=== PATIENT | female | born 1985 | race Caucasian/White ===

== ENCOUNTER → 2019-07-01 13:29 | Outpatient (BNVA) | payer MEDICAID, SELFPAY | PROVIDERS: PCP Nurse Practitioner Family; Visit Provider Nurse Practitioner | DX: J06.9 Acute upper respiratory infection, unspecified (principal); H66.92 Otitis media, unspecified, left ear | CPT/HCPCS: 87804 ==

== ENCOUNTER 2019-07-20 19:28 | Emergency (ER) | payer SELFPAY ==
[2019-07-20 19:28] VITALS: BP 143/90; PULSE 84; RESP 20; TEMP 36.7; O2SAT 98; BMI 34.4
--- NOTE | 2019-07-20 19:41 | ED_ITS ---
HPI - Fall General: Chief Complaint: Fall Stated Complaint: FALL Time Seen by Provider: 07/20/19 19:41 Source: patient Mode of arrival: EMS History of Present Illness: HPI Narrative: tripped going down a flight of stairs and landed onto R side; complains of R hip and back pain; denies striking her head, LOC, neck/back pain MD complaint: fall Onset (ago): hour(s) Fall from: standing Fall witnessed: yes, by family Place fall occurred: home Loss of consciousness: None Prolonged down time: no Symptoms prior to fall: none Context: tripped/slipped Location of injury: back and other (R hip) Associated symptoms-after fall: Denies abdominal pain, chest pain, headache(s), lightheadedness or neck pain Review of Systems Const: Denies: fever or chills Eyes: Denies: change in vision or blurry vision Card: Denies: chest pain, palpitations, irregular heart rhythm, edema, swelling of feet/ankles, lightheadedness, syncope or pre-syncope Resp: Denies: shortness of breath, productive cough or chest congestion GI: Denies: abdominal pain, nausea or vomiting : Denies: flank pain, difficulty urinating, painful urination, urinary frequency or urinary urgency Musc: Reports: back pain, joint pain and limited range of motion; Denies: neck pain, extremity pain, extremity swelling, joint swelling, redness or joint warmth Neuro: Denies: headache, numbness in extremities, weakness in extremities or changes in sensation PFS ED PFSH: Social History Smoking and tobacco status: current every day smoker Physical Exam Const: COMMON NORMALS: oriented x3, no limitations, alert and well nourished GENERAL APPEARANCE: in distress (in pain) NUTRITIONAL APPEARANCE: obese Eye: COMMON NORMALS: PERRL and EOMs intact bilaterally PUPIL: Yes PERRL Neck/C-Spine: COMMON NORMALS: full ROM and no lymphadenopathy CERVICAL SPINE: Yes cervical ROM normal, No pain with cervical ROM, No cervical spine tenderness and No paracervical muscle tenderness Chest: COMMONS NORMALS: inspection of chest normal and palpation of chest normal Resp: COMMON NORMALS: normal respiratory effort and clear to auscultation bilaterally AUSCULTATION: clear to auscultation bilaterally Cardio: COMMON NORMALS: regular rate and regular rhythm RATE: regular rate RHYTHM: regular rhythm GI: COMMON NORMALS: normal to inspection, nondistended, normoactive bowel sounds, soft to palpation and non-tender PALPATION: Yes soft : COMMON NORMALS: Yes no CVA tenderness BLADDER/KIDNEY EXAM: Yes no CVA tenderness Back/Pelvis: COMMON NORMALS: no CVA tenderness OTHER: TTP lower lumbar spine; no step offs Extremity: RIGHT LOWER EXTREMITY: Yes hip joint Right hip: Yes palpation and Yes ROM (decreased secondary to pain) Neuro: COMMON NORMALS: oriented x3 SENSORIUM/ORIENTATION: Yes alert Skin: COMMON NORMALS: no rashes or lesions noted GENERAL SKIN EXAM: no rashes or lesions noted Course Vital Signs: Vital signs: Vital Signs Temperature 98.1 F 07/20/19 19:28 Pulse Rate 84 07/20/19 19:28 Respiratory Rate 21 H 07/20/19 20:43 Blood Pressure 143/90 07/20/19 19:28 Pulse Oximetry 98 07/20/19 20:43 MDM - Fall Imaging Data^: CT lumbar: Radiologist's impression: [place] [address] CT Scan Report Signed Patient: Nicolasa Conklin Unit #: [id number] : 1985 Acct#:O [id number] Age/Sex: 34 / F ADM Date: 07/20/19 Loc: ER Room/Bed: Attending Dr: Ordering Provider/Ordering MD: Aiyana Garcia Date of Service: 07/20/19 Procedure(s): CT lumbar spine wo con* [id number] Accession Number(s): [id number] Report Number: [id number] PROCEDURE INFORMATION: Exam: CT Lumbar Spine Without Contrast Exam date and time: 07/20/2019 7:50 PM Age: 34 years old Clinical indication: Injury or trauma; Fall; Initial encounter; Blunt trauma (contusions or hematomas); Additional info: Fall; Pain TECHNIQUE: Imaging protocol: Computed tomography images of the lumbar spine without contrast. Total DLP: 2559.67 mGy-cm Radiation optimization: All CT scans at this facility use at least one of these dose optimization techniques: automated exposure control; mA and/or kV adjustment per patient size (includes targeted exams where dose is matched to clinical indication); or iterative reconstruction. COMPARISON: CR Lumbar Spine Flex/Extens [id number] 08/18/2015 9:47 AM FINDINGS: Vertebrae: No acute fracture. Normal alignment. Yzuu-lt-gvfvdtda facet degenerative changes are noted in the lower lumbar spine. Discs/Spinal canal/Neural foramina: No disc herniations. No spinal canal stenosis. No neural foraminal narrowing. There is a tiny disc bulge at L4-L5 without stenosis or significant foraminal narrowing. No additional disc bulge or protrusion. Soft tissues: Unremarkable. CT/CT lumbar spine wo con* [id number] IMPRESSION: No acute findings. Radiation Dose CTDIVOL = (mGy): DLP = 2559.67 (mGy-cm) Dictated By: Nicky Burger Signed By: Nicky Burger Signed Date/Time: 07/20/192044 DD/ 43 XR sacrum/coccyx: My impression: NAD XR R hip/pelvis: Radiologist's impression: NAD Discharge Plan Discharge Patient Disposition: Home, Self-Care Clinical Impression: Fall down stairs Qualifiers: Encounter type: initial encounter Qualified Code(s): W10.8XXA - Fall (on) (from) other stairs and steps, initial encounter Contusion of hip, right Qualifiers: Encounter type: initial encounter Qualified Code(s): S70.01XA - Contusion of right hip, initial encounter Back contusion Qualifiers: Encounter type: initial encounter Laterality: unspecified laterality Qualified Code(s): S20.229A - Contusion of unspecified back wall of thorax, initial encounter Condition: Stable Prescriptions: New hydrocodone-acetaminophen 5-325 mg tablet 1 tab PO Q6H PRN (Reason: pain) Qty: 14 RF: 0 No Action metformin 500 mg tablet 500 mg PO BID 30 Days Qty: 60 RF: 2 promethazine 6.25 mg/5 mL syrup 12.5 mg PO BID PRN (Reason: allergy symptoms) Qty: 200 RF: 0 Discharge Orders: Discharge Order (Routine); Ordered 07/20/19 Ordered By: Aiyana Garcia Referrals: Mika Smith, ELECTROCARDIOGRAPH REPAIRER [Primary Care Provider] - Discharge Activity: Increase activity as tolerated Activity Restrictions/Additional Instructions: Follow up with primary care in 3-5 days if pain does not seem to be improving. Coding Level of Care Code ED [place] Supervisor for Danae Bowling
--- NOTE | 2019-07-20 19:49 | CTR_ITS ---
PROCEDURE INFORMATION: Exam: CT Lumbar Spine Without Contrast Exam date and time: 07/20/2019 7:50 PM Age: 34 years old Clinical indication: Injury or trauma; Fall; Initial encounter; Blunt trauma (contusions or hematomas); Additional info: Fall; Pain TECHNIQUE: Imaging protocol: Computed tomography images of the lumbar spine without contrast. Total DLP: 2559.67 mGy-cm Radiation optimization: All CT scans at this facility use at least one of these dose optimization techniques: automated exposure control; mA and/or kV adjustment per patient size (includes targeted exams where dose is matched to clinical indication); or iterative reconstruction. COMPARISON: Lumbar Spine Flex/Extens [id number] 08/18/2015 9:47 AM FINDINGS: Vertebrae: No acute fracture. Normal alignment. Qjof-th-ltuwhsla facet degenerative changes are noted in the lower lumbar spine. Discs/Spinal canal/Neural foramina: No disc herniations. No spinal canal stenosis. No neural foraminal narrowing. There is a tiny disc bulge at L4-L5 without stenosis or significant foraminal narrowing. No additional disc bulge or protrusion. Soft tissues: Unremarkable. CT/CT lumbar spine wo con* [id number] IMPRESSION: No acute findings. Radiation Dose CTDIVOL = (mGy): DLP = 2559.67 (mGy-cm)
--- NOTE | 2019-07-20 19:49 | XR_ITS ---
WS: [id number] Sacrum and coccyx, 3 views, 07/20/2019 Clinical Data: fall; pain Comparison: None. Findings: No fractures or dislocations are seen. The SI joints and pubic symphysis are unremarkable. No bone de struction or erosion is seen. XR/XR sacrum coccyx min 2V [id number] Impression: Negative sacrum and coccyx.
--- NOTE | 2019-07-20 19:49 | XR_ITS ---
WS: [id number] Right hip, AP and frog leg, AP pelvis, 07/20/2019 Clinical Data: fall/pain Comparison: None. Findings: No fractures or dislocations are seen. The hip joints are intact. The soft tissues are not remarkable . The adjacent pelvis is normal. Right hip is unremarkable. The SI joints and pubic symphysis are normal. The bladder is partly full. XR/XR hip RT 2-3V wo/w pel* [id number] Impression: Negative AP pelvis and right hip.
[2019-07-20 20:43] VITALS: RESP 21; O2SAT 98
[2019-07-20] MEDS: morphine 4 mg/mL SDV 1 mL IM (20:43)
[2019-07-20 21:28] VITALS: BP 122/84; PULSE 75; RESP 16; TEMP 36.5; O2SAT 97
== END 2019-07-20 21:29 | disposition home or self-care (01) ==
LOC: ER 21:12
PROVIDERS: Emergency Provider Physician Assistant; PCP Nurse Practitioner Family
DX: S70.01XA Contusion of right hip, initial encounter (principal); S20.229A Contusion of unspecified back wall of thorax, initial encounter; F17.200 Nicotine dependence, unspecified, uncomplicated; E66.9 Obesity, unspecified; Z68.34 Body mass index [BMI] 34.0-34.9, adult; W10.9XXA Fall (on) (from) unspecified stairs and steps, initial encounter; Y92.009 Unspecified place in unspecified non-institutional (private) residence as the place of occurrence of the external cause
CPT/HCPCS: 72131; 72220; 73502; 96372; 99281; 99283; J2270

== ENCOUNTER → 2019-08-12 08:37 | Outpatient (BNVA) | payer SELFPAY | PROVIDERS: PCP Nurse Practitioner Family; Visit Provider Nurse Practitioner | DX: S49.91XA Unspecified injury of right shoulder and upper arm, initial encounter (principal); M25.511 Pain in right shoulder; M25.521 Pain in right elbow; J30.9 Allergic rhinitis, unspecified; X58.XXXA Exposure to other specified factors, initial encounter | CPT/HCPCS: 73030; 73070 ==

== ENCOUNTER 2019-08-31 10:30 | Outpatient (CLI) | payer SELFPAY ==
--- NOTE | 2019-08-31 11:00 | MR_ITS ---
WS: [id number] MRI RIGHT SHOULDER NONCONTRAST TECHNIQUE: Sagittal T2, coronal T1, T2 and proton density imaging. Axial gradient PDE imaging. CLINICAL INFORMATION: Injury COMPARISON: None. FINDINGS: Mild degenerative arthritis at the AC joint. Slight undersurface acromial spurring. Normal subacromia l space. Small amount of tendinopathy in the distal supraspinatus at the insertion. Small amount of f luid along the bursal surface distal supraspinatus tendon. Tiny intrasubstance tear in the distal thi rd supraspinatus tendon along the bursal surface. Trace subacromial/subdeltoid fluid. Normal infraspi natus. Subscapularis is normal. Normal biceps tendon in the bicipital groove. Normal glenoid labrum. Normal biceps labral anchor. Phy siologic fluid along the biceps tendon sheath. MR/MR shoulder RT wo con* [id number] IMPRESSION: 1. Mild degenerative arthritis AC joint with a small amount of edema. Slight u ndersurface spurring. 2. Tendinopathy involving the distal supraspinatus with a small intrasubstance tear. Small amount of edema along the distal supraspinatus tendon. 3. Rotator cuff is otherwise normal in appearance. 4. Biceps tendon is normal in appearance. Normal biceps labral anchor. 5. Glenoid labrum appears grossly normal.
== END 2019-08-31 10:31 | disposition home or self-care (01) ==
LOC: RADSHAW 10:30
PROVIDERS: PCP Nurse Practitioner Family; Visit Provider Nurse Practitioner
DX: S46.911A Strain of unspecified muscle, fascia and tendon at shoulder and upper arm level, right arm, initial encounter (principal); M19.011 Primary osteoarthritis, right shoulder; X58.XXXA Exposure to other specified factors, initial encounter
CPT/HCPCS: 73221

== ENCOUNTER 2019-10-14 12:56 | Outpatient (CLI) | payer MEDICAID, SELFPAY ==
--- NOTE | 2019-10-14 13:18 | MR_ITS ---
WS: [id number] MRI RIGHT SHOULDER ARTHROGRAM HISTORY: PAIN COMPARISON: 08/31/2019 TECHNIQUE: Pre and postcontrast imaging. Gadolinium mixture was injected under fluoroscopy. Coronal T 1 fat sat, sagittal T2 fat sat, coronal T2 fat sat, axial proton density, axial T1 nonfat saturation and ABER sagittal T1 fat sat views are submitted. Precontrast imaging demonstrates mild narrowing of the coracohumeral articulation to 5.6 mm. Biceps t endon is in good position. No marrow signal abnormality. Small osteophytes from the AC joint encroach upon the supraspinatus tendon there is mild thickening of the distal supraspinatus tendon. Postcontrast imaging: There is a small amount of increased signal with thickening of the distal supra spinatus tendon. No definite full-thickness tears are identified. There is no contrast extending into the subacromial or subdeltoid bursa. No muscle atrophy or edema. No labral abnormality or tear. Liu ps tendon in normal position. MR/MR shoulder RT wo/w con [id number] IMPRESSION: 1. No labral tears. 2. Mild distal supraspinatus tendinopathy with fraying along the articular hal face. No full-thickness tear. 3. No joint effusion. 4. Mild AC joint arthropathy and mild narrowing of the coracohumeral interval.
--- NOTE | 2019-10-14 13:25 | IR_ITS ---
WS: [id number] RIGHT SHOULDER ARTHROGRAM UNDER FLUOROSCOPY. PRIOR TO MRI EVALUATION. HISTORY: PAIN COMPARISON: None available. FLUOROSCOPY TIME: 1.2 minutes. Procedure, risks and complications were explained to the patient. Consent has been obtained. Under fluoroscopic guidance the skin is marked over the medial superior third of the humeral head, cl eansed with ChloraPrep and anesthetized with lidocaine. 22-gauge spinal needle is inserted to the cor bismark of the humeral head. Test injection with Omnipaque reveals the needle is appropriately positioned in the joint. A mixture of 10 cc sterile saline, 5 cc Omnipaque and 0.1 mmol gadolinium are injected under fluoroscopic guidance. Patient tolerated the joint distention well. No complications. Uncomplicated injection of contrast into the joint space. No extravasation from the joint space by fl uoroscopy. IR/IR arthrogram shoulderRT [id number] IMPRESSION: Uncomplicated RIGHT shoulder joint injection prior to MRI.
[2019-10-14] MEDS: iohexol 240 mg/mL 50 mL Btl INTRA-ARTI (14:16)
== END 2019-10-14 12:57 | disposition home or self-care (01) ==
PROVIDERS: PCP Nurse Practitioner Family; Visit Provider Orthopaedic Surgery
DX: M25.511 Pain in right shoulder (principal); M12.811 Other specific arthropathies, not elsewhere classified, right shoulder
CPT/HCPCS: 23350; 73223; 77002; A9579; Q9966

== ENCOUNTER → 2019-11-04 17:11 | Outpatient (BNVA) | payer MEDICAID, SELFPAY | PROVIDERS: PCP Nurse Practitioner Family; Visit Provider Nurse Practitioner Family | DX: N63.11 Unspecified lump in the right breast, upper outer quadrant (principal); N64.4 Mastodynia | CPT/HCPCS: 36415; 80053; 85025 ==

== ENCOUNTER 2019-11-26 08:18 | Outpatient (CLI) | payer MEDICAID, SELFPAY ==
--- NOTE | 2019-11-26 08:30 | MM_ITS ---
WS: [id number] DIAGNOSTIC BILATERAL DIGITAL MAMMOGRAM WITH CAD RIGHT breast ultrasound, limited HISTORY: breast lump COMPARISON: None available. TECHNIQUE: Bilateral craniocaudad, mediolateral oblique, and mediolateral views are submitted. Spot c ompression RIGHT CC Computer aided detection utilized. Breast composition: There are scattered areas of fibroglandular density. Normal fibroglandular parenc hyma. No suspicious masses or calcifications. Palpable marker is placed at 12:00. No underlying nodul e. RIGHT breast ultrasound: At 12:00 in the area of the palpable abnormality is a nearly isoechoic nodule measuring 1.1 x 0.7 x 0 .8 cm. No significant increased vascularity. This could be a single lobule of normal breast tissue or fibroadenoma. Ultrasound-guided biopsy recommended of the RIGHT breast mass at 12:00, 3 cm from the nipple. This co rresponds to the palpable abnormality may be benign fibroadenoma or lobulated normal breast tissue. F avor benign etiology due to imaging characteristics. MM/[place] [id number] IMPRESSION: BI-RADS: 4A-Suspicious: Low FOLLOW UP: Biopsy Recommended
--- NOTE | 2019-11-26 09:30 | US_ITS ---
WS: [id number] DIAGNOSTIC BILATERAL DIGITAL MAMMOGRAM WITH CAD RIGHT breast ultrasound, limited HISTORY: breast lump COMPARISON: None available. TECHNIQUE: Bilateral craniocaudad, mediolateral oblique, and mediolateral views are submitted. Spot c ompression RIGHT CC Computer aided detection utilized. Breast composition: There are scattered areas of fibroglandular density. Normal fibroglandular parenc hyma. No suspicious masses or calcifications. Palpable marker is placed at 12:00. No underlying nodul e. RIGHT breast ultrasound: At 12:00 in the area of the palpable abnormality is a nearly isoechoic nodule measuring 1.1 x 0.7 x 0 .8 cm. No significant increased vascularity. This could be a single lobule of normal breast tissue or fibroadenoma. Ultrasound-guided biopsy recommended of the RIGHT breast mass at 12:00, 3 cm from the nipple. This co rresponds to the palpable abnormality may be benign fibroadenoma or lobulated normal breast tissue. F avor benign etiology due to imaging characteristics. US/US breast RT complete [id number] IMPRESSION: BI-RADS: 4A-Suspicious: Low FOLLOW UP: Biopsy Recommended
== END 2019-11-26 08:19 | disposition home or self-care (01) ==
LOC: RADSHAW 08:18
PROVIDERS: PCP Nurse Practitioner Family; Visit Provider Nurse Practitioner Family
DX: N63.11 Unspecified lump in the right breast, upper outer quadrant (principal); N64.4 Mastodynia
CPT/HCPCS: 76641; 77066

== ENCOUNTER 2019-12-04 12:05 | Outpatient (CLI) | payer MEDICAID, SELFPAY ==
--- NOTE | 2019-12-04 13:00 | US_ITS ---
WS: [id number] ULTRASOUND-GUIDED RIGHT BREAST BIOPSY HISTORY: Abnormal mammo COMPARISON: None. Procedure, risks and complications are explained to the patient. Medications are reviewed. Consent is obtained. The mass in the RIGHT breast is localized with ultrasound. Mass at 12:00. Skin is cleansed with Chlor aPrep and anesthetized with 1% buffered lidocaine. Small dermatome is made. Under sterile conditions mass is biopsied with a 14-gauge Achieve needle. Multiple core biopsies are performed. Material place d in formalin and sent to pathology for review. No complications encountered. Breast tissue marker (Bard ultrasound enhanced ribbon): Single. Patient left the radiology suite with no complications. [place] is instructed [place] [facility]. 1. Uncomplicated core needle biopsy RIGHT breast mass at 12:00, 3 cm from the nipple. 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 No malignancy . RECOMMENDATION: 6 month follow-up RIGHT mammogram. Mammographic and ultrasound and pathologic findings are concordant.
== END 2019-12-04 12:06 | disposition home or self-care (01) ==
LOC: RAD 12:07
PROVIDERS: PCP Nurse Practitioner Family; Visit Provider Nurse Practitioner Family
DX: R92.8 Other abnormal and inconclusive findings on diagnostic imaging of breast (principal); N60.31 Fibrosclerosis of right breast; N60.41 Mammary duct ectasia of right breast
CPT/HCPCS: 19083; 88305

== ENCOUNTER 2019-12-14 06:40 | Day surgery (SDC) | payer MEDICAID, SELFPAY ==
[2019-12-11 13:49] VITALS: BMI 33.0
--- NOTE | 2019-12-14 | US_ITS ---
WS: [id number] ULTRASOUND-GUIDED RIGHT BREAST NEEDLE LOCALIZATION HISTORY: wire localization lumpectomy, right breast Procedure, risks and complications were explained to the patient. Consent is obtained. Skin is cleansed with ChloraPrep and anesthetized with 1% buffered lidocaine. Needle and guidewire pl aced to the area of concern with no complications. Ultrasound guidance performed during the needle lo calization. Guidewire is left within the lesion at 12:00. Guidewire secured and no complications enco untered. Patient is being transported to the OR suite. Specimen radiograph is also reviewed. Lesion is contained within the specimen along with the guidewir e. 1. Uncomplicated wire localization RIGHT breast mass at 12:00. PATHOLOGY RESULTS: Benign breast tissue with stromal fibrosis. Pseudoangiomatous stromal hyperplasia. No malignancy. RECOMMENDATIONS: Diagnostic RIGHT mammogram in 6 months. US/US breast surgical specimen IMPRESSION:
--- NOTE | 2019-12-14 07:10 | W.PM.OPSUD ---
Surgery/Procedure H&P Update DATE OF PROCEDURE: December 14, 2019 DATE H&P PERFORMED: 12/08/19 H&P UPDATE INFORMATION: I have reviewed H&P completed within last 30 days, I have examined patient prior to procedure and No changes to prior documentation PREOP DIAGNOSIS: Right breast mass PLANNED PROCEDURE: Operation Date: 12/14/19 09:35 Proposed Procedures p Breast Biopsy Needle Localization [id number] N63.10(Right) - Aroldo Egan MD s Lumpectomy(Right) - Aroldo Egan MD
[2019-12-14] MEDS: sodium chloride 0.9% 1,000 ML 30 ML IV (07:20)
[2019-12-14 07:21] LABS: Glucose Point of Care 107 mg/dL (70-110)
--- NOTE | 2019-12-14 07:35 | ANES.PREANE2 ---
Pre-Anesthetic Assessment Pre-Anesthetic Assessment: Height/Weight: Height 1.78 m Weight 104.326 kg Preop Diagnosis: Right breast mass Proposed Procedure: Operation Date: 12/14/19 09:35 Proposed Procedures p Breast Biopsy Needle Localization [id number] N63.10(Right) - Aroldo Egan MD s Lumpectomy(Right) - Aroldo Egan MD Familial anesthetic complications: NOne Was Beta Obinna taken within 24 hours: N/A Last intake: Intake Last Liquid Date 12/14/19 Last Liquid Time 05:00 Last Solid Date 12/13/19 Last Solid Time 21:00 Social: Social History: Tobacco and No alcohol Exam: Pre-Anes Outpt Exam: alert, oriented x 3, clear to auscultation bilaterally and regular rate & rhythm Airway: Cervical ROM: WNL MP: 3 Dentition: False Pulmonary: Pulmonary: Asthma Metabolic: Metabolic: Morbid obesity Musc/skel: Musc/skel: OA/DJD Neuropsych: Neuropsych: None reported Anesthetic Plan: ASA status: 2 Anesthesia: General Risk of > 500 ml blood loss (7ml/kg in children): No Meds/Allergies Current Medications: Current Medications Generic Name Dose Route Start Last Admin Trade Name Freq PRN Reason Stop Dose Admin Sodium Chloride 1,000 mls @ 30 ml s/hr 12/14/19 07:00 12/14/19 07:20 Sodium Chloride 0.9% IV 12/15/19 06:59 30 mls/hr .Q24H CHAZ Administration PFSH Anesthesia PFSH: Medical History (Updated 12/08/19 @ 15:54 by Aroldo Egan MD) Breast mass, right Depression [employer] has history of depression and was seen in April 2019 and started on Lexapro 10mg. Surgical History History of appendectomy History of carpal tunnel release History of cholecystectomy History of hysterectomy Family History Denies family history of Anesthesia complication Bleeding disorder Social History Smoking and tobacco status: current every day smoker Data Anesthesia Other Labs: Laboratory Results - last 48 hr 12/14/19 07:14 POC Glucose 107 Cardiac Studies: No Data to Display
--- NOTE | 2019-12-14 07:56 | US_ITS ---
WS: [id number] ULTRASOUND-GUIDED RIGHT BREAST NEEDLE LOCALIZATION HISTORY: wire localization lumpectomy, right breast Procedure, risks and complications were explained to the patient. Consent is obtained. Skin is cleansed with ChloraPrep and anesthetized with 1% buffered lidocaine. Needle and guidewire pl aced to the area of concern with no complications. Ultrasound guidance performed during the needle lo calization. Guidewire is left within the lesion at 12:00. Guidewire secured and no complications enco untered. Patient is being transported to the OR suite. Specimen radiograph is also reviewed. Lesion is contained within the specimen along with the guidewir e. 1. Uncomplicated wire localization RIGHT breast mass at 12:00. PATHOLOGY RESULTS: Benign breast tissue with stromal fibrosis. Pseudoangiomatous stromal hyperplasia. No malignancy. RECOMMENDATIONS: Diagnostic RIGHT mammogram in 6 months. US/[place] [id number] IMPRESSION:
[2019-12-14] MEDS: midazolam 1 mg/mL INJ 2 mL 2 MG IVP (08:01)
[2019-12-14] MEDS: vancomycin 1,000 MG in sodium chloride 0.9% 250 ML 250 MG IV (09:37)
[2019-12-14] MEDS: lidocaine 1% INJ 20 mL SUBCUT (10:32)
[2019-12-14 10:55] VITALS: BP 135/81; PULSE 90; RESP 18; TEMP 36.8; O2SAT 99
[2019-12-14 11:11] VITALS: BP 108/77; PULSE 85; RESP 18; O2SAT 99
[2019-12-14] MEDS: HYDROcodone-acetaminophen 5-325 mg Tablet 1 TAB PO (11:15)
--- NOTE | 2019-12-14 11:58 | P.OP_ITS ---
Operative Report Date of procedure: December 14, 2019 Pre-op Diagnosis: Right breast mass Post-op diagnosis: same Procedure Done: Wire localization lumpectomy right breast Specimens removed/disposition: Right breast mass 2 o'clock position, short stitch superior, long stitch lateral Surgeon: Aroldo Egan Anesthesia: MAC Estimated blood loss (mL): 10 Condition: stable Disposition: same day Procedure: The wire localization of the mammographic abnormality was performed by the radiologist under ultrasound guidance and the patient was transferred to operating room and placed under MAC after IV antibiotic had been administered. The right breast was prepped and draped in a manner . A curvilinear incision was made over the areolar margin at 12'o clock inferior to the marking over the mammographic abnormality, subcutaneous tissue was divided and skin flaps were raised superiorly and inferiorly. The localization wire was grasped through the incision and using electrocautery the wire along with the breast tissue containi ng mammographic abnormality was dissected free from the surrounding tissue. Using 2-0 silk suture, short stitch was placed superiorly and a long stitch was placed laterally.The wound was irrigated with saline, hemostasis ensured with electrocautery and subcutaneous tissues approximated using 3-0 running Vicryl suture and skin was closed using running subcuticular 4-0 Monocryl sutures and Dermabond. 1% lidocaine with 0.5% Marcaine was infiltrated into the lumpectomy site. Fluffs were used for pressure dressing. Patient was transferred to recovery room and stable condition The lumpectomy specimens were sent to mammography to obtain radiological confirmation of complete excision of the mammographic abnormality.
== END 2019-12-14 11:22 | disposition home or self-care (01) ==
PROVIDERS: PCP Nurse Practitioner Family; Visit Provider Surgery
PROC: (CPT 19301; principal; 2019-12-14 09:30)
DX: N63.10 Unspecified lump in the right breast, unspecified quadrant (principal); J45.909 Unspecified asthma, uncomplicated; E66.01 Morbid (severe) obesity due to excess calories; Z68.33 Body mass index [BMI] 33.0-33.9, adult; M19.90 Unspecified osteoarthritis, unspecified site; F17.210 Nicotine dependence, cigarettes, uncomplicated; Z79.891 Long term (current) use of opiate analgesic; F32.9 Major depressive disorder, single episode, unspecified
CPT/HCPCS: 19301; 12345; 19285; 36416; 82962; 88305; J2250; J2704; J3010; J3370; J3490; J7030; J7050

== ENCOUNTER 2020-01-01 14:49 | Emergency (ER) | payer MEDICAID, SELFPAY ==
[2020-01-01 14:53] VITALS: BP 143/102; PULSE 102; RESP 16; TEMP 36.6; O2SAT 97; BMI 33.0
--- NOTE | 2020-01-01 15:02 | US_ITS ---
WS: [id number] ULTRASOUND RIGHT BREAST HISTORY: pain following lumpectomy surgery COMPARISON: 12/14/2019 TECHNIQUE: 2-D and Doppler. Infiltrating edema and fluid in the soft tissues of the RIGHT breast at 12:00 near the surgical site. No increased vascularity. No well formed collection or abscess. Fluid is minimally complex. Collecti on measures 4.9 x 1.5 cm. US/US breast RT limited* [id number] IMPRESSION: BI-RADS: 3-Probably Benign FOLLOW-UP: See Report Small amount of complex fluid at the surgical site of the RIGHT breast. No absc ess. Probably normal postoperative seroma. Follow-up with surgeon.
--- NOTE | 2020-01-01 15:02 | W.ED.SKABFB ---
HPI - Skin/Abscess/Foreign Bdy General: Chief complaint: Chest Pain Stated complaint: cp post surgery Time Seen by Provider: 01/01/20 14:54 Source: patient Mode of arrival: ambulatory Limitations: no limitations History of Present Illness: HPI narrative: Patient is a 34-year-old female who presents to ED today with complaints of pain in her right breast. Patient tells me approximately 2 weeks ago she had a lumpectomy performed by Dr. Egan. Patient tells me yesterday evening she began developing pain in the breast. According to previous documentation she has been seen by PCP previously for pain in her breast following the surgery. She has not noticed any redness or swelling. She has not noticed any nipple discharge. MD complaint: other (right breast pain following surgery) Review of Systems Skin/Breast: Reports: breast tenderness and breast pain; Denies: sores, new lesions, changes in skin color, breast swelling, nipple discharge or breast skin changes PFSH ED PFSH: Medical History (Updated 01/01/20 @ 16:25 by LEOLA Tenorio) Breast mass, right Depression Yung has history of depression and was seen in April 2019 and started on Lexapro 10mg. Surgical History History of appendectomy History of carpal tunnel release History of cholecystectomy History of hysterectomy Family History Denies family history of Anesthesia complication Bleeding disorder Social History Smoking and tobacco status: current every day smoker Physical Exam Const: COMMON NORMALS: no acute distress, patient oriented x3, no limitations and alert Chest: OTHER: pt has an incision to 12 o'clock on her areole at that looks healed and infection free; she is having tenderness just superior medial to incision; small area of induration present but no fluctuance, redness, warmth present Neuro: COMMON NORMALS: patient oriented x3 SENSORIUM/ORIENTATION: Yes alert Skin: OTHER: see chest assessment Course Vital Signs: Vital signs: Vital Signs Temperature 97.8 F 01/01/20 14:53 Pulse Rate 102 H 01/01/20 14:53 Respiratory Rate 16 01/01/20 14:53 Blood Pressure 143/102 01/01/20 14:53 Pulse Oximetry 97 01/01/20 14:53 MDM - Skin/Abscess/Foreign Bdy Imaging Data^: US R breast: Radiologist's impression: [address] [address] Ultrasound Report Signed Patient: Nicolasa Conklni Unit #: [id number] : 1985 Age/Sex: 34 / F ADM Date: 01/01/20 Loc: ER Room/Bed: Attending Dr: Ordering Provider/Ordering MD: Aiyana Garcia Date of Service: 01/01/20 Procedure(s): US breast RT limited* [id number] Accession Number(s): [id number] Report Number: [id number] WS: [id number] ULTRASOUND RIGHT BREAST HISTORY: pain following lumpectomy surgery COMPARISON: 12/14/2019 TECHNIQUE: 2-D and Doppler. Infiltrating edema and fluid in the soft tissues of the RIGHT breast at 12:00 near the surgical site. No increased vascularity. No well formed collection or abscess. Fluid is minimally complex. Collection measures 4.9 x 1.5 cm. US/US breast RT limited* [id number] IMPRESSION: BI-RADS: 3-Probably Benign FOLLOW-UP: See Report Small amount of complex fluid at the surgical site of the RIGHT breast. No abscess. Probably normal postoperative seroma. Follow-up with surgeon. Dictated By: Sinai Ragsdale DO Signed By: Sinai Ragsdale DO Signed Date/Time: 01/01/20 1611 DD/ 1608 Discharge Plan Discharge Patient Disposition: Home Clinical Impression: Postoperative seroma Qualifiers: Surgical complication system/body Area: subcutaneous tissue Procedure type: non-dermatologic Qualified Code(s): L76.34 - Postprocedural seroma of skin and subcutaneous tissue following other procedure Condition: Stable Prescriptions: No Action No Known Home Medications RF: 0 Discharge Orders: Discharge Order (Routine); Ordered 01/01/20 Ordered By: Aiyana Garcia Referrals: EMMA Smith, [facility] INS[facility]ATOR [Primary Care Provider] - Activity Restrictions/Additional Instructions: As discussed please followup with Dr. Egan at your scheduled appointment next week. Coding Level of Care Code ED Volunteer Services Specialist for Chg Fwd Exam Problem Focused
[2020-01-01 16:44] VITALS: BP 157/68; PULSE 74; RESP 17; O2SAT 98
--- NOTE | 2020-01-04 09:44 | DCPLANNER ---
communication manager had message to schedule a follow up appointment for patient with general surgery. communication manager called [facility], spoke with Hipolito, gave clinic patients information. communication manager was told that patients information would be printed and reviewed. Clinic will call patient with appointment information.
--- NOTE | 2020-01-06 11:37 | DCPLANNER ---
Patient has a follow up appointment scheduled for , January 07, 2020 at 12:[address] Egan. Clinic will call patient with appointment information.
--- NOTE | 2020-01-14 13:24 | DCPLANNER ---
Patient did not attend appointment scheduled for 01.07.20 with [facility].
== END 2020-01-01 16:50 | disposition home or self-care (01) ==
PROVIDERS: Emergency Provider Physician Assistant; PCP Nurse Practitioner Family
DX: L76.34 Postprocedural seroma of skin and subcutaneous tissue following other procedure (principal); F17.210 Nicotine dependence, cigarettes, uncomplicated
CPT/HCPCS: 12345; 76642; 99281; 99282

== ENCOUNTER → 2020-02-05 12:38 | Outpatient (BNVA) | payer MEDICAID, SELFPAY | PROVIDERS: PCP Nurse Practitioner Family; Visit Provider Psychiatry & Neurology Psychiatry | DX: F33.1 Major depressive disorder, recurrent, moderate (principal); F43.10 Post-traumatic stress disorder, unspecified | CPT/HCPCS: 90792 ==

== ENCOUNTER 2020-02-22 09:28 | Emergency (ER) | payer MEDICAID, SELFPAY ==
[2020-02-22 09:33] VITALS: BP 144/111; PULSE 93; RESP 18; TEMP 37.1; O2SAT 95; BMI 29.5
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
[2020-02-22 11:29] VITALS: BP 134/99; PULSE 89; RESP 18; O2SAT 99
== END 2020-02-22 11:30 | disposition home or self-care (01) ==
PROVIDERS: Emergency Provider Nurse Practitioner Family; PCP Nurse Practitioner Family
DX: S20.212A Contusion of left front wall of thorax, initial encounter (principal); S16.1XXA Strain of muscle, fascia and tendon at neck level, initial encounter; S39.012A Strain of muscle, fascia and tendon of lower back, initial encounter; F17.210 Nicotine dependence, cigarettes, uncomplicated; Y04.2XXA Assault by strike against or bumped into by another person, initial encounter
CPT/HCPCS: 12345; 71101; 72040; 72100; 73030; 99281; 99283

== ENCOUNTER 2020-03-10 04:12 | Emergency (ER) | payer MEDICAID, SELFPAY ==
[2020-03-10 04:13] VITALS: BP 125/99; PULSE 128; RESP 20; TEMP 37.9; O2SAT 96; BMI 34.7
--- NOTE | 2020-03-10 04:23 | XR_ITS ---
WS: [id number] Portable AP upright chest, 03/10/2020 Clinical Data: fever Comparison: PA chest, 02/22/2020. Findings: No nodules, masses or effusions are seen. The heart is normal. The pulmonary vascularity is not increased. No pneumonia or pneumothorax is seen. XR/XR chest 1V portable [id number] Impression: Negative chest.
--- NOTE | 2020-03-10 04:24 | ECG_ITS ---
[facility] Test Date: 2020-03-10 Pat Name: Nicolasa Conklin Department: Room: Gender: Female Armature Winder: : 1985 Requested By: Shahrzad Boyle Order Number: [id number] Niesha MD: Giancarlo Betancourt M.D. Measurements Intervals Moon Rate: 101 P: 76 CT: 138 QRS: 79 QRSD: 82 T: 58 QT: 325 QTc: 423 Interpretive Statements SINUS TACHYCARDIA ABNORMAL RHYTHM ECG No previous ECG available for comparison Electronically Signed On 03-10-2020 9:32:36 CDT by Giancarlo Betancourt M.D. [id number]
--- NOTE | 2020-03-10 04:27 | W.ED.SOB ---
HPI - SOB/Dyspnea General: Chief Complaint: Shortness of Breath/Dyspnea Stated Complaint: body aches, temp Time Seen by Provider: 03/10/20 04:16 Source: patient and EMS Mode of arrival: EMS Limitations: no limitations History of Present Illness: HPI Narrative: 35-year-old female who states of last 2 to 3 days she has been having generalized body aches along with low-grade fevers and a cough. She denies any worsening or improving factors. Patient's temperature here is 100.3. She states she did take Tylenol roughly 2 to 3 hours ago. She states she also had a fall 2 days ago has had left hip pain since then. Denies any worsening improving factors. She has had no known sick contacts. Associated symptoms: Reports fever(s); Deny abdominal pain, chest pain, nausea or vomiting Review of Systems Const: Reports: fever(s), chills and body aches Eyes: Denies: blurry vision or eye discomfort ENMT: Denies: throat pain or dental pain Card: Denies: chest pain Resp: Reports: non-productive cough GI: Denies: abdominal pain, nausea, vomiting or diarrhea : Denies: dysuria Musc: Denies: neck pain or back pain Skin/Breast: Denies: rash Neuro: Denies: headache(s) Psych: Denies: depression Immanuel/Lymph: Denies: easy bruising All/Imm: Denies: urticaria PFSH ED PFSH: Medical History Breast mass, right Depression Paitet has history of depression and was seen in April 2019 and started on Lexapro 10mg. PTSD (post-traumatic stress disorder) Surgical History History of appendectomy History of carpal tunnel release History of cholecystectomy History of hysterectomy Family History Other CAD (coronary artery disease) Cancer Diabetes Hypertension Stroke Denies family history of Anesthesia complication Bleeding disorder Social History Smoking and tobacco status: current every day smoker cigarettes Packs smoked per day: 0.5 Years cigarettes smoked: 22 Quit status (tobacco): considering quitting Second hand smoke exposure: No Alcohol intake: former Adopted: No Caregiver/support person: No Lives independently: Yes Household members: children Housing: Manufactured/Mobile home Marital status: Single Number of children: 2 Number of grandchildren: 0 Highest education level completed: Some College, No Degree service: No Current occupational status: employed 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 Current occupational exposures/hazards: Yes (covid 19) Pets and animals: Yes Pets & animals: cat(s) and dog(s) History of recent travel: No Leisure activites: art and music Sexually active: No Current gender identity: Female Luz/Nondenominational: Uatsdin Special luz needs: No Agree to transfusion: Yes Financial difficulty paying for basics: Not Very Hard Female Reproductive History: Para: 2 Spontaneous abortions: Yes Physical Exam Const: COMMON NORMALS: no acute distress, patient oriented x3 and healthy appearing HENMT: COMMON NORMALS: normocephalic and atraumatic HEAD & SCALP: normocephalic and atraumatic Eye: COMMON NORMALS: Equal, round and reactive pupils present and EOMs intact bilaterally PUPIL: Yes Equal, round and reactive pupils present Neck/C-Spine: COMMON NORMALS: full ROM and supple Chest: COMMONS NORMALS: normal inspection of the chest and normal palpation of entire chest wall Resp: COMMON NORMALS: normal respiratory effort, No retractions, No use of accessory muscles and clear to auscultation bilaterally AUSCULTATION: clear to auscultation bilaterally Cardio: COMMON NORMALS: regular rhythm and No murmurs present (Cardio) RATE: tachycardic RHYTHM: regular rhythm GI: COMMON NORMALS: Normal to inspection, nondistended, normoactive bowel sounds present, Soft to palpation, non-tender and no masses PALPATION: Yes Soft to palpation Extremity: COMMON NORMALS: normal to inspection and full ROM Neuro: COMMON NORMALS: patient oriented x3, moves all extremities and no focal motor deficits Psych: COMMON NORMALS: mental status grossly normal, Normal thought process present and cooperative THOUGHT PROCESS: Normal thought process present Skin: COMMON NORMALS: no rashes or lesions noted and no wounds GENERAL SKIN EXAM: no rashes or lesions noted Course Vital Signs: Vital signs: Vital Signs Temperature 98.5 F 03/10/20 06:05 Pulse Rate 95 03/10/20 06:05 Respiratory Rate 20 H 03/10/20 04:13 Blood Pressure 129/87 03/10/20 06:05 Pulse Oximetry 94 03/10/20 06:05 MDM - SOB/Dyspnea MDM Narrative: Medical decision making narrative: Patient presents here with cough fever and body aches with likely viral syndrome. We will test her for Covid. Patient has no signs of major infection and is stable for discharge and has no respiratory distress. Lab Data: Labs: Lab Results 03/10/20 03/10/20 03/10/20 Range/Units 05:00 05:00 05:09 WBC 5.8 (4.0-10.0) 10^3/ uL RBC 5.06 (4.1-5.3) 10^6/u L Hgb 13.5 (11.5-15.3) g/dL Hct 42.5 (37.0-47.0) % MCV 84.0 (81-99) fL MCH 26.7 L (28.0-34.0) pg MCHC 31.8 (30.0-36.0) g/dL RDW 13.4 (12.1-15.1) % Plt Count 220 (130-400) 10^3/c mm MPV 9.3 (7.4-10.4) fL Neut % (Auto) 70.2 % Lymph % (Auto) 23.1 % Pennington % (Auto) 5.8 % Eos % (Auto) 0.3 % Baso % (Auto) 0.3 % Neut # (Auto) 4.09 (1.8-7.7) 10^3/u L Lymph # (Auto) 1.4 (0.8-4.8) 10^3/u L Pennington # (Auto) 0.3 (0.2-0.9) 10^3/u L Eos # (Auto) 0.0 (0.0-0.8) 10^3/u L Baso # (Auto) 0.0 (0.0-0.1) 10^3/u L Nucleated RBC % (a uto) 0 % Nucleated RBCs # 0.0 /100WBC Sodium 136 (136-145) mmol/L Potassium 3.6 (3.5-5.1) mmol/L Chloride 102 (98-107) mmol/L Carbon Dioxide 21 L (22-29) mmol/L Anion Gap 16.6 (5-19) BUN 10 (6-20) mg/dL Creatinine 0.7 (0.5-0.9) mg/dL GFR Calculation 96.4 (90-130) mL/min Glucose 96 (65-115) mg/dL Calculated Osmolal ity 281 L (285-295) mOsm/k g Calcium 9.5 (8.5-10.5) mg/dL Total Bilirubin 0.2 (0.15-1.2) mg/dL AST 27 (0-32) U/L ALT 31 (0-33) U/L Alkaline Phosphata se 70 (35-105) IU/L Total Protein 7.4 (6.6-8.7) g/dL Albumin 4.2 (3.5-5.2) g/dL Globulin 3.2 (1.3-4.6) g/dL HCG, Qual Negative (Negative) Urine Color (Yellow) Urine Appearance (CLEAR) Urine pH (5-7) Ur Specific Gravit y (1.005-1.030) Urine Protein (Negative) Urine Glucose (UA) (Normal) Urine Ketones (Negative) Urine Blood (Negative) Urine Nitrate (Negative) Urine Bilirubin (Negative) Urine Urobilinogen (Negative) mg/dL Ur Leukocyte Carlene ase (Negative) Urine RBC (0-2) /hpf Urine WBC (0-5) /hpf Ur Squamous Epith Cells (0-5) /hpf Amorphous Sediment Urine Bacteria (NONE) /hpf Urine Mucus /hpf 10/15/20 Range/Units 05:09 WBC (4.0-10.0) 10^3/ uL RBC (4.1-5.3) 10^6/u L Hgb (11.5-15.3) g/dL Hct (37.0-47.0) % MCV (81-99) fL MCH (28.0-34.0) pg MCHC (30.0-36.0) g/dL RDW (12.1-15.1) % Plt Count (130-400) 10^3/c mm MPV (7.4-10.4) fL Neut % (Auto) % Lymph % (Auto) % Pennington % (Auto) % Eos % (Auto) % Baso % (Auto) % Neut # (Auto) (1.8-7.7) 10^3/u L Lymph # (Auto) (0.8-4.8) 10^3/u L Pennington # (Auto) (0.2-0.9) 10^3/u L Eos # (Auto) (0.0-0.8) 10^3/u L Baso # (Auto) (0.0-0.1) 10^3/u L Nucleated RBC % (a uto) % Nucleated RBCs # /100WBC Sodium (136-145) mmol/L Potassium (3.5-5.1) mmol/L Chloride (98-107) mmol/L Carbon Dioxide (22-29) mmol/L Anion Gap (5-19) BUN (6-20) mg/dL Creatinine (0.5-0.9) mg/dL GFR Calculation (90-130) mL/min Glucose (65-115) mg/dL Calculated Osmolal ity (285-295) mOsm/k g Calcium (8.5-10.5) mg/dL Total Bilirubin (0.15-1.2) mg/dL AST (0-32) U/L ALT (0-33) U/L Alkaline Phosphata se (35-105) IU/L Total Protein (6.6-8.7) g/dL Albumin (3.5-5.2) g/dL Globulin (1.3-4.6) g/dL HCG, Qual (Negative) Urine Color Yellow (Yellow) Urine Appearance Clear (CLEAR) Urine pH 5 (5-7) Ur Specific Gravit y 1.010 (1.005-1.030) Urine Protein Neg (Negative) Urine Glucose (UA) Norm (Normal) Urine Ketones Negative (Negative) Urine Blood 3+ H (Negative) Urine Nitrate Negative (Negative) Urine Bilirubin Neg (Negative) Urine Urobilinogen Norm (Negative) mg/dL Ur Leukocyte Carlene ase Negative (Negative) Urine RBC 25-40 H (0-2) /hpf Urine WBC 0-4 H (0-5) /hpf Ur Squamous Epith Cells 5-10 H (0-5) /hpf Amorphous Sediment Not Reportable Urine Bacteria Trace (NONE) /hpf Urine Mucus Trace /hpf Imaging Data^: CXR: Attestation: I personally reviewed and interpreted this imaging study as follows: My impression: no acute abnormality xr l hip: Attestation: I personally reviewed and interpreted this imaging study as follows: My impression: no acute abnormality Discharge Plan Discharge Patient Disposition: Home Clinical Impression: Viral syndrome, Suspected 2019-nCoV infection Condition: Stable Prescriptions: New Naprosyn 500 mg tablet 500 mg PO BID PRN (Reason: pain) Qty: 20 RF: 0 No Action albuterol sulfate 90 mcg/actuation HFA aerosol inhaler 2 puff INHALATION Q6H PRNRF: 0 buspirone 10 mg tablet 20 mg PO BID PRN (Reason: anxiety) 30 Days Qty: 120 RF: 1 fluoxetine 40 mg capsule 40 mg PO DAILY 30 Days Qty: 30 RF: 3 zolpidem 5 mg tablet 5 mg PO .hs PRN (Reason: sleep) 30 Days Qty: 30 RF: 3 IBU 800 mg tablet 800 mg PO TID PRN (Reason: pain) Qty: 30 RF: 0 Discharge Orders: Discharge Order (Routine); Ordered 03/10/20 Ordered By: Shahrzad Boyle Referrals: EMMA Smith, OFFAL SEPARATOR [Primary Care Provider] - 1-3 days Discharge Diet: Advance as tolerated Discharge Activity: Resume usual activity Patient Instructions: Viral Syndrome (ED) Discharge Date/Time: 03/10/20 06:11 Coding Level of Care Code ED Application Designer for Danae Bowling Exam Comprehensive
--- NOTE | 2020-03-10 04:44 | XR_ITS ---
WS: [id number] Left hip, AP and frog leg views, 03/10/2020 Clinical Data: injury Comparison: Pelvis and right hip, 07/20/2019 Findings: No fractures or dislocations are seen. The hip joint is intact. The soft tissues are not remarkable. The adjacent pelvis is normal. XR/XR hip LT 2-3V wo/w pel* [id number] Impression: Negative left hip.
[2020-03-10 05:07] LABS: Basophils % 0.3 %; Eosinophils % 0.3 %; Hematocrit 42.5 % (37.0-47.0); Hemoglobin 13.5 g/dL (11.5-15.3); Lymphocytes # 1.4 10^3/uL (0.8-4.8); Lymphocytes % 23.1 %; Mean Corpuscular HGB Conc 31.8 g/dL (30.0-36.0); Mean Corpuscular Hemoglobin 26.7 pg (28.0-34.0); Mean Platelet Volume 9.3 fL (7.4-10.4); Monocytes # 0.3 10^3/uL (0.2-0.9); Monocytes % 5.8 %; Neutrophils # 4.09 10^3/uL (1.8-7.7); Neutrophils % 70.2 %; Nucleated Red Blood Cells % 0 %; Platelet Count 220 10^3/cmm (130-400); Red Blood Count 5.06 10^6/uL (4.1-5.3); Red Cell Distribution Width 13.4 % (12.1-15.1); White Blood Count 5.8 10^3/uL (4.0-10.0)
[2020-03-10 05:26] LABS: Alanine Aminotransferase 31 U/L (0-33); Albumin Level 4.2 g/dL (3.5-5.2); Alkaline Phosphatase 70 IU/L (35-105); Anion Gap 16.6 (5-19); Aspartate Amino Transferase 27 U/L (0-32); Blood Urea Nitrogen 10 mg/dL (6-20); Calcium 9.5 mg/dL (8.5-10.5); Carbon Dioxide 21 mmol/L (22-29); Chloride 102 mmol/L (98-107); Creatinine Clr Calc Pharmacy 148.6195; Globulin 3.2 g/dL (1.3-4.6); Glomerular Filtration Rate 96.4 mL/min (90-130); Glucose 96 mg/dL (65-115); Osmolality Calculated 281 mOsm/kg (285-295); Potassium 3.6 mmol/L (3.5-5.1); Sodium 136 mmol/L (136-145); Total Bilirubin 0.2 mg/dL (0.15-1.2); Total Protein 7.4 g/dL (6.6-8.7)
[2020-03-10] MEDS: acetaminophen 500 mg Tablet 1000 MG PO (05:30)
[2020-03-10] MEDS: ketorolac 30 mg/mL INJ 15 MG IVP (05:30)
[2020-03-10] MEDS: sodium chloride 0.9% 1,000 ML 999 ML IV (05:30)
[2020-03-10 05:46] LABS: HCG Qualitative Urine. Negative (Negative)
[2020-03-10] MEDS: HYDROcodone-acetaminophen 7.5-325 mg Tablet 1 TAB PO (05:54)
[2020-03-10 05:57] LABS: Urine Appearance Clear (CLEAR); Urine Color Yellow (Yellow); pH Urine 5 (5-7)
[2020-03-10 05:58] LABS: Add Urine Microscopic? YES; Bilirubin Urine Neg (Negative); Blood Urine 3+ (Negative); Glucose Urine UA Norm (Normal); Ketones Urine Negative (Negative); Leukocyte Esterase Urine Negative (Negative); Nitrate Urine Negative (Negative); Protein Urine Neg (Negative); Urobilinogen Urine Norm (Negative)
[2020-03-10 05:59] LABS: Bacteria Urine TRACE /hpf; RBC Urine 25-40 /hpf (0-2); WBC Urine 0-4 /hpf (0-5)
[2020-03-10 06:00] LABS: Add Urine Culture? Yes; Mucus Urine TRACE /hpf
[2020-03-10 06:05] VITALS: BP 129/87; PULSE 95; TEMP 36.9; O2SAT 94
[2020-03-11 19:17] LABS: Quest SARS-CoV-2 RNA NOT DETECTED (NOT DETECTED)
--- NOTE | 2020-03-12 08:20 | PC.NURSE ---
Patient notified of COVID results at this time.
== END 2020-03-10 06:11 | disposition home or self-care (01) ==
PROVIDERS: Emergency Provider Emergency Medicine; PCP Nurse Practitioner Family
DX: B34.9 Viral infection, unspecified (principal); F17.210 Nicotine dependence, cigarettes, uncomplicated
CPT/HCPCS: 12345; 71045; 73502; 80053; 81001; 81025; 85025; 87086; 87635; 93005; 96361; 96374; 99283; 99284; J1885; J7030

== ENCOUNTER → 2020-03-18 10:44 | Outpatient (BNVA) | payer MEDICAID, SELFPAY | PROVIDERS: PCP Nurse Practitioner Family; Visit Provider Psychiatry & Neurology Psychiatry | DX: F43.10 Post-traumatic stress disorder, unspecified (principal); F33.1 Major depressive disorder, recurrent, moderate | CPT/HCPCS: 99214 ==

== ENCOUNTER 2020-03-20 00:10 | Emergency (ER) | payer MEDICAID, SELFPAY ==
[2020-03-20 00:29] VITALS: BP 124/82; PULSE 114; RESP 18; TEMP 36.7; O2SAT 98; BMI 36.1
[2020-03-20 00:52] VITALS: BP 135/74; PULSE 104; RESP 18; O2SAT 96
--- NOTE | 2020-03-20 01:04 | CTR_ITS ---
PROCEDURE INFORMATION: Exam: CT Lumbar Spine Without Contrast Exam date and time: 03/20/2020 1:07 AM Age: 35 years old Clinical indication: Pain and injury or trauma; Fall; Blunt trauma (contusions or hematomas); Low back pain; Additional info: Lbp with radiculopathy TECHNIQUE: Imaging protocol: Computed tomography images of the lumbar spine without contrast. Radiation optimization: All CT scans at this facility use at least one of these dose optimization techniques: automated exposure control; mA and/or kV adjustment per patient size (includes targeted exams where dose is matched to clinical indication); or iterative reconstruction. COMPARISON: CT lumbar spine wo con* [id number] 2019-07-20 20:16 RADIATION DOSE METRICS: Total DLP (mGy-cm): 2716.15 FINDINGS: Vertebrae: Normal spinal curvature, vertebral body heights, and alignment. No spinal fracture or acute subluxation. Discs/Spinal canal/Neural foramina: Mild diffuse degenerative disc space loss with small disc bulge/protrusions causing up to mild foraminal and spinal stenosis greatest at L3-S1. At L4-L5 there is a central disc protrusion, small right subarticular disc protrusion, and diffuse disc bulging and facet arthropathy causing mild moderate spinal, moderate subarticular, and minimal foraminal stenosis. Soft tissues: Unremarkable. CT/CT lumbar spine wo con* [id number] IMPRESSION: 1. No acute vertebral fracture/subluxation. 2. Mild degenerative disc disease greatest at L4-L5. No substantial change. Radiation Dose CTDIVOL = (mGy): DLP = 2716.15 (mGy-cm)
--- NOTE | 2020-03-20 01:06 | W.ED.BACK ---
HPI - Back Pain/Injury General: Chief Complaint: Back Pain/Injury Stated Complaint: back pain Time Seen by Provider: 03/20/20 00:58 History of Present Illness: HPI Narrative: 35-year-old female patient presents to the emergency department with low back pain. She reports history of degenerative disc disease of her back, lumbar spine, reports sustained a fall approximately 1 week ago. She reports tonight, onset of low back pain with pain that radiates to the bilateral lower extremities. She reports fall sustained due to weakness in her legs. Previous x-ray lumbar spine did not reveal acute abnormalities. MD elicited complaint: back pain, back injury and fall Pertinent past history: prior back pain and recent trauma Onset (ago): day(s) (7) Timing: intermittent and progressively worsening Severity: moderate Similar Symptoms Previously: Yes Quality: sharp, dull, stabbing, aching and spasming Location: lumbar spine Radiation: left leg below the knee and right leg below the knee Exacerbating factors: movement and walking Relieving factors: immobilization and other Context: fall Associated symptoms: Reports no associated symptoms; Deny abdominal pain, chills, dysuria, fever(s), nausea or vomiting Review of Systems General: Reports: 10 or more systems reviewed and unremarkable except in HPI and below Const: Denies: fever(s), chills or diaphoresis Eyes: Denies: blurry vision or eye redness ENMT: Denies: throat pain, dental pain or disequilibrium Card: Denies: chest pain, palpitations or irregular heart rhythm Resp: Denies: dyspnea, productive cough, non-productive cough or wheezing GI: Denies: abdominal pain, nausea or vomiting : Reports: other (History of tubal ligation); Denies: difficulty voiding or dysuria Musc: Reports: back pain and extremity pain (radiculopathy BLE); Denies: neck pain Skin/Breast: Denies: rash or pruritus Neuro: Denies: headache(s), weakness in extremities or behavioral changes Immanuel/Lymph: Denies: easy bruising [facility] ED PFSH: Medical History (Updated 03/20/20 @ 01:40 by SAMSON Graf) Breast mass, right Depression Paitet has history of depression and was seen in April 2019 and started on Lexapro 10mg. PTSD (post-traumatic stress disorder) Surgical History History of appendectomy History of carpal tunnel release History of cholecystectomy History of hysterectomy Family History Other CAD (coronary artery disease) Cancer Diabetes Hypertension Stroke Denies family history of Anesthesia complication Bleeding disorder Social History Smoking and tobacco status: current every day smoker cigarettes Packs smoked per day: 0.5 Years cigarettes smoked: 22 Quit status (tobacco): considering quitting Second hand smoke exposure: No Alcohol intake: former Adopted: No Caregiver/support person: No Lives independently: Yes Household members: children Housing: Manufactured/Mobile home Marital status: Single Number of children: 2 Number of grandchildren: 0 Highest education level completed: Some College, No Degree service: No Current occupational status: employed 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 Current occupational exposures/hazards: Yes (covid 19) Pets and animals: Yes Pets & animals: cat(s) and dog(s) History of recent travel: No Leisure activites: art and music Sexually active: No Current gender identity: Female Luz/Nondenominational: Restorationism Special luz needs: No Agree to transfusion: Yes Financial difficulty paying for basics: Not Very Hard Female Reproductive History: Para: 2 Spontaneous abortions: Yes Physical Exam Const: COMMON NORMALS: no acute distress, patient oriented x3, healthy appearing and alert GENERAL APPEARANCE: cooperative, well hydrated and other (Lying prone as pain worsens when lying on her back.) HENMT: COMMON NORMALS: normocephalic, Normal external nose present and moist oral mucous membranes HEAD & SCALP: normocephalic NOSE: Normal external nose present Eye: COMMON NORMALS: Equal, round and reactive pupils present and EOMs intact bilaterally GENERAL EYE: appearance normal, both eyes and all related structures PUPIL: Yes Equal, round and reactive pupils present Neck/C-Spine: COMMON NORMALS: full ROM and no lymphadenopathy GENERAL: Yes normal visual inspection and Yes trachea midline CERVICAL SPINE: Yes cervical ROM normal, No pain with cervical ROM, No Cervical spine tenderness and No Paracervical muscle tenderness Lymph: LYMPHATIC: no lymphadenopathy noted Chest: COMMONS NORMALS: normal inspection of the chest Resp: COMMON NORMALS: normal respiratory effort and clear to auscultation bilaterally AUSCULTATION: clear to auscultation bilaterally Cardio: COMMON NORMALS: regular rhythm, S1 normal heart sound present, S2 normal heart sound present and Peripheral pulses 2+ throughout RHYTHM: regular rhythm HEART SOUNDS: S1 normal heart sound present and S2 normal heart sound present PERIPHERAL PULSES: Peripheral pulses 2+ throughout GI: COMMON NORMALS: Normal to inspection, nondistended, normoactive bowel sounds present, Soft to palpation and non-tender INSPECTION: Yes normal to inspection PALPATION: Yes Soft to palpation : COMMON NORMALS: Yes no CVA tenderness BLADDER/KIDNEY EXAM: Yes no CVA tenderness and No CVA tenderness Back/Pelvis: COMMON NORMALS: no CVA tenderness and thoracic and lumbar spine normal to inspection GENERAL BACK: No CVA tenderness THORACIC SPINE/UPPER BACK: Yes normal to inspection, No thoracic spinal tenderness and No paraspinal muscle spasm LUMBAR SPINE/LOWER BACK: Yes normal to inspection, Yes ROM limited, Yes pain with ROM, Yes lumbar spinal tenderness Lumbar spinal tenderness location: L2, L3, L4 and L5, Yes paraspinal muscle tenderness, Yes paraspinal muscle spasm, Yes straight leg raise positive right, Yes straight leg raise positive left and Yes bend over test abnormal PELVIS: Yes buttocks normal SACROILIAC JOINTS: Yes SI joints normal SACRUM: no ecchymosis COCCYX: no swelling Extremity: COMMON NORMALS: normal to inspection and capillary refill normal Neuro: COMMON NORMALS: patient oriented x3 and no focal motor deficits SENSORIUM/ORIENTATION: Yes alert MONOFILAMENT EXAM PERFORMED: Yes Monofilament Exam (small fiber function): L great toe: normal, L 3rd toe: normal, L 5th toe: normal, R great toe: normal, R 3rd toe: normal and R 5th toe: normal MOTOR EXAM: 5/5 motor strength present throughout Psych: COMMON NORMALS: mental status grossly normal, Normal thought process present and cooperative ACTIVITY/MOTOR BEHAVIOR: Yes appropriate eye contact THOUGHT PROCESS: Normal thought process present Skin: COMMON NORMALS: no rashes or lesions noted and turgor normal GENERAL SKIN EXAM: no rashes or lesions noted and turgor normal Course ED course: 35-year-old female patient presents to the emergency department with acute low back pain. She reports history of back pain, degenerative disc disease, reports recent fall secondary to bilateral lower extremity weakness. CT scan of the lumbar spine revealed no acute vertebral fracture/subluxation, mild degenerative disc disease at L4-L5. Discussed with patient results of CT scan, she request additional naproxen as this helped with pain. She was also placed on muscle relaxers and steroids. Questions were answered, she advised to return to emergency department if she developed worsening/concerning symptoms. Verbalized understanding. Toradol and Norflex did help with pain. Vital Signs: Vital signs: Vital Signs Temperature 98.1 F 03/20/20 00:29 Pulse Rate 104 H 03/20/20 00:52 Respiratory Rate 18 03/20/20 00:52 Blood Pressure 135/74 03/20/20 00:52 Pulse Oximetry 96 03/20/20 00:52 MDM - Back Pain/Injury Differential Diagnosis: Differential diagnosis back pain/injury: Likely lumbar radiculopathy, sciatica and strain of lumbar region Imaging Data^: Other CT: Radiologist's impression: [place] [address] CT Scan Report Signed Patient: Nicolasa Conklin Unit #: [id number] : 1985 Age/Sex: 35 / F ADM Date: 03/20/20 Loc: ER Room/Bed: Attending Dr: Ordering Provider/Ordering MD: Gunjan Roman Date of Service: 03/20/20 Procedure(s): CT lumbar spine wo con* [id number] Accession Number(s): [id number] Report Number: [id number] PROCEDURE INFORMATION: Exam: CT Lumbar Spine Without Contrast Exam date and time: 03/20/2020 1:07 AM Age: 35 years old Clinical indication: Pain and injury or trauma; Fall; Blunt trauma (contusions or hematomas); Low back pain; Additional info: Lbp with radiculopathy TECHNIQUE: Imaging protocol: Computed tomography images of the lumbar spine without contrast. Radiation optimization: All CT scans at this facility use at least one of these dose optimization techniques: automated exposure control; mA and/or kV adjustment per patient size (includes targeted exams where dose is matched to clinical indication); or iterative reconstruction. COMPARISON: CT lumbar spine wo con* [id number] 2019-07-20 20:16 RADIATION DOSE METRICS: Total DLP (mGy-cm): 2716.15 FINDINGS: Vertebrae: Normal spinal curvature, vertebral body heights, and alignment. No spinal fracture or acute subluxation. Discs/Spinal canal/Neural foramina: Mild diffuse degenerative disc space loss with small disc bulge/protrusions causing up to mild foraminal and spinal stenosis greatest at L3-S1. At L4-L5 there is a central disc protrusion, small right subarticular disc protrusion, and diffuse disc bulging and facet arthropathy causing mild moderate spinal, moderate subarticular, and minimal foraminal stenosis. Soft tissues: Unremarkable. CT/CT lumbar spine wo con* [id number] IMPRESSION: 1. No acute vertebral fracture/subluxation. 2. Mild degenerative disc disease greatest at L4-L5. No substantial change. Radiation Dose CTDIVOL = (mGy): DLP = 2716.15 (mGy-cm) Dictated By: Alfonso Medrano MD Signed By: Alfonso Medrano MD Signed Date/Time: 03/20/20133 DD/ 2 Discharge Plan Discharge Patient Disposition: Home Clinical Impression: Lumbar back pain, Lumbar radiculopathy Condition: Stable Prescriptions: New naproxen 500 mg tablet 500 mg PO BID PRN (Reason: pain) Qty: 30 RF: 0 methylprednisolone 4 mg tablets,dose pack See Rx Instructions .ROUTE .COMPLEX Qty: 21 RF: 0 cyclobenzaprine 10 mg tablet 10 mg PO TID PRN (Reason: muscle spasm) Qty: 20 RF: 0 No Action albuterol sulfate 90 mcg/actuation HFA aerosol inhaler 2 puff INHALATION Q6H PRNRF: 0 fluoxetine 40 mg capsule 40 mg PO DAILY 30 Days Qty: 30 RF: 3 zolpidem 5 mg tablet 5 mg PO .hs PRN (Reason: sleep) 30 Days Qty: 30 RF: 3 IBU 800 mg tablet 800 mg PO TID PRN (Reason: pain) Qty: 30 RF: 0 Discharge Orders: Discharge Order (Routine); Ordered 03/20/20 Ordered By: Gunjan Roman Referrals: EMMA Smith, COLLEGE INSTRUCTOR [Primary Care Provider] - Discharge Diet: Usual diet Discharge Activity: Limit activity as instructed Patient Instructions: Acute Low Back Pain (ED), Lumbar Radiculopathy (ED) Activity Restrictions/Additional Instructions: Follow-up with your primary care physician next week for pain evaluation Return to the emergency department if you develop bowel or bladder incontinence, weakness in the legs, inability to feel your legs No lifting greater than 10 pounds, no bending or stooping or twisting at the waist until cleared by your primary care provider. Take naproxen with food Take steroids with food No driving or operating heavy machinery while taking cyclobenzaprine Stand Alone Forms: Work/School Release Coding Level of Care Code ED Veterinary Pharmacologist for Danae Fwd Exam Comprehensive
[2020-03-20] MEDS: orphenadrine 30 mg/mL Inj 2 mL 60 MG IM (01:38)
[2020-03-20] MEDS: ketorolac 60 mg/2 mL INJ IM (01:39)
[2020-03-20 01:57] VITALS: BP 125/73; PULSE 87; RESP 16; O2SAT 96
== END 2020-03-20 01:58 | disposition home or self-care (01) ==
PROVIDERS: Emergency Provider Nurse Practitioner Family; PCP Nurse Practitioner Family
DX: M54.16 Radiculopathy, lumbar region (principal); F17.210 Nicotine dependence, cigarettes, uncomplicated
CPT/HCPCS: 12345; 72131; 96372; 99281; 99283; J1885; J2360

== ENCOUNTER → 2020-04-17 11:56 | Outpatient (BNVA) | payer MEDICAID, SELFPAY | PROVIDERS: PCP Nurse Practitioner Family; Visit Provider Nurse Practitioner | DX: M25.571 Pain in right ankle and joints of right foot (principal); W19.XXXA Unspecified fall, initial encounter; M25.471 Effusion, right ankle | CPT/HCPCS: 73610 ==

== ENCOUNTER → 2020-05-03 08:15 | Outpatient (BNVA) | payer MEDICAID, SELFPAY | PROVIDERS: PCP Nurse Practitioner Family; Visit Provider Psychiatry & Neurology Psychiatry | DX: F43.10 Post-traumatic stress disorder, unspecified (principal); F33.1 Major depressive disorder, recurrent, moderate | CPT/HCPCS: 99214 ==

== ENCOUNTER → 2020-05-29 16:58 | Outpatient (BNVA) | payer MEDICAID, SELFPAY | PROVIDERS: PCP Nurse Practitioner Family | DX: S80.11XA Contusion of right lower leg, initial encounter (principal); W19.XXXA Unspecified fall, initial encounter; Z68.34 Body mass index [BMI] 34.0-34.9, adult; F17.210 Nicotine dependence, cigarettes, uncomplicated | CPT/HCPCS: 73562 ==

== ENCOUNTER → 2020-09-27 15:19 | Outpatient (BNVA) | payer MEDICAID, SELFPAY | PROVIDERS: PCP Nurse Practitioner Family; Visit Provider Psychiatry & Neurology Psychiatry | DX: F33.1 Major depressive disorder, recurrent, moderate (principal); F43.10 Post-traumatic stress disorder, unspecified | CPT/HCPCS: 99214 ==

== ENCOUNTER → 2020-10-11 08:57 | Outpatient (BNVA) | payer MEDICAID, SELFPAY | PROVIDERS: PCP Nurse Practitioner Family; Referring Provider Dermatology; Visit Provider Orthopaedic Surgery | DX: M54.9 Dorsalgia, unspecified (principal) | CPT/HCPCS: 72110 ==

== ENCOUNTER 2020-10-11 22:54 | Emergency (ER) | payer MEDICAID, SELFPAY ==
[2020-10-11 22:56] VITALS: BP 163/106; PULSE 112; RESP 20; TEMP 36.6; O2SAT 99; BMI 34.0
--- NOTE | 2020-10-11 23:16 | W.ED.BACK ---
HPI - Back Pain/Injury General: Chief Complaint: Back Pain/Injury Stated Complaint: lower back pain Time Seen by Provider: 10/11/20 22:55 History of Present Illness: HPI Narrative: Patient is a 35-year-old female comes to the ED with chronic lower back pain. Patient says she saw Dr. Cunningham the orthospine doctor today and he put her on a prescription of prednisone. She is set up to get an MRI of her spine in about a week. Patient denies any acute injury or trauma to cause back pain. 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 Pain rated 10 out of 10 in the lower back and she says it radiates down both right and left lower extremities. Denies any cauda equina symptoms. Patient also has a history of anxiety and is currently feeling anxious due to her back pain. Associated symptoms: Deny abdominal pain, chills, dysuria, fatigue, fever(s), hematuria, nausea or vomiting Review of Systems Const: Denies: fever(s), chills or fatigue Eyes: Denies: change in vision or eye discomfort ENMT: Denies: throat pain, odynophagia, nasal discharge or nasal congestion Card: Denies: chest pain, palpitations, edema, swelling of feet/ankles, dyspnea on exertion or orthopnea Resp: Denies: dyspnea, productive cough or non-productive cough GI: Denies: abdominal pain, nausea, vomiting, diarrhea, constipation or hematochezia : Denies: flank pain, dysuria or hematuria Musc: Reports: back pain; Denies: neck pain or extremity swelling Skin/Breast: Denies: rash or new lesions Neuro: Denies: headache(s), numbness in extremities or weakness in extremities Psych: Reports: anxiety PFSH ED PFSH: Medical History Breast mass, right Depression Yung has history of depression and was seen in April 2019 and started on Lexapro 10mg. DANIEL (generalized anxiety disorder) PTSD (post-traumatic stress disorder) Surgical History History of appendectomy History of carpal tunnel release History of cholecystectomy History of hysterectomy Family History Other CAD (coronary artery disease) Cancer Diabetes Hypertension Stroke Denies family history of Anesthesia complication Bleeding disorder Social History Smoking and tobacco status: current every day smoker cigarettes Packs smoked per day: 0.5 Years cigarettes smoked: 22 Quit status (tobacco): considering quitting Second hand smoke exposure: No Alcohol intake: former Adopted: No Caregiver/support person: No Lives independently: Yes Household members: children Housing: Manufactured/Mobile home Marital status: Single Number of children: 2 Number of grandchildren: 0 Highest education level completed: Some College, No Degree service: No Current occupational status: employed 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 [employer] Current occupational exposures/hazards: Yes (covid 19) Pets and animals: Yes Pets & animals: cat(s) and dog(s) History of recent travel: No Leisure activites: art and music Sexually active: No Current gender identity: Female Luz/Anabaptist: Christianity Special luz needs: No Agree to transfusion: Yes Financial difficulty paying for basics: Not Very Hard Female Reproductive History: Para: 2 Spontaneous abortions: Yes Physical Exam Const: COMMON NORMALS: no acute distress, patient oriented x3 and alert GENERAL APPEARANCE: cooperative and comfortable HENMT: COMMON NORMALS: normocephalic HEAD & SCALP: normocephalic MOUTH: Normal oral and palatal mucosa present THROAT: posterior oropharynx normal and uvula midline Neck/C-Spine: COMMON NORMALS: supple GENERAL: Yes normal visual inspection Resp: COMMON NORMALS: normal respiratory effort, No retractions, No use of accessory muscles and clear to auscultation bilaterally AUSCULTATION: clear to auscultation bilaterally Cardio: COMMON NORMALS: regular rate, regular rhythm, S1 normal heart sound present, S2 normal heart sound present, No gallops present (Cardio), No clicks present (Cardio), No murmurs present (Cardio) and Peripheral pulses 2+ throughout RATE: regular rate RHYTHM: regular rhythm HEART SOUNDS: S1 normal heart sound present and S2 normal heart sound present PERIPHERAL PULSES: Peripheral pulses 2+ throughout GI: COMMON NORMALS: Normal to inspection, nondistended, normoactive bowel sounds present, Soft to palpation, non-tender and no masses PALPATION: Yes Soft to palpation : COMMON NORMALS: Yes no CVA tenderness BLADDER/KIDNEY EXAM: Yes no CVA tenderness Back/Pelvis: COMMON NORMALS: no CVA tenderness LUMBAR SPINE/LOWER BACK: Yes lumbar spinal tenderness, Yes paraspinal muscle tenderness Lumbar paraspinal muscle tenderness: bilateral Bilateral lumbar paraspinal muscle tenderness: L3, L4 and L5, Yes straight leg raise positive right and Yes straight leg raise positive left Extremity: COMMON NORMALS: normal to inspection and no pedal edema Neuro: COMMON NORMALS: patient oriented x3 and moves all extremities SENSORIUM/ORIENTATION: Yes alert Psych: MOOD & AFFECT: Yes anxious Skin: GENERAL SKIN EXAM: dry skin Course Vital Signs: Vital signs: Vital Signs Temperature 97.9 F 10/11/20 22:56 Pulse Rate 90 10/11/20 23:46 Respiratory Rate 16 10/11/20 23:46 Blood Pressure 154/92 10/11/20 23:46 Pulse Oximetry 96 10/11/20 23:46 MDM - Back Pain/Injury MDM Narrative: Medical decision making narrative: Patient is a 35-year-old female comes to the ED with chronic back pain. Patient saw Dr. Cunningham the orthospine doctor today and he put her on a prescription of prednisone. She has a MRI of her spine set up for next week. Patient comes here to the ED for back pain that radiates down into both right and left lower extremities and she denies any acute injury or trauma to cause pain. Patient also describes feeling a little anxious especially due to her increased pain. Exam was remarkable for lumbar paraspinal muscle tenderness bilaterally along with positive straight leg test on both right and left legs. She denies any cauda equina symptoms. Patient was given morphine and Ativan while here in the ED. She was discharged home with a prescription for methocarbamol. Patient diagnosed with lumbar radiculopathy and anxiety and she was told to follow-up with Dr. Cunningham at her next appointment. Return to ED precautions given. Patient understood and agreed with plan. Discharge Plan Discharge Patient Disposition: Home Clinical Impression: Lumbar radiculopathy, Anxiety Condition: Stable Prescriptions: New methocarbamol 750 mg tablet 750 mg PO Q8H Qty: 20 RF: 0 No Action fluoxetine 40 mg capsule 80 mg PO DAILY 30 Days Qty: 60 RF: 3 prednisone 20 mg tablet 20 mg PO DAILY Qty: 15 RF: 0 albuterol sulfate 90 mcg/actuation HFA aerosol inhaler 2 puff INHALATION Q6H PRN (Reason: shortness of breath or wheezing) Qty: 6.7 RF: 1 levocetirizine [Xyzal] 5 mg tablet 5 mg PO DAILY Qty: 30 RF: 2 Discharge Orders: Discharge ED (Routine); Ordered 10/11/20 Ordered By: Marv Abbott Referrals: EMMA Smith, ENGINEERING CONSULTANT [Primary Care Provider] - Discharge Diet: Regular Discharge Activity: Increase activity as tolerated Patient Instructions: Lumbar Radiculopathy (ED), Anxiety (ED) Activity Restrictions/Additional Instructions: Follow-up with Dr. Cunningham at your next appointment. Continue taking all previously prescribed take medications. Methocarbamol is a muscle relaxer and can cause some drowsiness so take before going to bed. Apply cold pack or heat on lower back and stretch lower back daily. Return to the ER or your medical provider if condition worsens. Please read and understand discharge instructions. Thank you for choosing [facility] for your healthcare needs today. Please realize this is an emergency room and that we are providing you with a medical screening exam and this may not be complete and all inclusive of all the testing and or work up that you may need to determine your ailment or severity of your illness. It is very important that you follow up as instructed or that you return to the Emergency Department should you have concerns or if your condition changes or worsens in any way. Stand Alone Forms: Work/School Release Coding Level of Care Code ED Lithographic Camera Operator for Danae Bowling
[2020-10-11] MEDS: LORazepam 1 mg Tablet PO (23:28)
[2020-10-11 23:29] VITALS: RESP 18; O2SAT 99
[2020-10-11] MEDS: morphine 4 mg/mL SDV 1 mL IM (23:29)
[2020-10-11 23:39] VITALS: BP 163/103; PULSE 88; RESP 16; O2SAT 97
[2020-10-11 23:46] VITALS: BP 154/92; PULSE 90; RESP 16; O2SAT 96
== END 2020-10-12 | disposition home or self-care (01) ==
PROVIDERS: Emergency Provider Physician Assistant; PCP Nurse Practitioner Family
DX: F41.9 Anxiety disorder, unspecified (principal); M54.16 Radiculopathy, lumbar region; F17.210 Nicotine dependence, cigarettes, uncomplicated
CPT/HCPCS: 96372; 99283; J2270

== ENCOUNTER 2020-10-24 21:37 | Emergency (ER) | payer MEDICAID, SELFPAY ==
[2020-10-24 22:01] VITALS: BP 149/89; PULSE 105; RESP 20; TEMP 36.8; O2SAT 99; BMI 36.1
[2020-10-24] MEDS: LORazepam 2 mg/mL INJ 1 mL IM (23:02)
[2020-10-24 23:09] VITALS: RESP 16
[2020-10-24] MEDS: morphine 4 mg/mL SDV 1 mL IM (23:09)
--- NOTE | 2020-10-24 23:16 | ED_ITS ---
HPI - Back Pain/Injury General: Chief Complaint: Back Pain/Injury Stated Complaint: back pain Time Seen by Provider: 10/24/20 22:34 Source: patient Mode of arrival: ambulatory Limitations: no limitations History of Present Illness: HPI Narrative: 35 yo female patient presents with back pain and sciatia. Pt states she has surgery scheduled for next week but needs something to help her with pain so she can sleep. Pt states this pain is ongoing is why she is having surgery. No new symptoms. Pt dnies fever, loss of bowel or bladder, numbness or tingling iv drug abuse hx of cancer or HTN. Pt states she also needs a work note to put her off work until saturday Associated symptoms: Deny abdominal pain, chills, change in bowel habits, difficulty walking, dysuria, fatigue, fever(s), hematuria, nausea, syncope, urinary urgency or vomiting Review of Systems Const: Denies: fever(s), chills, body aches, change in appetite, change in weight, fatigue, malaise or diaphoresis Eyes: Denies: change in vision, blurry vision, blind spots, photophobia, eye discomfort, eye discharge, eye redness, floaters or seeing flashes ENMT: Denies: throat pain, uvular edema, enlarged tonsils, odynophagia, hoarseness, mouth pain, swelling of lips/tongue, oral sores, bleeding gums, dental pain, dry mouth, ear or mastoid pain, ear discharge, change in hearing, tinnitus, disequilibrium, nasal discharge, nasal congestion, post nasal drip or sinus pain Card: Denies: chest pain, palpitations, irregular heart rhythm, edema, swelling of feet/ankles, lightheadedness, syncope, pre-syncope, dyspnea on exertion, orthopnea, leg pain with exertion or acrocyanosis Resp: Denies: dyspnea, productive cough, non-productive cough, wheezing, stridor, pain on inspiration, change in phlegm color, hemoptysis or chest congestion GI: Denies: abdominal pain, nausea, vomiting, hematemesis, dysphagia, diarrhea, constipation, GI cramping, change in bowel habits or rectal pain : Denies: flank pain, difficulty voiding, dysuria, urinary frequency, urinary urgency, urinary hesitancy or hematuria Musc: Denies: neck pain, extremity pain, extremity swelling, joint pain, joint swelling, joint redness, joint warmth or deformity Skin/Breast: Denies: rash, pruritus, erythema, sores, new lesions, changes in skin color or dry skin Neuro: Denies: headache(s), numbness in extremities, weakness in extremities, sensory changes, lack of coordination, difficulty walking, frequent falls, dizziness, vertigo, confusion, behavioral changes, Slurred speech present, difficulty communicating thoughts or seizure-like activity Psych: Denies: anxiety, depression, suicidal ideation or homicidal ideation Endo: Denies: polyuria, polydipsia, tired all the time, cold intolerance, excessive sweating, flushing, hot flashes or heat intolerance Immanuel/Lymph: Denies: easy bruising, easy bleeding, petechiae, purpura, enlarged lymph nodes or tender lymph nodes All/Imm: Denies: urticaria, throat swelling, tongue swelling, facial swelling, acute wheezing or itchy eyes PFSH ED PFSH: Medical History Breast mass, right Depression Paitet has history of depression and was seen in April 2019 and started on Lexapro 10mg. DANIEL (generalized anxiety disorder) PTSD (post-traumatic stress disorder) Surgical History History of appendectomy History of carpal tunnel release History of cholecystectomy History of hysterectomy Family History Other CAD (coronary artery disease) Cancer Diabetes Hypertension Stroke Denies family history of Anesthesia complication Bleeding disorder Social History Smoking and tobacco status: current every day smoker cigarettes Packs smoked per day: 0.5 Years cigarettes smoked: 22 Quit status (tobacco): considering quitting Second hand smoke exposure: No Alcohol intake: former Adopted: No Caregiver/support person: No Lives independently: Yes Household members: children Housing: Manufactured/Mobile home Marital status: Single Number of children: 2 Number of grandchildren: 0 Highest education level completed: Some College, No Degree service: No Current occupational status: employed 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 Current occupational exposures/hazards: Yes (covid 19) Pets and animals: Yes Pets & animals: cat(s) and dog(s) History of recent travel: No Leisure activites: art and music Sexually active: No Current gender identity: Female Luz/Confucianism: Voodoo Special luz needs: No Agree to transfusion: Yes Financial difficulty paying for basics: Not Very Hard Female Reproductive History: Para: 2 Spontaneous abortions: Yes Physical Exam Const: COMMON NORMALS: no acute distress, average body habitus, patient oriented x3, no limitations, healthy appearing, alert and well nourished HENMT: COMMON NORMALS: normocephalic and atraumatic HEAD & SCALP: normocephalic and atraumatic THROAT: no uvular edema Eye: COMMON NORMALS: Equal, round and reactive pupils present, EOMs intact bilaterally and conjunctivae normal CONJUNCTIVA: Yes conjunctivae normal PUPIL: Yes Equal, round and reactive pupils present Neck/C-Spine: COMMON NORMALS: full ROM, no lymphadenopathy and no meningeal signs GENERAL: Yes normal visual inspection, Yes trachea midline and No tender : COMMON NORMALS: Yes no CVA tenderness BLADDER/KIDNEY EXAM: Yes no CVA tenderness Back/Pelvis: COMMON NORMALS: no CVA tenderness, thoracic and lumbar spine normal to inspection, thoraco-lumbar ROM normal and straight leg raise negative bilaterally; negative for no thoracic nor lumbar tenderness THORACIC SPINE/UPPER BACK: Yes normal to inspection and Yes thoracic ROM normal LUMBAR SPINE/LOWER BACK: Yes normal to inspection, Yes ROM limited, Yes lumbar spinal tenderness and Yes paraspinal muscle tenderness Extremity: COMMON NORMALS: normal to inspection, full ROM, capillary refill normal, no joint enlargement, no clubbing, cyanosis or edema, no calf tenderness and no pedal edema Neuro: COMMON NORMALS: patient oriented x3 SENSORIUM/ORIENTATION: Yes alert MENINGEAL SIGNS: Yes no meningeal signs Psych: COMMON NORMALS: mental status grossly normal, Normal thought process present, cooperative, normal affect, speech normal, activity/motor behavior normal, denies hallucinations, denies homicidal ideation and denies suicidal ideation SPEECH: Yes normal speech THOUGHT PROCESS: Normal thought process present Skin: COMMON NORMALS: no rashes or lesions noted, no wounds, turgor normal, no jaundice, no petechiae and no mottling GENERAL SKIN EXAM: no rashes or lesions noted and turgor normal Course Vital Signs: Vital signs: Vital Signs Temperature 98.2 F 10/24/20 22:01 Pulse Rate 120 H 10/24/20 23:36 Respiratory Rate 18 10/24/20 23:36 Blood Pressure 138/83 10/24/20 23:36 Pulse Oximetry 96 10/24/20 23:36 MDM - Back Pain/Injury MDM Narrative: Medical decision making narrative: Pt is well appearing non toxic and in no acute distress.35 yo female patient presents with back pain and sciatic. Pt states she has surgery scheduled for next week but needs something to help her with pain so she can sleep. Pt states this pain is ongoing is why she is having surgery. No new symptoms. Pt denies fever, loss of bowel or bladder, numbness or tingling iv drug abuse hx of cancer or HTN. Pt states she also needs a work note to put her off work until saturday. Pt states she normally gets Morhone and Ativan to knock out pain. Pt was given morphine and ativan and had clinical improvement of pain. Pt is requesting to go home at this time. Discharge Plan Discharge Patient Disposition: Home Clinical Impression: Lumbar radiculopathy Condition: Stable Prescriptions: No Action fluoxetine 40 mg capsule 80 mg PO DAILY 30 Days Qty: 60 RF: 3 prednisone 20 mg tablet 20 mg PO DAILY Qty: 15 RF: 0 albuterol sulfate 90 mcg/actuation HFA aerosol inhaler 2 puff INHALATION Q6H PRN (Reason: shortness of breath or wheezing) Qty: 6.7 RF: 1 levocetirizine [Xyzal] 5 mg tablet 5 mg PO DAILY Qty: 30 RF: 2 methocarbamol 750 mg tablet 750 mg PO Q8H Qty: 20 RF: 0 Discharge Orders: Discharge ED (Routine); Ordered 10/24/20 Ordered By: Sienna Mari Referrals: EMMA Smith, SALES PROPERTY MANAGER [Primary Care Provider] - Discharge Diet: Advance as tolerated Discharge Activity: Increase activity as tolerated Patient Instructions: Back Pain (ED), Opioid Safety Activity Restrictions/Additional Instructions: Return to the Er if Return to the emergency department if: You have pain, numbness, or weakness in one or both legs. Your pain becomes so severe that you cannot walk. You cannot control your urine or bowel movements. You have severe back pain with chest pain. You have severe back pain, nausea, and vomiting. You have severe back pain that spreads to your side or genital area. Stand Alone Forms: Work/School Release Coding Level of Care Code ED Education Instructor for Danae Bowling
[2020-10-24 23:36] VITALS: BP 138/83; PULSE 120; RESP 18; O2SAT 96
== END 2020-10-24 23:37 | disposition home or self-care (01) ==
PROVIDERS: Emergency Provider Registered Nurse; PCP Nurse Practitioner Family
DX: M54.16 Radiculopathy, lumbar region (principal); F17.210 Nicotine dependence, cigarettes, uncomplicated; F32.9 Major depressive disorder, single episode, unspecified
CPT/HCPCS: 96372; 99283; J2060; J2270

== ENCOUNTER 2020-10-28 10:01 | Outpatient (CLI) | payer MEDICAID, SELFPAY ==
--- NOTE | 2020-10-28 10:09 | MR_ITS ---
WS: [id number] MRI LUMBAR SPINE NONCONTRAST HISTORY: SPINAL STENOSIS, LUMBAR REGION COMPARISON: 05/05/2012. TECHNIQUE: Sagittal and axial multisequence imaging is submitted. Normal lumbar alignment with no compression fractures or marrow edema. Disc spaces and vertebral body heights are well-preserved. Conus terminates normally at T12. L1-L2: Normal. L2-L3: Normal. L3-L4: Mild ligamentum flavum hypertrophy. No stenosis. L4-L5: Very tiny central disc protrusion and facet arthritis. Mild narrowing of the LEFT subarticular recess. L5-S1: Normal. Paravertebral soft tissues are normal. MR/MR lumbar spine wo con* [id number] IMPRESSION: 1. No significant central or foraminal stenosis. 2. No fracture. 3. Central disc protrusion at L4-5 and facet arthritis causing mild narrowing of the LEFT subarticular recess.
== END 2020-10-28 10:02 | disposition home or self-care (01) ==
LOC: RADWPI 10:04
PROVIDERS: PCP Nurse Practitioner Family; Visit Provider Orthopaedic Surgery
DX: M48.061 Spinal stenosis, lumbar region without neurogenic claudication (principal); M51.26 Other intervertebral disc displacement, lumbar region; M47.816 Spondylosis without myelopathy or radiculopathy, lumbar region
CPT/HCPCS: 72148

== ENCOUNTER → 2020-11-07 15:45 | Outpatient (BNVA) | payer MEDICAID, SELFPAY | PROVIDERS: PCP Nurse Practitioner Family; Visit Provider Orthopaedic Surgery | DX: Z01.812 Encounter for preprocedural laboratory examination (principal); Z20.822 Contact with and (suspected) exposure to COVID-19 | CPT/HCPCS: 87635 ==

== ENCOUNTER 2020-11-08 15:23 | Emergency (ER) | payer MEDICAID, SELFPAY ==
[2020-11-08 16:28] VITALS: BP 135/89; PULSE 104; RESP 18; TEMP 36.8; O2SAT 96; BMI 34.7
--- NOTE | 2020-11-08 16:38 | ED_ITS ---
HPI - Back Pain/Injury General: Chief Complaint: Back Pain/Injury Stated Complaint: LOWER BACK PAIN Time Seen by Provider: 11/08/20 16:28 History of Present Illness: HPI Narrative: Patient is a 35-year-old female comes to the ED with lower back pain. Patient has been dealing with this back pain for over a month now and has a scheduled appointment with Dr. Cunningham on Saturday to have a procedure done on his lumbar spine. She rates her current low back pain an 8 out of 10. She says the pain radiates down to the right leg. She also had presurgical screening Covid test done and it came back positive. Patient says she is asymptomatic and has no Covid-like symptoms. Denies any trouble breathing, cough or fever. Denies any bladder or bowel incontinence, pelvic anesthesia or weakness to lower extremities Associated symptoms: Deny abdominal pain, chills, dysuria, fatigue, fever(s), hematuria, nausea or vomiting Review of Systems Const: Denies: fever(s), chills or fatigue Eyes: Denies: change in vision or eye discomfort ENMT: Denies: throat pain, odynophagia, nasal discharge or nasal congestion Card: Denies: chest pain, palpitations, edema, swelling of feet/ankles, dyspnea on exertion or orthopnea Resp: Denies: dyspnea, productive cough or non-productive cough GI: Denies: abdominal pain, nausea, vomiting, diarrhea, constipation or hematochezia : Denies: flank pain, dysuria or hematuria Musc: Reports: back pain; Denies: neck pain or extremity swelling Skin/Breast: Denies: rash or new lesions Neuro: Denies: headache(s), numbness in extremities or weakness in extremities PFSH ED PFSH: Medical History Breast mass, right Depression Yung has history of depression and was seen in April 2019 and started on Lexapro 10mg. DANIEL (generalized anxiety disorder) PTSD (post-traumatic stress disorder) Surgical History History of appendectomy History of carpal tunnel release History of cholecystectomy History of hysterectomy Family History Other CAD (coronary artery disease) Cancer Diabetes Hypertension Stroke Denies family history of Anesthesia complication Bleeding disorder Social History Smoking and tobacco status: current every day smoker cigarettes Packs smoked per day: 0.5 Years cigarettes smoked: 22 Quit status (tobacco): considering quitting Second hand smoke exposure: No Alcohol intake: former Adopted: No Caregiver/support person: No Lives independently: Yes Household members: children Housing: Manufactured/Mobile home Marital status: Single Number of children: 2 Number of grandchildren: 0 Highest education level completed: Some College, No Degree service: No Current occupational status: employed 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 [employer] Current occupational exposures/hazards: Yes (covid 19) Pets and animals: Yes Pets & animals: cat(s) and dog(s) History of recent travel: No Leisure activites: art and music Sexually active: No Current gender identity: Female Luz/Faith: Temple Special luz needs: No Agree to transfusion: Yes Financial difficulty paying for basics: Not Very Hard Female Reproductive History: Para: 2 Spontaneous abortions: Yes Physical Exam Const: COMMON NORMALS: no acute distress, patient oriented x3 and alert GENERAL APPEARANCE: cooperative and comfortable HENMT: COMMON NORMALS: normocephalic HEAD & SCALP: normocephalic MOUTH: Normal oral and palatal mucosa present THROAT: posterior oropharynx normal and uvula midline Neck/C-Spine: COMMON NORMALS: supple GENERAL: Yes normal visual inspection Resp: COMMON NORMALS: normal respiratory effort, No retractions, No use of accessory muscles and clear to auscultation bilaterally AUSCULTATION: clear to auscultation bilaterally Cardio: COMMON NORMALS: regular rate, regular rhythm, S1 normal heart sound present, S2 normal heart sound present, No gallops present (Cardio), No clicks present (Cardio), No murmurs present (Cardio) and Peripheral pulses 2+ throughout RATE: regular rate RHYTHM: regular rhythm HEART SOUNDS: S1 normal heart sound present and S2 normal heart sound present PERIPHERAL PULSES: Peripheral pulses 2+ throughout GI: COMMON NORMALS: Normal to inspection, nondistended, normoactive bowel sounds present, Soft to palpation, non-tender and no masses PALPATION: Yes Soft to palpation : COMMON NORMALS: Yes no CVA tenderness BLADDER/KIDNEY EXAM: Yes no CVA tenderness Back/Pelvis: COMMON NORMALS: no CVA tenderness LUMBAR SPINE/LOWER BACK: Yes pain with ROM and Yes paraspinal muscle tenderness Lumbar paraspinal muscle tenderness: bilateral Bilateral lumbar paraspinal muscle tenderness: L4 and L5 Extremity: COMMON NORMALS: normal to inspection Neuro: COMMON NORMALS: patient oriented x3 and moves all extremities SENSORIUM/ORIENTATION: Yes alert Skin: GENERAL SKIN EXAM: dry skin Course Vital Signs: Vital signs: Vital Signs Temperature 98.2 F 11/08/20 17:04 Pulse Rate 104 H 11/08/20 17:04 Respiratory Rate 16 11/08/20 17:04 Blood Pressure 135/89 11/08/20 17:04 Pulse Oximetry 96 11/08/20 17:04 MDM - Back Pain/Injury MDM Narrative: Medical decision making narrative: Patient is a 35-year-old female comes to the ED with lower back pain that radiates down into right leg. Patient has an appointment set up with Dr. Cunningham the orthospine surgeon this Saturday for a lumbar spine procedure. Today she is having worsening lower back pain that is radiating down into her right leg. Denies any cauda equina symptoms. Patient did test positive for COVID-19 during her surgical prescreening test that was done yesterday. Patient has no COVID-19 symptoms currently. Patient's vitals are stable. Patient appears nontoxic and in no acute distress. Lungs are clear to auscultation bilaterally and she has some lumbar paraspinal muscle tenderness bilaterally. Patient was given a dose of hydrocodone while here in the ED and discharged home with a prescription for prednisone to help with lumbar radiculopathy. She has muscle relaxers at home and I told her to take [id number] Tylenol or ibuprofen for pain. Return to ED with cautions given. Follow-up with Dr. Cunningham at your appointment this Saturday. Patient understood agree with plan. Discharge Plan Discharge Patient Disposition: Home Clinical Impression: Lumbar radiculopathy Condition: Stable Prescriptions: New prednisone 20 mg tablet 20 mg PO TID 5 Days Qty: 15 RF: 0 No Action fluoxetine 40 mg capsule 80 mg PO DAILY 30 Days Qty: 60 RF: 3 prednisone 20 mg tablet 20 mg PO DAILY Qty: 15 RF: 0 albuterol sulfate 90 mcg/actuation HFA aerosol inhaler 2 puff INHALATION Q6H PRN (Reason: shortness of breath or wheezing) Qty: 6.7 RF: 1 levocetirizine [Xyzal] 5 mg tablet 5 mg PO DAILY Qty: 30 RF: 2 methocarbamol 750 mg tablet 750 mg PO Q8H Qty: 20 RF: 0 Discharge Orders: Discharge ED (Routine); Ordered 11/08/20 Ordered By: Marv Abbott Referrals: EMMA Smith, [employer] COORDINATOR [Primary Care Provider] - Discharge Diet: Regular Discharge Activity: Increase activity as tolerated Patient Instructions: Lumbar Radiculopathy (ED) Activity Restrictions/Additional Instructions: Follow-up with medical provider as directed. Take medications as prescribed. Return to the ER or your medical provider if condition worsens. Please read and understand discharge instructions. Thank you for choosing [facility] for your healthcare needs today. Please realize this is an emergency room and that we are providing you with a medical screening exam and this may not be complete and all inclusive of all the testing and or work up that you may need to determine your ailment or severity of your illness. It is very important that you follow up as instructed or that you return to the Emergency Department should you have concerns or if your condition changes or worsens in any way. Coding Level of Care Code ED Outside Sales Representative Insurance for Danae Fwd Exam Comprehensive
[2020-11-08 17:04] VITALS: BP 135/89; PULSE 104; RESP 16; TEMP 36.8; O2SAT 96
[2020-11-08] MEDS: HYDROcodone-acetaminophen 7.5-325 mg Tablet 1 TAB PO (17:04)
== END 2020-11-08 17:06 | disposition home or self-care (01) ==
PROVIDERS: Emergency Provider Physician Assistant; PCP Nurse Practitioner Family
DX: M54.16 Radiculopathy, lumbar region (principal); F17.210 Nicotine dependence, cigarettes, uncomplicated
CPT/HCPCS: 99282

== ENCOUNTER 2020-12-02 06:02 | Day surgery (SDC) | payer MEDICAID, SELFPAY ==
[2020-12-01 12:50] VITALS: BMI 36.9
[2020-12-02] VITALS (9 sets, daily range): BP systolic 101–134; BP diastolic 57–91; PULSE 99–115; RESP 16–24; TEMP 36.2–36.8; O2SAT 94–100
--- NOTE | 2020-12-02 | SCC_ITS ---
Procedure Done: bilateral L4/5 laminectomy with partial facetectomy 7.7 seconds of fluoroscopic guidance, for a cumulative dose of 3.58 mGy, was provided to Dr. Cunningham by the radiology department. C-arm images of the lumbar spine were saved for the patient's permanent record. [facility]
--- NOTE | 2020-12-02 | XR_ITS ---
WS: [id number] Lumbar spine, C-arm fluoroscopy views, 12/02/2020 Clinical Data: decompression Comparison: Lumbar spine, 10/11/2020. Findings: Dr. Cunningham performed a lumbar decompression at L4-L5. XR/XR lumbar spine 1V [id number] Impression: L4-L5 lumbar decompression.
[2020-12-02] MEDS: sodium chloride 0.9% 1,000 ML 30 ML IV (06:22)
--- NOTE | 2020-12-02 06:27 | ANES.PREANE2 ---
Pre-Anesthetic Assessment Pre-Anesthetic Assessment: Height/Weight: Height 1.75 m Weight 113.398 kg Preop Diagnosis: lumbar stenosis Proposed Procedure: Operation Date: 12/02/20 07:00 Proposed Procedures p Lumbar Spine Decompression L4/5 29906 M48.062(Not Applicable) - Elvis Cunningham DO Familial anesthetic complications: None Was Beta Obinna taken within 24 hours: N/A Was Clonidine taken within 24 hours: N/A Last intake: Intake Last Liquid Date 12/01/20 Last Liquid Time 22:30 Last Solid Date 12/01/20 Last Solid Time 22:30 Social: Social History: Tobacco and No alcohol Exam: Pre-Anes Outpt Exam: alert, oriented x 3 and regular rate & rhythm Additional Exam Findings (including area of procedure): Coarse breath sounds R > L Airway: Cervical ROM: WNL MP: 1 Dentition: False Pulmonary: Pulmonary: Asthma (prn inhaler 1 - 2x weekly) Metabolic: Metabolic: Morbid obesity Anesthetic Plan: ASA status: 2 Anesthesia: General Risk of > 500 ml blood loss (7ml/kg in children): No PFSH Anesthesia PFSH: Medical History Breast mass, right Depression [place]ark has history of depression and was seen in April 2019 and started on Lexapro 10mg. DANIEL (generalized anxiety disorder) PTSD (post-traumatic stress disorder) Surgical History History of appendectomy History of carpal tunnel release History of cholecystectomy History of hysterectomy Family History Other CAD (coronary artery disease) Cancer Diabetes Hypertension Stroke Denies family history of Anesthesia complication Bleeding disorder Social History Smoking and tobacco status: current every day smoker cigarettes Packs smoked per day: 0.5 Years cigarettes smoked: 22 Quit status (tobacco): considering quitting Second hand smoke exposure: No Alcohol intake: former Adopted: No Caregiver/support person: No Lives independently: Yes Household members: children Housing: Manufactured/Mobile home Marital status: Single Number of children: 2 Number of grandchildren: 0 Highest education level completed: Some College, No Degree service: No Current occupational status: employed 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
--- NOTE | 2020-12-02 06:48 | W.PM.OPSUD ---
Surgery/Procedure H&P Update DATE OF PROCEDURE: December 02, 2020 DATE H&P PERFORMED: 11/01/20 H&P UPDATE INFORMATION: I have reviewed H&P completed within last 30 days, I have examined patient prior to procedure and No changes to prior documentation PREOP DIAGNOSIS: lumbar stenosis PLANNED PROCEDURE: Operation Date: 12/02/20 07:00 Proposed Procedures p Lumbar Spine Decompression L4/5 74337 M48.062(Not Applicable) - Elvis Cunningham DO
[2020-12-02] MEDS: clindamycin 900 MG/50 ML PREMIX 100 MG IV (07:17)
--- NOTE | 2020-12-02 08:44 | SUR.PHASEI ---
0840 PATIENT TO PACU FROM OR AT THIS TIME. RR EVEN AND UNLABORED. SPO2 100% ON MASK AT 10L.
--- NOTE | 2020-12-02 09:01 | P.OP_ITS ---
Operative Report Date of procedure: December 02, 2020 Pre-op Diagnosis: lumbar stenosis Post-op diagnosis: same Procedure Done: bilateral L4/5 laminectomy with partial facetectomy Surgeon: Elvis Cunningham Anesthesia: General Estimated blood loss (mL): 5 Condition: stable Disposition: PACU Procedure: bilateral L4/5 laminectomy with partial facetectomy Patient is brought to the operative suite. After undergoing anesthesia they are placed in the supine position. All areas of impingement are well padded. Patient is then prepped and draped in the normal sterile fashion. A skin incision is made over the L4/5 level. This is confirmed under c-arm guidance. A series of dilators are passed and the tubular retractor is docked on the L4 lamina. A bovie is used to clear the soft tissue off the lamina and the L 4/5 facet joint. A high speed alexandr is then used to perform the l aminectomy and take down the medial aspect of the L 4/5 facet joint. A kerrison rongeure was then used to take down the remaining lamina and smooth the edged of the laminectomy up to the point where the ligamentum flavum attaches. Attention was then brought to the medial aspect of the facet joint. The remaining medial aspect of the superior and inferior aspect of the facet joint were taken down with the kerrison from the pedicle of L4 to L 5. The facet joint had significant hypertrophy. Attention was then brought to the Ligamentum Flavum. The ligament was taken down from the lamina of L4 to L5 and out medially to the remaining facet joint. The ligament was thick. The dura was then exposed. The dura was in good repair. The L4 nerve was then traced with a curette out the L4/5 foramen and found to be adequately decompressed. The L5 nerve was traced with a curette around the L5 pedicle. The lateral recess was opened with a kerrison helping to further decompress the L5 nerve. The tubular retractor was then tilted to the contralateral side. The bovie was used to take down the soft tissue on the spinous process. The high speed alexandr was used to take down the spinous process and then the contralateral lamina of L4. The kerrison rongeur was used to take down the remaining lamina to the point where the ligamentum flavum attached and the ligamentum flavum was taken down from L4 to L5. The kerrison rongeur was then used to reach across and take down the medial aspect of the contralateral L4/5 facet joint.The currete was used to trace the contralateral L4 nerve out the L4/5 foramen to make sure it was decompressed adequatesly and the L5 was traced around the L5 pedicle. The lateral recess was opened further with the kerrison to ensure the L5 is adequately decompressed. Wound is then irrigated copiously with saline and surgiflo is used to stop any bleeding. The tubular retractor is removed and the wound is closed with vicryl and monocryl suture. Glue is then used to protect the wound. A sterile dressing is then placed. Patient was then placed in the supine position and transferred to the PACU in stable condition.
--- NOTE | 2020-12-02 09:07 | SUR.PHASEI ---
0905 PATIENT TO OPS AT THIS TIME. RR EVEN AND UNLABORED.
[2020-12-02] MEDS: HYDROcodone-acetaminophen 5-325 mg Tablet 1 TAB PO (09:38)
--- NOTE | 2020-12-02 15:19 | ANE.PACU2 ---
Inpatient post-anesthesia follow up: Airway intact: Yes Vital signs: Temperature 97.2 F Pulse Rate 101 Respiratory Rate 18 Blood Pressure 132/91 Pulse Oximetry 95 Oxygen Delivery Me thod Room Air Oxygen Flow Rate 10 Fraction of Inspir ed Oxygen Hydration adequate: Yes Nausea and vomiting: No Pain level: 2 Mental status: Baseline
--- NOTE | 2020-12-06 07:21 | P.HP_ITS ---
Providers/Chief Complaint Primary Care Provider: SABRA Mack Chief Complaint: Lumbar Spine Decompression History of Present Illness Nicolasa Conklin is a 35 year old female This is an established 35 year old female here for evaluation of low back pain and to discuss her MRI results. Chief Complaint: low back pain Onset: 9 years Duration: years progressively worsening Characteristics: burning, sharp throbbing, Severity: / Location: low back Radiating symptoms: lateral and anterior bilateral thigh Aggravating factors: sitting or standing for long periods laying flat on back or trying to, stretching Alleviating factors: heat, Tylenol and ibuprofen with minimal relief Neuro deficits: denies numbness, tingling, weakness, incontinence of bowel/bladder, saddle anesthesia. Prior tx: physical therapy with increase pain, message, chiropractor will not treat patient. Review of Systems Narrative: Const: Denies: fever(s) or chills Card: Denies: chest pain or dyspnea on exertion Resp: Denies: dyspnea, productive cough or wheezing GI: Denies: abdominal pain, nausea or vomiting : Denies: difficulty voiding Musc: Reports: joint pain, joint swelling and limited range of motion Skin/Breast: Denies: changes in skin color or dry skin Neuro: Denies: numbness in extremities or weakness in extremities Psych: Denies: anxiety Immanuel/Lymph: Denies: easy bruising or easy bleeding Medications/Allergies Home Medications Medication Instructions Recorded Confirmed Last Taken Type albuterol sulfate 90 mcg/actuation 2 puff INHALATION Q6H PRN #6.7 g 08/22/20 12/01/20 Unknown Rx aerosol inhaler levocetirizine 5 mg tablet 5 mg PO DAILY #30 tab 08/22/20 12/02/20 12/01/20 Rx fluoxetine 40 mg capsule 80 mg PO DAILY 30 Days #60 cap 09/27/20 12/02/20 12/01/20 Rx lorazepam 1 mg tablet 1 mg PO DAILY PRN 30 Days #30 tab 11/16/20 12/02/20 0 12/01/20 Rx hydrocodone-acetaminophen 1 - 2 tab PO .Q4-6H #40 tab 12/02/20 Unknown Rx Allergies Allergy/AdvReac Type Severity Reaction Status Date / Time Penicillins Allergy Severe breathing Verified 11/08/20 15:48 problems azithromycin [From Zithromax] Allergy Mild diarrhea Verified 11/08/20 15:48 codeine Allergy ADR-Anxiety Verified 11/08/20 15:48 latex Allergy ALGY-Anaphy Verified 11/08/20 15:48 laxis ondansetron [From Zofran] Allergy ADR-Anxiety Verified 11/08/20 15:48 promethazine [From Phenergan] Allergy ADR-Anxiety Verified 11/08/20 15:48 tramadol Allergy ADR-Anxiety Verified 11/08/20 15:48 hydroxyzine AdvReac throwing up Verified 11/08/20 15:48 PFSH Acute PFSH: Medical History Breast mass, right Depression Yung has history of depression and was seen in April 2019 and started on Lexapro 10mg. DANIEL (generalized anxiety disorder) PTSD (post-traumatic stress disorder) Surgical History History of appendectomy History of carpal tunnel release History of cholecystectomy History of hysterectomy Family History Other CAD (coronary artery disease) Cancer Diabetes Hypertension Stroke Denies family history of Anesthesia complication Bleeding disorder Social History Smoking and tobacco status: current every day smoker cigarettes Packs smoked per day: 0.5 Years cigarettes smoked: 22 Quit status (tobacco): considering quitting Second hand smoke exposure: No Alcohol intake: former Adopted: No Caregiver/support person: No Lives independently: Yes Household members: children Housing: Manufactured/Mobile home Marital status: Single Number of children: 2 Number of grandchildren: 0 Highest education level completed: Some College, No Degree service: No Current occupational status: employed 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 Current occupational exposures/hazards: Yes (covid 19) Pets and animals: Yes Pets & animals: cat(s) and dog(s) History of recent travel: No Leisure activites: art and music Sexually active: No Current gender identity: Female Luz/Yarsanism: Confucianism Special luz needs: No Agree to transfusion: Yes Financial difficulty paying for basics: Not Very Hard Female Reproductive History: Para: 2 Spontaneous abortions: Yes Vitals/I&O/Wt Last Vital Signs Temp 97.2 F L 12/02/20 09:06 Pulse 101 H 12/02/20 09:19 Resp 18 12/02/20 09:19 BP 132/91 12/02/20 09:19 Pulse Ox 95 12/02/20 09:19 Physical Exam Narrative: EXAM NARRATIVE: EXAM NARRATIVE: CONSTITUTIONAL: The patient is normal appearing, well groomed, cooperative and in no apparent distress. GENERAL: Patient in no acute distress. Well nourished. CARDIAC: Regular rate and rhythm. CHEST: Normal inspirator effort, normal respiratory rate. ABDOMEN: Soft and non-tender. SKIN: Clear, warm and intact. NEURO?PSYCH: The patient is alert and oriented to person, place and time. NEUROVASCULAR: Upper Extremity Sensory - SILT. Motor Strength: Shoulder abduction C5: 5/5; Wrist extension C6: 5/5; Elbow extension C7: 5/5; Hand Naval Architect C8: 5/5; Finger abduction T1: 5/5. Radial/ Ulnar/ Median in intact Lower Extremity Sensory - SILT. Motor Strength: Hip flexion L2/3; Ant/inner thigh: 5/5; Hip adduction L2/3: 5/5; Knee extension L4 Lat thigh: 5/5; Toe dorsiflexion L5: 5/5; Ankle dorsiflexion L5/ S1: 5/5; Plantar flexion S1: 5/5. DTR: Triceps 2+; Brachioradialis 2+; Patellar 2+; Achilles 2+. MUSCULOSKELETAL: UPPER EXTREMITIES: The patient had full active ROM in fingers, wrist, elbow, and shoulder. The patient demonstrated ability to fully flex/extend/abduct/adduct fingers, make ok sign, cross 2nd/3rd digits, extend 1st digit fully.. Radial pulse 2+, CR<2 seconds. LOWER EXTREMITIES: Pt has full, active ROM of toes, ankle, knee, and hip. Dorsalis pedis & posterior tibialis pulses 2+, CR<2 seconds. SPINE: Skin warm, dry, intact. A&P Assessment and plan (1) Lumbar stenosis with neurogenic claudication: MIS decompresion Status: Acute Attestations Medical Necessity Statement*: failed conservative treatment Coding Level of Care Code Acute [facility] Diagnoses Lumbar stenosis with neurogenic claudication M48.062
== END 2020-12-02 09:55 | disposition home or self-care (01) ==
PROVIDERS: PCP Nurse Practitioner Family; Visit Provider Orthopaedic Surgery
PROC: (CPT 63005; principal; 2020-12-02 07:00)
DX: M48.062 Spinal stenosis, lumbar region with neurogenic claudication (principal); J45.909 Unspecified asthma, uncomplicated; E66.01 Morbid (severe) obesity due to excess calories; Z68.36 Body mass index [BMI] 36.0-36.9, adult; F17.210 Nicotine dependence, cigarettes, uncomplicated
CPT/HCPCS: 63047; 72020; 76000; J2250; J2405; J2704; J2710; J3010; J3490; J3535; J7030

== ENCOUNTER → 2020-12-15 15:50 | Outpatient (BNVA) | payer MEDICAID, SELFPAY | PROVIDERS: PCP Nurse Practitioner Family; Visit Provider Psychiatry & Neurology Psychiatry | DX: F43.10 Post-traumatic stress disorder, unspecified (principal); F33.1 Major depressive disorder, recurrent, moderate | CPT/HCPCS: 99214 ==

== ENCOUNTER 2020-12-26 18:12 | Emergency (ER) | payer MEDICAID, SELFPAY ==
--- NOTE | 2020-12-26 18:45 | XRR_ITS ---
PROCEDURE INFORMATION: Exam: XR Lumbosacral Spine Exam date and time: 12/26/2020 6:45 PM Age: 35 years old Clinical indication: Low back pain; Prior surgery; Surgery date: <1 month; Surgery type: Lumbar; Additional info: Fall TECHNIQUE: Imaging protocol: XR of the lumbosacral spine. Views: 2 or 3 views. COMPARISON: CT lumbar spine wo con* [id number] 03/20/2020 1:16 AM FINDINGS: Bones/joints: Normal. No acute fracture. Normal alignment. Soft tissues: Unremarkable. Intraperitoneal space: Cholecystectomy clips noted. XR/XR lumbar spine 2-3V* [id number] IMPRESSION: No acute findings.
[2020-12-26 20:10] VITALS: BP 132/85; PULSE 119; RESP 19; TEMP 36.9; O2SAT 94; BMI 34.8
--- NOTE | 2020-12-26 21:39 | ED_ITS ---
HPI - Back Pain/Injury General: Chief Complaint: Back Pain/Injury Stated Complaint: 3 wks post op/fall Time Seen by Provider: 12/26/20 21:31 History of Present Illness: HPI Narrative: 35-year-old female comes in today with complaints of low back pain. Patient recently had a laminectomy done about 3 weeks ago. Patient reports she was walking backwards and stepped on a fan causing her to strike the wall with her back. Patient denies falling. Patient reports that she has had increased back pain though since the incident. Incident occurred this afternoon. Review of Systems General: Reports: 10 or more systems reviewed and unremarkable except in HPI and below Musc: Reports: back pain PFSH ED PFSH: Medical History Breast mass, right Depression Yung has history of depression and was seen in April 2019 and started on Lexapro 10mg. DANIEL (generalized anxiety disorder) PTSD (post-traumatic stress disorder) Surgical History History of appendectomy History of carpal tunnel release History of cholecystectomy History of hysterectomy Family History Other CAD (coronary artery disease) Cancer Diabetes Hypertension Stroke Denies family history of Anesthesia complication Bleeding disorder Social History Smoking and tobacco status: current every day smoker cigarettes Packs smoked per day: 0.5 Years cigarettes smoked: 22 Quit status (tobacco): considering quitting Second hand smoke exposure: No Alcohol intake: former Adopted: No Caregiver/support person: No Lives independently: Yes Household members: children Housing: Manufactured/Mobile home Marital status: Single Number of children: 2 Number of grandchildren: 0 Highest education level completed: Some College, No Degree service: No Current occupational status: employed 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 Current occupational exposures/hazards: Yes (covid 19) Pets and animals: Yes Pets & animals: cat(s) and dog(s) History of recent travel: No Leisure activites: art and music Sexually active: No Current gender identity: Female Luz/Anabaptist: Christianity Special luz needs: No Agree to transfusion: Yes Financial difficulty paying for basics: Not Very Hard Female Reproductive History: Para: 2 Spontaneous abortions: Yes Physical Exam Const: COMMON NORMALS: no acute distress and patient oriented x3 GENERAL APPEARANCE: cooperative HENMT: COMMON NORMALS: normocephalic and Normal external nose present HEAD & SCALP: normal to inspection and normocephalic NOSE: Normal external nose present MOUTH: Normal oral and palatal mucosa present Eye: GENERAL EYE: appearance normal, both eyes and all related structures Neck/C-Spine: COMMON NORMALS: full ROM Chest: COMMONS NORMALS: normal inspection of the chest Resp: COMMON NORMALS: normal respiratory effort EFFORT & INSPECTION: Yes able to speak in complete sentences Cardio: COMMON NORMALS: regular rate and regular rhythm RATE: regular rate RHYTHM: regular rhythm GI: COMMON NORMALS: non-tender Back/Pelvis: OTHER: Soft tissue tenderness is noted in the right flank, well approximated wound site without any signs of redness. Extremity: COMMON NORMALS: normal to inspection Neuro: COMMON NORMALS: patient oriented x3 and moves all extremities Psych: COMMON NORMALS: mental status grossly normal and cooperative Skin: COMMON NORMALS: no rashes or lesions noted GENERAL SKIN EXAM: no rashes or lesions noted Course Vital Signs: Vital signs: Vital Signs Temperature 98.5 F 12/26/20 20:10 Pulse Rate 111 H 12/26/20 21:51 Respiratory Rate 16 12/26/20 21:51 Blood Pressure 104/68 12/26/20 21:51 Pulse Oximetry 98 12/26/20 21:51 MDM - Back Pain/Injury MDM Narrative: Medical decision making narrative: Patient comes in today for complaints of low back pain after tripping over a fan at home. Patient denies falling or landing on her buttocks or other significant injury. Patient had recently had a laminectomy done about 3 weeks ago. Patient reports increased back pain since the incident this afternoon. On exam patient has some muscle tenderness on palpation to the right flank area. No signs of significant injury or bruising is noted. Differential diagnosis includes but not limited to muscle strain, cervical wound adhesions, intervertebral disc disease, facet arthropathy. X-ray of the spine noted no significant abnormality or changes. Suspect patient probably has some muscle strain due to the incident causing her to twist abnormally. Recommended patient treat for pain and follow-up with primary care or her neurosurgeon for further evaluation and treatment as needed. Patient reported understanding. Discharge Plan Discharge Patient Disposition: Home Clinical Impression: Low back pain Qualifiers: Chronicity: acute Back pain laterality: unspecified Sciatica presence: without sciatica Qualified Code(s): M54.5 - Low back pain Condition: Stable Prescriptions: New hydrocodone-acetaminophen 5-325 mg tablet 1 tab PO Q8H PRN (Reason: pain) Qty: 7 RF: 0 No Action fluoxetine 40 mg capsule 80 mg PO DAILY 30 Days Qty: 60 RF: 3 lorazepam 0.5 mg tablet 0.5 mg PO DAILY PRN (Reason: anxiety) 30 Days Qty: 30 RF: 0 albuterol sulfate 90 mcg/actuation HFA aerosol inhaler 2 puff INHALATION Q6H PRN (Reason: shortness of breath or wheezing) Qty: 6.7 RF: 1 levocetirizine [Xyzal] 5 mg tablet 5 mg PO DAILY Qty: 30 RF: 2 prednisone 20 mg tablet 20 mg PO DAILY Qty: 15 RF: 0 hydrocodone-acetaminophen 5-325 mg tablet 1 - 2 tab PO .Q4-6H PRN (Reason: pain) 7 Days Qty: 40 RF: 0 Discharge Orders: Discharge ED (Routine); Ordered 12/26/20 Ordered By: Leonel Fabian Referrals: EMMA Smith, PHARMACIST IN CHARGE [Primary Care Provider] - Discharge Diet: Usual diet Discharge Activity: Increase activity as tolerated Patient Instructions: Back Pain (ED), Opioid Safety Activity Restrictions/Additional Instructions: Activity as tolerated. Use acetaminophen or ibuprofen to help with pain, unless otherwise instructed. Use hydrocodone for severe pain. Use ice in the area for further comfort. Follow-up with primary care for further instructions. Follow- up with Dr. Cunningham for other concerns. Return to the ER for new concerns. Coding Level of Care Code ED Skid [employer] Man for Danae Bowling
[2020-12-26] MEDS: HYDROcodone-acetaminophen 7.5-325 mg Tablet 1 TAB PO (21:44)
[2020-12-26 21:51] VITALS: BP 104/68; PULSE 111; RESP 16; O2SAT 98
== END 2020-12-26 21:52 | disposition home or self-care (01) ==
PROVIDERS: Emergency Provider Nurse Practitioner Family; PCP Nurse Practitioner Family
DX: M54.5 Low back pain (principal); F17.210 Nicotine dependence, cigarettes, uncomplicated
CPT/HCPCS: 72100; 99283

== ENCOUNTER 2021-01-27 12:53 | Emergency (ER) | payer MEDICAID, SELFPAY ==
[2021-01-27 13:00] VITALS: PULSE 94; TEMP 37.1; O2SAT 96; BMI 36.9
--- NOTE | 2021-01-27 13:09 | ED_ITS ---
HPI - Allergic Reaction General: Chief complaint: Animal Bite Stated complaint: ALLERGIC RXN Time Seen by Provider: 01/27/21 13:02 Source: patient Mode of arrival: EMS Limitations: no limitations History of Present Illness: HPI narrative: Patient is a nice 35-year-old female who presents to ED today following an insect sting to her right hand and subsequent EpiPen injection. Patient states she was stung to her right hand and states she has a previous reaction of anaphylaxis requiring intubation so she immediately ran to the closest gas station. She states the attendant at the gas station administered her EpiPen to her right thigh and called an ambulance. Patient upon arrival feels fine . She states she is only here because they made me go . complaint: allergic reaction Exposure: insect bite Associated symptoms: Reports no associated symptoms; Deny dizziness, nausea or vomiting Severity: mild Treatment prior to arrival: epinephrine Previous Allergic Reaction History: anaphylaxis and intubation Review of Systems Eyes: Denies: change in vision or blurry vision ENMT: Denies: throat pain, uvular edema, enlarged tonsils, odynophagia or swelling of lips/tongue Card: Denies: chest pain, palpitations, irregular heart rhythm or lightheadedness Resp: Denies: dyspnea GI: Denies: nausea or vomiting Skin/Breast: Reports: other (small sting to R lateral hand); Denies: rash Neuro: Denies: numbness in extremities, sensory changes or dizziness [facility] ED PFSH: Medical History Breast mass, right Depression Yung has history of depression and was seen in April 2019 and started on Lexapro 10mg. DANIEL (generalized anxiety disorder) PTSD (post-traumatic stress disorder) Surgical History History of appendectomy History of carpal tunnel release History of cholecystectomy History of hysterectomy Family History Other CAD (coronary artery disease) Cancer Diabetes Hypertension Stroke Denies family history of Anesthesia complication Bleeding disorder Social History Smoking and tobacco status: current every day smoker cigarettes Packs smoked per day: 0.5 Years cigarettes smoked: 22 Quit status (tobacco): considering quitting Second hand smoke exposure: No Alcohol intake: former Adopted: No Caregiver/support person: No Lives independently: Yes Household members: children Housing: Manufactured/Mobile home Marital status: Single Number of children: 2 Number of grandchildren: 0 Highest education level completed: Some College, No Degree service: No Current occupational status: employed 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 Current occupational exposures/hazards: Yes (covid 19) Pets and animals: Yes Pets & animals: cat(s) and dog(s) History of recent travel: No Leisure activites: art and music Sexually active: No Current gender identity: Female Luz/Christian: [employer] Special luz needs: No Agree to transfusion: Yes Financial difficulty paying for basics: Not Very Hard Female Reproductive History: Para: 2 Spontaneous abortions: Yes Physical Exam Const: COMMON NORMALS: no acute distress, patient oriented x3, no limitations and alert GENERAL APPEARANCE: cooperative ORIENTATION/CONSCIOUSNESS: Yes a wake, Yes oriented to person, Yes oriented to place and Yes oriented to time HENMT: COMMON NORMALS: normocephalic and atraumatic HEAD & SCALP: normal to inspection, normocephalic and atraumatic FACE & SINUS: normal facial exam; no edema MOUTH: Normal oral and palatal mucosa present, lip normal, tongue normal and other (no angioedema) THROAT: posterior oropharynx normal, tonsils normal and uvula midline; no uvular edema Neck/C-Spine: GENERAL: No anterior neck swelling and No submandibular swelling Resp: COMMON NORMALS: normal respiratory effort and clear to auscultation bilaterally AUSCULTATION: clear to auscultation bilaterally Cardio: COMMON NORMALS: regular rate and regular rhythm RATE: regular rate RHYTHM: regular rhythm Extremity: NARRATIVE EXTREMITY EXAM: small sting to R lateral hand with mild localized swelling Neuro: COMMON NORMALS: patient oriented x3 SENSORIUM/ORIENTATION: Yes alert, Yes oriented to person, Yes oriented to place and Yes oriented to time Course Vital Signs: Vital signs: Vital Signs Temperature 98.7 F 01/27/21 13:00 Pulse Rate 94 01/27/21 13:00 Pulse Oximetry 96 01/27/21 13:00 MDM - Allergic Reaction MDM Narrative: Medical decision making narrative: Recommended patient received Solu-Medrol, Pepcid, Benadryl but she refuses. Recommend observation in the ED following epinephrine injection again patient refuses. She states she feels fine and would like to go home. 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 Strict return to ED precautions given. Patient will sign AMA form. Discharge Plan Discharge Patient Disposition: Left Against Medical Advice Clinical Impression: Accidental insect sting Condition: Stable Prescriptions: No Action fluoxetine 40 mg capsule 80 mg PO DAILY 30 Days Qty: 60 RF: 3 albuterol sulfate 90 mcg/actuation HFA aerosol inhaler 2 puff INHALATION Q6H PRN (Reason: shortness of breath or wheezing) Qty: 6.7 RF: 1 levocetirizine [Xyzal] 5 mg tablet 5 mg PO DAILY Qty: 30 RF: 2 prednisone 20 mg tablet 20 mg PO DAILY Qty: 15 RF: 0 hydrocodone-acetaminophen 5-325 mg tablet 1 - 2 tab PO .Q4-6H PRN (Reason: pain) 7 Days Qty: 40 RF: 0 lorazepam 0.5 mg tablet 0.5 mg PO DAILY PRN (Reason: anxiety) 30 Days Qty: 30 RF: 0 hydrocodone-acetaminophen 5-325 mg tablet 1 tab PO Q8H PRN (Reason: pain) Qty: 7 RF: 0 Discharge Orders: Discharge ED (Routine); Ordered 01/27/21 Ordered By: Aiyana Garcia Referrals: EMMA Smith, SABRA [Primary Care Provider] - Patient Instructions: Epinephrine (Injection), Insect Bite or Sting (ED), An aphylaxis (ED) Activity Restrictions/Additional Instructions: As we discussed I recommended observation in the ED after epinephrine injection however you would like to go home at this time. As we discussed you need to return to the ED immediately for any shortness of breath or difficulty breathing, tongue or facial swelling, severe hives, nausea, palpitations, chest pain, dizziness, or any other concerns you may have. Coding Level of Care Code ED Marine Structural Designer for Danae Bowling
== END 2021-01-27 13:15 | disposition left against medical advice (07) ==
PROVIDERS: Emergency Provider Physician Assistant; PCP Nurse Practitioner Family
DX: T63.481A Toxic effect of venom of other arthropod, accidental (unintentional), initial encounter (principal); F17.210 Nicotine dependence, cigarettes, uncomplicated
CPT/HCPCS: 99281

== ENCOUNTER → 2021-02-23 15:14 | Outpatient (BNVA) | payer OTHER, MEDICAID, SELFPAY | PROVIDERS: PCP Nurse Practitioner Family; Visit Provider Psychiatry & Neurology Psychiatry | DX: F33.1 Major depressive disorder, recurrent, moderate (principal); F43.10 Post-traumatic stress disorder, unspecified | CPT/HCPCS: 99214 ==

== ENCOUNTER → 2021-04-04 13:41 | Outpatient (BNVA) | payer OTHER, MEDICAID, SELFPAY | PROVIDERS: PCP Nurse Practitioner Family; Visit Provider Orthopaedic Surgery | DX: M48.062 Spinal stenosis, lumbar region with neurogenic claudication (principal) | CPT/HCPCS: 72100 ==

== ENCOUNTER → 2021-04-25 14:51 | Outpatient (BNVA) | payer OTHER, SELFPAY | PROVIDERS: PCP Nurse Practitioner Family; Visit Provider Psychiatry & Neurology Psychiatry | DX: F33.1 Major depressive disorder, recurrent, moderate (principal); F43.12 Post-traumatic stress disorder, chronic | CPT/HCPCS: 99214 ==

== ENCOUNTER 2021-04-28 11:34 | Outpatient (CLI) | payer MEDICAID, SELFPAY ==
--- NOTE | 2021-04-28 11:45 | MR_ITS ---
WS: [id number] MRI LUMBAR SPINE NONCONTRAST TECHNIQUE: Sagittal T1, T2 and STIR imaging. Axial T1 and T2 imaging. CLINICAL INFORMATION: M48.062 - Spinal stenosis, lumbar region with neurogenic ... COMPARISON: MRI October 28, 2020 FINDINGS: Mild lumbar curve. No acute compression. No high-grade central canal stenosis. L1-L2: Normal. L2-L3: Normal. L3-L4: No significant disc bulging. Mild facet arthropathy. Spinal canal and foramen are patent. L4-L5: Postoperative changes laminectomy defects new compared to previous. No significant spinal kalli l or foraminal narrowing. Mild facet arthropathy. L5-S1: Susceptibility artifact within the right subarticular recess and epidural space with impingeme nt on the right L5 and right S1 nerve roots with indentation on the thecal sac. This is nonspecific b ut may represent a small amount of chronic blood products or calcified disc material. Spinal canal an d foramen are patent. Mild facet arthropathy. Visualized pelvic bony structures: Normal. Paravertebral soft tissues: Normal. MR/MR lumbar spine wo con* [id number] IMPRESSION: 1. Mild lumbar curve. No acute compression. No high-grade central canal stenos is. 2. Prior postoperative changes L4 laminectomy defects. Moderate facet arthropa thy. Spinal canal and foramen are patent. 3. Susceptibility artifact in the right subarticular recess and epidural space L5-S1 nonspecific but may represent chronic blood products or calcified disc m aterial. This impinges the traversing right L5 and S1 nerve roots. Correlation for right L5-S1 nerve root symptoms.
== END 2021-04-28 11:35 | disposition home or self-care (01) ==
LOC: RADSHAW 11:37
PROVIDERS: PCP Nurse Practitioner Family; Visit Provider Orthopaedic Surgery
DX: M48.062 Spinal stenosis, lumbar region with neurogenic claudication (principal)
CPT/HCPCS: 72148

== ENCOUNTER 2021-05-25 20:38 | Emergency (ER) | payer MEDICAID, SELFPAY ==
[2021-05-25 20:43] VITALS: BP 132/94; PULSE 90; RESP 15; TEMP 35.8; O2SAT 100; BMI 36.5
[2021-05-25 21:37] LABS: Add Urine Culture? Yes; Add Urine Microscopic? YES; Bacteria Urine 1+ /hpf; Bilirubin Urine Neg (Negative); Blood Urine 3+ (Negative); Glucose Urine UA Norm (Normal); Ketones Urine Negative (Negative); Leukocyte Esterase Urine Negative (Negative); Nitrate Urine Negative (Negative); Protein Urine Trace (Negative); RBC Urine 25-40 /hpf (0-2); Squamous Epithelial Cell Urine 0-4 /hpf (0-5); Urine Appearance Clear (CLEAR); Urine Color Yellow (Yellow); Urobilinogen Urine Norm (Negative); WBC Urine 55-80 /hpf (0-5); pH Urine 5 (5-7)
--- NOTE | 2021-05-25 22:20 | CTR_ITS ---
PROCEDURE INFORMATION: Exam: CT Abdomen And Pelvis Without Contrast Exam date and time: 05/25/2021 10:20 PM Age: 36 years old Clinical indication: Nausea and vomiting; Abdominal pain; Flank; Right; Prior surgery; Surgery type: Gb, hyst, appy; Additional info: Pain, hematuria TECHNIQUE: Imaging protocol: Computed tomography of the abdomen and pelvis without contrast. Radiation optimization: All CT scans at this facility use at least one of these dose optimization techniques: automated exposure control; mA and/or kV adjustment per patient size (includes targeted exams where dose is matched to clinical indication); or iterative reconstruction. COMPARISON: CT abdomen pelvis w con* [id number] 08/29/2018 11:36 PM RADIATION DOSE METRICS: Total DLP (mGy-cm): 1813.31 FINDINGS: Lungs: Lung bases are clear. Liver: The liver is normal. Gallbladder and bile ducts: The gallbladder is absent. There is no intrahepatic or extrahepatic bile duct dilation. Pancreas: The pancreas is unremarkable. Spleen: The spleen is unremarkable. Adrenal glands: The adrenal glands are unremarkable. Kidneys and ureters: The kidneys are unremarkable. No hydronephrosis or stones. No ureteral dilation. Stomach and bowel: The stomach is decompressed, preventing meaningful evaluation of wall thickness. The small bowel is nondilated. The colon is unremarkable. Appendix: The appendix is absent. Intraperitoneal space: There is no free air or significant intraperitoneal free fluid. Vasculature: The aorta is unremarkable. There is no aneurysm. Lymph nodes: There is no lymphadenopathy in the retroperitoneum, mesentery, pelvis or inguinal regions. Urinary bladder: The bladder is incompletely distended. The wall is mildly diffusely thickened and there is serosal surface edema. Reproductive: The uterus is absent. There is no adnexal mass or large cyst. Bones/joints: Bones are unremarkable. Soft tissues: The abdominal wall is intact. CT/CT kidney stone [id number] IMPRESSION: 1. No obstructive uropathy. No stones. 2. Suggestive findings of cystitis. Correlate with urinalysis.
--- NOTE | 2021-05-25 22:21 | ED_ITS ---
HPI - Female Genitourinary General: Chief complaint: Urogenital-Female Stated complaint: Possible Passing Kidney Stone Time Seen by Provider: 05/25/21 22:56 History of Present Illness: HPI Narrative: Patient is history of kidney stones. Patient states that she sure she has 1 now. Patient said fever she has had pain for the last 3 days she has passed some blood. Said pain radiates from right kidney to the down and her bladder area MD elicited complaint: other (Kidney stone) Pertinent past history: other (Kidney stone) Onset (ago): day(s) Severity: moderate Female Urogenital Radiation: R Flank Severity scale (1-10): 6 Quality of pain: cramping, dull and aching Consistency: constant and progressively worsening Vaginal discharge: none Vaginal bleeding: none Urinary symptoms: Flank Pain and Hematuria Associated symptoms: Reports fevers/chills; Deny abdominal pain, headache(s) or nausea Review of Systems Const: Reports: fever(s); Denies: chills or body aches Eyes: Denies: change in vision or blurry vision ENMT: Denies: throat pain or nasal congestion Card: Denies: chest pain or dyspnea on exertion Resp: Denies: dyspnea, productive cough or non-productive cough GI: Denies: abdominal pain, nausea or vomiting : Reports: flank pain and other (Hematuria) Musc: Denies: extremity pain Skin/Breast: Denies: rash Neuro: Denies: headache(s) Psych: Denies: anxiety or depression Immanuel/Lymph: Denies: easy bruising PFSH ED PFSH: Medical History Breast mass, right Depression Paitet has history of depression and was seen in April 2019 and started on Lexapro 10mg. DANIEL (generalized anxiety disorder) Psychiatric care PTSD (post-traumatic stress disorder) Surgical History History of appendectomy History of carpal tunnel release History of cholecystectomy History of hysterectomy Family History Other CAD (coronary artery disease) Cancer Diabetes Hypertension Stroke Denies family history of Anesthesia complication Bleeding disorder Social History Quit status (tobacco): considering quitting Second hand smoke exposure: No Alcohol intake: former Adopted: No Caregiver/support person: No Lives independently: Yes Household members: children Housing: Manufactured/Mobile home Marital status: Single Number of children: 2 Number of grandchildren: 0 Highest education level completed: Some College, No Degree service: No Current occupational status: employed 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 Current occupational exposures/hazards: Yes (covid 19) Pets and animals: Yes Pets & animals: cat(s) and dog(s) History of recent travel: No Leisure activites: art and music Sexually active: No Current gender identity: Female Luz/Religious: Voodoo Special luz needs: No Agree to transfusion: Yes Financial difficulty paying for basics: Not Very Hard Female Reproductive History: Para: 2 Spontaneous abortions: Yes Physical Exam Const: COMMON NORMALS: no acute distress, average body habitus and patient oriented x3 HENMT: COMMON NORMALS: normocephalic HEAD & SCALP: normal to inspection and normocephalic FACE & SINUS: normal facial exam Eye: COMMON NORMALS: conjunctivae normal GENERAL EYE: appearance normal, both eyes and all related structures CONJUNCTIVA: Yes conjunctivae normal Neck/C-Spine: COMMON NORMALS: no JVD Chest: COMMONS NORMALS: normal inspection of the chest Resp: COMMON NORMALS: normal respiratory effort and clear to auscultation bilaterally AUSCULTATION: clear to auscultation bilaterally Cardio: COMMON NORMALS: no JVD, regular rate and regular rhythm RATE: regular rate RHYTHM: regular rhythm GI: COMMON NORMALS: Normal to inspection, nondistended, normoactive bowel sounds present PALPATION: Yes Tenderness to palpation present (GI) Details: RLQ : BLADDER/KIDNEY EXAM: Yes CVA tenderness Back/Pelvis: GENERAL BACK: Yes CVA tenderness Extremity: COMMON NORMALS: normal to inspection and full ROM Neuro: COMMON NORMALS: patient oriented x3 Course Vital Signs: Vital signs: Vital Signs Temperature 96.5 F L 05/25/21 20:43 Pulse Rate 90 05/25/21 20:43 Respiratory Rate 15 05/25/21 20:43 Blood Pressure 126/78 05/25/21 23:02 Pulse Oximetry 100 05/25/21 20:43 MDM - Female MDM Narrative: Medical decision making narrative: Patient presents with UTI symptoms and says that she has a kidney stone. She has had this before and she is sure it is 1. CT was done did not show any stone. Did show cystitis. UA was consistent with infection. Patient's had no nausea or vomiting or fever. Patient was given antibiotics and pain medication instructed follow-up primary care provider recheck here in 7 to 10 days. Lab Data: Labs: Lab Results 05/25/21 05/25/21 21:23 21:23 HCG, Qual Negative (Negative) Urine Color Yellow (Yellow) Urine Appearance Clear (CLEAR) Urine pH 5 (5-7) Ur Specific Gravit y 1.020 (1.005-1.030) Urine Protein Trace (Negative) Urine Glucose (UA) Norm (Normal) Urine Ketones Negative (Negative) Urine Blood 3+ H (Negative) Urine Nitrate Negative (Negative) Urine Bilirubin Neg (Negative) Urine Urobilinogen Norm mg/dL mg/dL (Negative) Ur Leukocyte Carlene ase Negative (Negative) Urine RBC 25-40 /hpf H /hpf (0-2) Urine WBC 55-80 /hpf H /hpf (0-5) Ur Squamous Epith Cells 0-4 /hpf H /hpf (0-5) Amorphous Sediment Not Reportable Urine Bacteria 1+ /hpf H /hpf (NONE) Discharge Plan Discharge Patient Disposition: Home Clinical Impression: Cystitis Condition: Stable Prescriptions: New cephalexin 500 mg capsule 500 mg PO Q8H 7 Days Qty: 21 RF: 0 Celebrex 100 mg capsule 100 mg PO BID Qty: 20 RF: 0 No Action fluoxetine 40 mg capsule 80 mg PO DAILY 30 Days Qty: 60 RF: 3 lorazepam 0.5 mg tablet 0.5 mg PO DAILY PRN (Reason: anxiety) 30 Days Qty: 20 RF: 2 albuterol sulfate 90 mcg/actuation HFA aerosol inhaler 2 puff INHALATION Q6H PRN (Reason: shortness of breath or wheezing) Qty: 6.7 RF: 1 levocetirizine [Xyzal] 5 mg tablet 5 mg PO DAILY Qty: 30 RF: 2 Discharge Orders: Discharge ED (Routine); Ordered 05/25/21 Ordered By: Carlin Metzger Referrals: EMMA Smith, HAND HOSE CUTTER [Primary Care Provider] - Discharge Diet: Usual diet Discharge Activity: Increase activity as tolerated Patient Instructions: Urinary Tract Infection in Women (DC) Activity Restrictions/Additional Instructions: Follow-up with medical provider as directed. Take medications as prescribed. Return to the ER or your medical provider if condition worsens. Please read and understand discharge instructions. If any questions ask please. Stand Alone Forms: Work/School Release Coding Level of Care Code ED Window Unit Air Conditioning Mechanic for Danae Fwd Exam Comprehensive
[2021-05-25 22:28] LABS: HCG Qualitative Urine. Negative (Negative)
[2021-05-25 23:02] VITALS: BP 126/78
[2021-05-25] MEDS: CELEcoxib 200 mg Capsule 400 MG PO (23:19)
[2021-05-25] MEDS: cephALEXin 500 mg Capsule PO (23:19)
== END 2021-05-25 23:20 | disposition home or self-care (01) ==
PROVIDERS: Emergency Provider Nurse Practitioner Family; PCP Nurse Practitioner Family
DX: N30.90 Cystitis, unspecified without hematuria (principal)
CPT/HCPCS: 74176; 81001; 81025; 87077; 87086; 87186; 99283

== ENCOUNTER 2021-05-29 10:00 | Emergency (ER) | payer MEDICAID, SELFPAY ==
[2021-05-29 10:39] VITALS: BP 140/89; PULSE 103; RESP 16; TEMP 36.7; O2SAT 99; BMI 36.1
--- NOTE | 2021-05-29 11:29 | ED_ITS ---
HPI - Female Genitourinary General: Chief complaint: Urogenital-Female Stated complaint: KIDNEY STONE RELATED PAIN Time Seen by Provider: 05/29/21 10:53 History of Present Illness: HPI Narrative: Patient complains of having blood in the urine and hurting worse than when she was seen here the other day and diagnosed UTI. CT did not show any evidence of stones other day. MD elicited complaint: dysuria and UTI Onset (ago): day(s) Quality of pain: aching Vaginal bleeding: none Associated symptoms: Deny abdominal pain, headache(s) or nausea Review of Systems Const: Denies: fever(s), chills or body aches Eyes: Denies: change in vision or blurry vision ENMT: Denies: throat pain or nasal congestion Card: Denies: chest pain or dyspnea on exertion Resp: Denies: dyspnea, productive cough or non-productive cough GI: Denies: abdominal pain, nausea or vomiting : Reports: dysuria, urinary urgency and hematuria Musc: Denies: extremity pain Skin/Breast: Denies: rash Neuro: Denies: headache(s) Psych: Denies: anxiety or depression Immanuel/Lymph: Denies: easy bruising PFSH ED PFSH: Medical History Breast mass, right Depression Yung has history of depression and was seen in April 2019 and started on Lexapro 10mg. DANIEL (generalized anxiety disorder) Psychiatric care PTSD (post-traumatic stress disorder) Surgical History History of appendectomy History of carpal tunnel release History of cholecystectomy History of hysterectomy Family History Other CAD (coronary artery disease) Cancer Diabetes Hypertension Stroke Denies family history of Anesthesia complication Bleeding disorder Social History Quit status (tobacco): considering quitting Second hand smoke exposure: No Alcohol intake: former Adopted: No Caregiver/support person: No Lives independently: Yes Household members: children Housing: Manufactured/Mobile home Marital status: Single Number of children: 2 Number of grandchildren: 0 Highest education level completed: Some College, No Degree service: No Current occupational status: employed 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 Current occupational exposures/hazards: Yes (covid 19) Pets and animals: Yes Pets & animals: cat(s) and dog(s) History of recent travel: No Leisure activites: art and music Sexually active: No Current gender identity: Female Luz/Adventism: Zoroastrian Special luz needs: No Agree to transfusion: Yes Financial difficulty paying for basics: Not Very Hard Female Reproductive History: Para: 2 Spontaneous abortions: Yes Physical Exam Const: COMMON NORMALS: no acute distress, average body habitus and patient oriented x3 HENMT: COMMON NORMALS: normocephalic HEAD & SCALP: normal to inspection and normocephalic FACE & SINUS: normal facial exam Eye: COMMON NORMALS: conjunctivae normal GENERAL EYE: appearance normal, both eyes and all related structures CONJUNCTIVA: Yes conjunctivae normal Neck/C-Spine: COMMON NORMALS: no JVD Chest: COMMONS NORMALS: normal inspection of the chest Resp: COMMON NORMALS: normal respiratory effort Cardio: COMMON NORMALS: no JVD and regular rate RATE: regular rate GI: INSPECTION: Yes normal to inspection Extremity: COMMON NORMALS: normal to inspection and full ROM Neuro: COMMON NORMALS: patient oriented x3 Course Vital Signs: Vital signs: Vital Signs Temperature 98.3 F 05/29/21 12:23 Pulse Rate 89 05/29/21 12:23 Respiratory Rate 16 05/29/21 12:23 Blood Pressure 126/79 05/29/21 12:23 Pulse Oximetry 99 05/29/21 12:23 MDM - Female MDM Narrative: Medical decision making narrative: Patient presents with ongoing hematuria. I saw her couple days ago CT of the abdomen was negative did show cystitis. UA supported that. UA appears to have an ongoing infection has not responded to Keflex. Patient's antibiotic changed to Bactrim was put on Pyridium encouraged follow-up with her primary care provider return here. Patient has been afebrile during this time. Lab Data: Labs: Lab Results 05/29/21 10:10 Urine Color Dark yellow (Yellow) Urine Appearance Cloudy (CLEAR) Urine pH 6 (5-7) Ur Specific Gravit y 1.020 (1.005-1.030) Urine Protein 3+ H (Negative) Urine Glucose (UA) Norm (Normal) Urine Ketones Negative (Negative) Urine Blood 3+ H (Negative) Urine Nitrate Negative (Negative) Urine Bilirubin Neg (Negative) Urine Urobilinogen Norm mg/dL mg/dL (Negative) Ur Leukocyte Carlene ase 2+ H (Negative) Urine RBC 40-50 /hpf H /hpf (0-2) Urine WBC Too numerous to c nt /hpf H /hpf (0-5) Ur Squamous Epith Cells None /hpf /hpf (0-5) Amorphous Sediment Not Reportable Urine Bacteria 3+ /hpf H /hpf (NONE) Discharge Plan Discharge Patient Disposition: Home Clinical Impression: Cystitis Condition: Stable Prescriptions: New Bactrim DS 800-160 mg tablet 1 tab PO BID 7 Days Qty: 14 RF: 0 Pyridium 200 mg tablet 200 mg PO Q8H PRN (Reason: pain) Qty: 6 RF: 0 Discontinued cephalexin 500 mg capsule 500 mg PO Q8H 7 Days Qty: 21 RF: 0 No Action fluoxetine 40 mg capsule 80 mg PO DAILY 30 Days Qty: 60 RF: 3 lorazepam 0.5 mg tablet 0.5 mg PO DAILY PRN (Reason: anxiety) 30 Days Qty: 20 RF: 2 albuterol sulfate 90 mcg/actuation HFA aerosol inhaler 2 puff INHALATION Q6H PRN (Reason: shortness of breath or wheezing) Qty: 6.7 RF: 1 levocetirizine [Xyzal] 5 mg tablet 5 mg PO DAILY Qty: 30 RF: 2 Celebrex 100 mg capsule 100 mg PO BID Qty: 20 RF: 0 Discharge Orders: Discharge ED (Routine); Ordered 05/29/21 Ordered By: Carlin Metzger Referrals: EMMA Smith, MANAGER WIND [Primary Care Provider] - Discharge Diet: Usual diet Discharge Activity: Increase activity as tolerated Patient Instructions: Urinary Tract Infection in Women (ED) Activity Restrictions/Additional Instructions: Follow-up with medical provider as directed. Take medications as prescribed. Return to the ER or your medical provider if condition worsens. Please read and understand discharge instructions. If any questions ask please. Stand Alone Forms: Work/School Release Coding Level of Care Code ED Master Fire Control Technician for Danae Fwd Exam Comprehensive
[2021-05-29 11:40] LABS: Glucose Urine UA Norm (Normal); Protein Urine 3+ (Negative); Urine Appearance Cloudy (CLEAR); Urine Color Dark Yellow (Yellow); pH Urine 6 (5-7)
[2021-05-29 11:41] LABS: Add Urine Culture? Yes; Add Urine Microscopic? YES; Bacteria Urine 3+ /hpf; Bilirubin Urine Neg (Negative); Blood Urine 3+ (Negative); Ketones Urine Negative (Negative); Leukocyte Esterase Urine 2+ (Negative); Nitrate Urine Negative (Negative); RBC Urine 40-50 /hpf (0-2); Urobilinogen Urine Norm (Negative); WBC Urine TOO NUMEROUS TO CNT /hpf (0-5)
[2021-05-29] MEDS: HYDROcodone-acetaminophen 7.5-325 mg Tablet 1 TAB PO (12:02)
[2021-05-29] MEDS: ketorolac 60 mg/2 mL INJ IM (12:03)
[2021-05-29 12:23] VITALS: BP 126/79; PULSE 89; RESP 16; TEMP 36.8; O2SAT 99
[2021-05-29] MEDS: sulfamethoxazole-trimeth DS 160-800 mg Tablet 1 TAB PO (12:31)
== END 2021-05-29 12:40 | disposition home or self-care (01) ==
PROVIDERS: Emergency Provider Nurse Practitioner Family; PCP Nurse Practitioner Family
DX: N30.90 Cystitis, unspecified without hematuria (principal)
CPT/HCPCS: 81001; 87077; 87086; 87186; 96372; 99283; 99291; J1885

== ENCOUNTER → 2021-05-30 00:01 | Outpatient (BNVA) | payer MEDICAID, SELFPAY | PROVIDERS: PCP Nurse Practitioner Family; Visit Provider Orthopaedic Surgery | DX: M48.062 Spinal stenosis, lumbar region with neurogenic claudication (principal) | CPT/HCPCS: 87635 ==

== ENCOUNTER 2021-06-05 06:10 | Day surgery (SDC) | payer MEDICAID, SELFPAY ==
[2021-06-01 11:06] VITALS: BMI 36.1
[2021-06-05] VITALS (15 sets, daily range): BP systolic 117–148; BP diastolic 79–99; PULSE 78–102; RESP 0–20; TEMP 36.1–36.3; O2SAT 92–100
--- NOTE | 2021-06-05 | XR_ITS ---
WS: [id number] XR lumbar spine 1V [id number] REASON FOR EXAM: lumbar decompression FINDINGS: Surgical instrument initially overlying the left L4-L5 disc space with a second image demonstrating t he surgical instrument overlying the right L5-S1 disc space. XR/XR lumbar spine 1V [id number] IMPRESSION: Intraoperative lumbar spine localization as above.
--- NOTE | 2021-06-05 | SCC_ITS ---
Procedure Done: 1. RightL5/S1 laminectomy with partial facetectomy 8.9 seconds of fluoroscopic guidance, for a cumulative dose of 4.83 mGy, was provided to Dr. Cunningham by the radiology department. C-arm images of the lumbar spine were saved for the patient's permanent record. [facility]
[2021-06-05] MEDS: sodium chloride 0.9% 1,000 ML 30 ML IV (06:37)
--- NOTE | 2021-06-05 06:52 | W.PM.OPSUD ---
Surgery/Procedure H&P Update DATE OF PROCEDURE: June 05, 2021 DATE H&P PERFORMED: 05/09/21 H&P UPDATE INFORMATION: I have reviewed H&P completed within last 30 days, I have examined patient prior to procedure and No changes to prior documentation PREOP DIAGNOSIS: Lumbar stenosis with neurogenic claudication PLANNED PROCEDURE: Operation Date: 06/05/21 07:00 Proposed Procedures p Lumbar Spine Decompression L5/S1 95068 M48.062(Not Applicable) - Elvis Cunningham DO
--- NOTE | 2021-06-05 06:54 | P.ANESASSM_ITS ---
Pre-Anesthetic Assessment Pre-Anesthetic Assessment: Height/Weight: Height 1.75 m Weight 111.13 kg Temp Pulse Resp BP Pulse Ox 97.0 F L 95 18 144/79 98 06/05/21 06:43 06/05/21 06:43 06/05/21 06:43 06/05/21 06:43 06/05/21 06:43 Preop Diagnosis: Lumbar stenosis with neurogenic claudication Proposed Procedure: Operation Date: 06/05/21 07:00 Proposed Procedures p Lumbar Spine Decompression L5/S1 61708 M48.062(Not Applicable) - Elvis Cunningham DO Familial anesthetic complications: None Was Beta Obinna taken within 24 hours: N/A Was Clonidine taken within 24 hours: N/A Last intake: Intake Last Liquid Date 06/04/21 Last Liquid Time 21:45 Last Solid Date 06/04/21 Last Solid Time :45 Social: Social History: Tobacco and No alcohol Exam: Pre-Anes Outpt Exam: alert, oriented x 3, clear to auscultation bilaterally and regular rate & rhythm Airway: Cervical ROM: WNL MP: 1 Dentition: False Pulmonary: Pulmonary: Asthma Metabolic: Metabolic: Morbid obesity Neuropsych: Neuropsych: Anxiety Comments: does not wish to be strapped down before induction of anesthsia Anesthetic Plan: ASA status: 2 Anesthesia: General Risk of > 500 ml blood loss (7ml/kg in children): No Meds/Allergies Current Medications: Current Medications Generic Name Dose Route Start Last Admin Trade Name Freq PRN Reason Stop Dose Admin Sodium Chloride 1,000 mls @ 30 ml s/hr 06/05/21 06:15 06/05/21 06:37 Sodium Chloride 0.9% IV 06/06/21 06:14 30 mls/hr .Q24H CHAZ Administration PFSH Anesthesia PFSH: Medical History Breast mass, right Depression Paitet has history of depression and was seen in April 2019 and started on Lexapro 10mg. DANIEL (generalized anxiety disorder) Psychiatric care PTSD (post-traumatic stress disorder) Surgical History History of appendectomy History of carpal tunnel release History of cholecystectomy History of hysterectomy Family History Other CAD (coronary artery disease) Cancer Diabetes Hypertension Stroke Denies family history of Anesthesia complication Bleeding disorder Social History Quit status (tobacco): considering quitting Second hand smoke exposure: No Alcohol intake: former Adopted: No Caregiver/support person: No Lives independently: Yes Household members: children Housing: Manufactured/Mobile home Marital status: Single Number of children: 2 Number of grandchildren: 0 Highest education level completed: Some College, No Degree service: No Current occupational status: employed 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
[2021-06-05] MEDS: clindamycin 900 MG/50 ML PREMIX 100 MG IV (07:00)
[2021-06-05] MEDS: vancomycin 1,000 MG SDV 1000 MG XX (07:40)
--- NOTE | 2021-06-05 08:17 | PM.OP ---
Operative Report Date of procedure: June 05, 2021 Pre-op Diagnosis: Lumbar stenosis with neurogenic claudication Post-op diagnosis: same Procedure Done: 1. RightL5/S1 laminectomy with partial facetectomy Surgeon: Elvis Cunningham Printed Circuit Boards Stripper Etcher: Faraz Parsons Printed Circuit Boards Stripper Etcher: The surgical aides teacher, Faraz Parsons, OMAR was needed for his expertise under the microscope. He was important and necessary throughout the procedure to complete in a safe and timely manner. He assisted with patient positioning prepping and draping tissue retraction suctioning of the operative field protection of the dural sac and tissue closure Anesthesia: General Estimated blood loss (mL): 5 Condition: stable Disposition: PACU Procedure: 1. RightL5/S1 laminectomy with partial facetectomy Patient is brought to the operative suite. After undergoing anesthesia they are placed in the prone position. All areas of impingement are well padded. Patient is then prepped and draped in the normal sterile fashion. A skin incision is made over the L5/S1 level. This is confirmed under c-arm guidance. A series of dilators are passed and the tubular retractor is docked on the L5 lamina. A bovie is used to clear the soft tissue off the lamina and the L 5/S1 facet joint. A high speed alexandr is then used to perform the laminectomy and take down the medial aspect of the L 5/S1 facet joint. A kerrison rongeure was then used to take down the remaining lamina and smooth the edge of the laminectomy up to the point where the ligamentum flavum attaches. Attention was then brought to the medial aspect of the facet joint. The remaining medial aspect of the superior and inferior aspect of the facet joint were taken down with the kerrison from the pedicle of L5 to S1. The facet joint had significant hypertrophy. Attention was then brought to the Ligamentum Flavum. The ligament was taken down from the lamina of L5 to S1 and out medially to the remaining facet joint. The ligament was thick. The dura was then exposed. The dura was in good repair. The L5 nerve was then traced with a curette out the L5/S1 foramen and found to be adequately decompressed. The S1 nerve was traced with a curette around the S1 pedicle. The lateral recess was opened with a kerrison helping to further decompress the S1 nerve. Wound is then irrigated copiously with saline and surgiflo is used to stop any bleeding. The tubular retractor is removed and the wound is closed with vicryl and monocryl suture. Glue is then used to protect the wound. A sterile dressing is then placed. Patient was then placed in the supine position and transferred to the PACU in stable condition.
[2021-06-05] MEDS: fentaNYL 50 mcg/mL INJ 2mL IVP (08:40)
[2021-06-05] MEDS: HYDROcodone-acetaminophen 5-325 mg Tablet 2 TAB PO (09:30)
--- NOTE | 2021-06-05 10:39 | ANE.PACU2 ---
Inpatient post-anesthesia follow up: Airway intact: Yes Vital signs: Temperature 97.0 F Pulse Rate 78 Respiratory Rate 18 Blood Pressure 125/99 Pulse Oximetry 99 Oxygen Delivery Me thod Room Air Oxygen Flow Rate 6 Fraction of Inspir ed Oxygen Hydration adequate: Yes Nausea and vomiting: No Pain level: 3 Mental status: Baseline
--- NOTE | 2021-06-06 12:06 | PC.NURSE ---
MEDICATION WASTE This nurse witnessed the waste of Fentnyl 50mcg by Tiki Aguirre RN, from 100mcg pulled for administration at 0840.
== END 2021-06-05 09:55 | disposition home or self-care (01) ==
PROVIDERS: PCP Nurse Practitioner Family; Visit Provider Orthopaedic Surgery
PROC: (CPT 63005; principal; 2021-06-05 07:00)
DX: M48.062 Spinal stenosis, lumbar region with neurogenic claudication (principal); J45.909 Unspecified asthma, uncomplicated; E66.01 Morbid (severe) obesity due to excess calories; Z68.36 Body mass index [BMI] 36.0-36.9, adult; F41.9 Anxiety disorder, unspecified
CPT/HCPCS: 63047; 72020; 76000; J0330; J1100; J2001; J2250; J2370; J2405; J2704; J3010; J3370; J3490; J7030

== ENCOUNTER 2021-06-15 12:34 | Outpatient (CLI) | payer MEDICAID, SELFPAY ==
--- NOTE | 2021-06-15 13:00 | MR_ITS ---
WS: [id number] MRI LUMBAR SPINE NONCONTRAST HISTORY: M48.062 - Spinal stenosis, lumbar region with neurogenic, status post L5-S1 decompression... . Recent surgery on 06/05/2021. COMPARISON: 04/28/2021 TECHNIQUE: Sagittal and axial multisequence imaging is submitted. Contrast not provided due to pain. Patient was unable to complete examination. Normal posterior lumbar alignment. There is a prior RIGHT laminectomy defect at L4. There is a new la minectomy defect on the RIGHT at the L5-S1 level. There is increased soft tissue and edema at the new surgical site. There is a small amount of marrow edema in the RIGHT L5 pedicle and intra-articular f acet. The RIGHT S1 nerve root is enlarged and edematous. There are numerous susceptibility artifacts as described on the prior study of 04/28/2021. Susceptibil ity artifacts are noted in the posterior epidural space beginning at the L3 level. There are numerous nodular areas of susceptibility artifact becoming more contiguous beginning at the mid L4 level and extending posteriorly to the mid S1 level. These were previously described and they are abutting the thecal sac and deforming the thecal sac. Several of these low signal artifacts are along the course o f the new laminectomy defect on the RIGHT at L5-S1. There is no focal fluid collection or postoperative collection. Patient was unable to continue the ex amination for IV contrast due to pain. The RIGHT S1 nerve root is edematous and enlarged. This is new since the prior study. Conus terminates normally at T12. L1-L2: Normal. L2-L3: Normal. L3-L4: Mild facet arthritis. No stenosis. L4-L5: Very slight annular disc bulging. Mild facet and ligamentum flavum arthritis. There is mild de formity upon the RIGHT lateral thecal sac beginning at the superior endplate of L5. This may be posto perative scarring. This is also the site of the susceptibility artifact. L5-S1: Mild annular disc bulging and annular fissure centrally. MR/MR lumbar spine wo con* [id number] IMPRESSION: 1. New RIGHT L5-S1 hemilaminectomy defect since 04/28/2021. 2. Again noted is a susceptibility artifact in the epidural space (L3-S1) and RIGHT subarticular recess at L5-S1. This was previously described and does appe ar to be causing compression and mass effect upon the thecal sac greatest at th e L5-S1 level. This may be chronic blood products/hemosiderin or calcification. 3. New edema and enlargement of the RIGHT S1 nerve root, consider neuritis. 4. No cord compression. 5. No focal collection identified or abscess. Patient was unable to tolerate a dditional imaging for post contrast examination which does limit evaluation for small abscesses.
== END 2021-06-15 12:35 | disposition home or self-care (01) ==
LOC: RADSHAW 12:39
PROVIDERS: PCP Nurse Practitioner Family; Visit Provider Orthopaedic Surgery
DX: M48.062 Spinal stenosis, lumbar region with neurogenic claudication (principal); M96.1 Postlaminectomy syndrome, not elsewhere classified
CPT/HCPCS: 72148

== ENCOUNTER → 2021-08-09 09:12 | Outpatient (BNVA) | payer MEDICAID, SELFPAY | PROVIDERS: PCP Nurse Practitioner Family; Visit Provider Specialist | DX: Z48.89 Encounter for other specified surgical aftercare (principal) | CPT/HCPCS: 73110 ==

== ENCOUNTER → 2021-08-31 08:51 | Outpatient (BNVA) | payer MEDICAID, SELFPAY | PROVIDERS: PCP Nurse Practitioner Family; Visit Provider Orthopaedic Surgery | DX: Z98.890 Other specified postprocedural states (principal); Z47.89 Encounter for other orthopedic aftercare | CPT/HCPCS: 99213 ==

== ENCOUNTER 2021-09-19 08:15 | Outpatient (CLI) | payer MEDICAID, SELFPAY ==
--- NOTE | 2021-09-19 08:00 | MR_ITS ---
WS: [id number] MRI OF THE LEFT WRIST WITHOUT GADOLINIUM ENHANCEMENT INDICATION: Palpable lump inside LEFT wrist along the radial artery. TECHNIQUE: Coronal T1 PD STIR and 3-D FSPGR. Sagittal T1. Axial T1 and T2 imaging. FINDINGS: Distal radius and ulna are normal in appearance. Normal TFCC. Normal DRUJ. No acute fractur es. Normal scaphoid and lunate. Normal scapholunate interval. Prior carpal tunnel release. Well-circumscribed lipoma along the dorsal forearm distally with a small amount of edema. This measures 2.3 x 1.8 x 0.7 CM. AP by transverse by superior to inferior. Palpable marker along the palmar aspect of the wrist overlying the radial styloid. Normal underlying subcutaneous fat. Small adjacent ganglion cyst measuring 9.5 x 6.0 x 3.6 mm AP by transverse by super oinferior. This is just adjacent to the radial artery and vein and just deep to the flexor carpi rad ialis tendon. Underlying abductor pollicis longus and extensor pollicis brevis tendons adjacent to the radial stylo id are normal in appearance. MR/MR wrist LT wo con* [id number] IMPRESSION: 1. In the area of palpable concern, along the palmar wrist, at the level of th e radial styloid is a small ganglion cyst measuring 9.5 x 6.0 x 3.6 mm AP by tr ansverse by superoinferior. This is just deep to the flexor carpi radialis tend on and adjacent to the radial artery and vein. 2. Underlying abductor pollicis longus and extensor pollicis brevis tendons du e to the palpable marker appear normal. 3. Dorsal lipoma overlying the distal forearm with associated subcutaneous carmen ma. This measures 2.3 x 1.8 x 0.7 cm described above. 4. No other significant findings.
== END 2021-09-19 08:16 | disposition home or self-care (01) ==
LOC: RAD 08:17
PROVIDERS: PCP Nurse Practitioner; Visit Provider Specialist
DX: M67.431 Ganglion, right wrist (principal); M25.532 Pain in left wrist; D17.21 Benign lipomatous neoplasm of skin and subcutaneous tissue of right arm
CPT/HCPCS: 73221

== ENCOUNTER → 2021-09-26 15:51 | Outpatient (BNVA) | payer MEDICAID, SELFPAY | PROVIDERS: PCP Nurse Practitioner; Visit Provider Psychiatry & Neurology Psychiatry | DX: F43.10 Post-traumatic stress disorder, unspecified (principal); F33.1 Major depressive disorder, recurrent, moderate | CPT/HCPCS: 99214 ==

== ENCOUNTER → 2021-10-16 13:10 | Outpatient (BNVA) | payer OTHER, SELFPAY | PROVIDERS: PCP Nurse Practitioner; Visit Provider Specialist | DX: M67.432 Ganglion, left wrist (principal); M79.89 Other specified soft tissue disorders | CPT/HCPCS: 99213 ==

== ENCOUNTER → 2021-11-07 14:37 | Outpatient (BNVA) | payer OTHER, SELFPAY | PROVIDERS: PCP Nurse Practitioner; Visit Provider Orthopaedic Surgery | DX: M48.062 Spinal stenosis, lumbar region with neurogenic claudication (principal) | CPT/HCPCS: 72110; 99214 ==

== ENCOUNTER 2022-06-14 23:24 | Emergency (ER) | payer MEDICAID, SELFPAY ==
[2022-06-14 23:26] VITALS: BP 157/92; PULSE 105; RESP 18; TEMP 36.6; O2SAT 100; BMI 34.0
--- NOTE | 2022-06-14 23:29 | ED_ITS ---
HPI - Extremity Injury (Upper) General: Chief Complaint: Extremity Injury, Upper Stated Complaint: LEFT ARM PAIN Time Seen by Provider: 06/14/22 23:29 History of Present Illness: 37-year-old female was moving a stove this evening when she went to lift up on the stove she felt a pull and sharp pain in her left elbow. Incident occurred about 8:00 this evening. Patient not taking any medication for pain. Patient appears nontoxic. Patient appears in no acute distress. No obvious deformity is noted. Patient at this time is in a sling from EMS. Review of Systems Musc: Reports: extremity pain (Left elbow pain) [facility] ED PFSH: Medical History Breast mass, right Depression Yung has history of depression and was seen in April 2019 and started on Lexapro 10mg. DANIEL (generalized anxiety disorder) Psychiatric care PTSD (post-traumatic stress disorder) Surgical History History of appendectomy History of carpal tunnel release History of cholecystectomy History of hysterectomy Family History Other CAD (coronary artery disease) Cancer Diabetes Hypertension Stroke Denies family history of Anesthesia complication Bleeding disorder Social History Smoking and tobacco status: current every day smoker cigarettes Packs smoked per day: 0.5 Years cigarettes smoked: 22 Quit status (tobacco): considering quitting Second hand smoke exposure: No Alcohol intake: former Adopted: No Caregiver/support person: No Lives independently: Yes Household members: children Housing: Manufactured/Mobile home Marital status: Single Number of children: 2 Number of grandchildren: 0 Highest education level completed: Some College, No Degree service: No Current occupational status: employed 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 Current occupational exposures/hazards: Yes (covid 19) Pets and animals: Yes Pets & animals: cat(s) and dog(s) History of recent travel: No Leisure activites: art and music Sexually active: No Current gender identity: Female Luz/Scientology: Baptism Special luz needs: No Agree to transfusion: Yes Financial difficulty paying for basics: Not Very Hard Female Reproductive History: Para: 2 Spontaneous abortions: Yes Physical Exam Const: COMMON NORMALS: alert HENMT: COMMON NORMALS: normocephalic HEAD & SCALP: normocephalic MOUTH: Normal oral and palatal mucosa present Neck/C-Spine: COMMON NORMALS: full ROM Resp: COMMON NORMALS: normal respiratory effort Cardio: COMMON NORMALS: regular rate and regular rhythm RATE: regular rate RHYTHM: regular rhythm Extremity: LEFT UPPER EXTREMITY: Yes upper arm (No deformity or tenderness), Yes elbow joint (Posterior tenderness) and Yes lower arm (No deformity or tenderness) Neuro: SENSORIUM/ORIENTATION: Yes alert Skin: COMMON NORMALS: turgor normal GENERAL SKIN EXAM: turgor normal Course Vital Signs: Vital signs: Vital Signs Temperature 97.8 F 06/14/22 23:26 Pulse Rate 105 H 06/14/22 23:26 Respiratory Rate 18 06/14/22 23:26 Blood Pressure 157/92 06/14/22 23:26 Pulse Oximetry 100 06/14/22 23:26 Oxygen Delivery Me thod 06/14/22 23:26 MDM - Extremity Injury (Upper) Medical Decision Making Patient comes in today for complaints of injury to the left elbow. On exam patient has decreased range of motion due to pain, and some posterior tenderness to the left elbow. No obvious deformity or dislocation is noted. Differential diagnosis includes but not limited to fracture, dislocation, sprain. X-ray of the elbow showed no dislocation or fracture. Reviewed exam with patient with recommendations for treatment and follow-up. Patient reported understanding agreed to plan. Discharge Plan Discharge Patient Disposition: Home Clinical Impression: Sprain and strain of elbow Condition: Stable Prescriptions: New ibuprofen 600 mg tablet 600 mg PO Q6H PRN (Reason: pain) Qty: 30 0RF No Action lorazepam 0.5 mg tablet 0.5 mg PO DAILY PRN (Reason: anxiety) 30 Days Qty: 20 1RF fluoxetine 40 mg capsule 80 mg PO DAILY 30 Days Qty: 60 3RF hydroxyzine HCl 50 mg tablet 50 mg PO BID PRN (Reason: anxiety or sleep) 30 Days Qty: 60 3RF albuterol sulfate 90 mcg/actuation HFA aerosol inhaler 2 puff INHALATION Q6H PRN (Reason: shortness of breath or wheezing) Qty: 6.7 1RF levocetirizine [Xyzal] 5 mg tablet 5 mg PO DAILY Qty: 30 2RF Discharge Orders: Discharge ED (Routine); Ordered 06/15/22 Ordered By: Leonel Fabian Referrals: Winter Munoz FNP [Primary Care Provider] - Discharge Diet: Usual diet Discharge Activity: Increase activity as tolerated Patient Instructions: Elbow Sprain (ED) Activity Restrictions/Additional Instructions: Activity as tolerated. Use sling for comfort only. Avoid using sling for prolonged time. I would recommend only using the sling for the next 3 days. After that increase use of the arm as much as tolerable. Use acetaminophen and ibuprofen to control pain. Use ice packs for further comfort relief. Follow-up with primary care as needed. Return to ED for new concerns. Coding Level of Care Code ED Document Manager for Danae Bowling Exam Detailed
--- NOTE | 2022-06-14 23:32 | XRR_ITS ---
PROCEDURE INFORMATION: Exam: XR Left Elbow Exam date and time: 06/14/2022 11:42 PM Age: 37 years old Clinical indication: Pain; Elbow; Left; Additional info: Injury, PT was moving a tv stand today, paper clip from home made sling TECHNIQUE: Imaging protocol: Radiologic exam of the Left elbow. Views: 3 or more views. COMPARISON: No relevant prior studies available. FINDINGS: Bones/joints: Normal. Soft tissues: Normal. XR/XR elbow LT min 3V* [id number] IMPRESSION: No acute findings.
[2022-06-14] MEDS: acetaminophen 500 mg Tablet PO (23:43)
[2022-06-14] MEDS: ibuprofen 200 mg Tablet 400 MG PO (23:43)
== END 2022-06-15 00:19 | disposition home or self-care (01) ==
PROVIDERS: Emergency Provider Nurse Practitioner Family; PCP Nurse Practitioner
DX: S53.402A Unspecified sprain of left elbow, initial encounter (principal); S46.812A Strain of other muscles, fascia and tendons at shoulder and upper arm level, left arm, initial encounter; F17.210 Nicotine dependence, cigarettes, uncomplicated; X50.0XXA Overexertion from strenuous movement or load, initial encounter
CPT/HCPCS: 73080; 99283

== ENCOUNTER 2023-09-04 18:33 | Emergency (ER) | payer MEDICAID, SELFPAY ==
--- NOTE | 2023-09-04 18:34 | XRR_ITS ---
PROCEDURE INFORMATION: Exam: XR Right Shoulder Exam date and time: 09/04/2023 7:36 PM Age: 38 years old Clinical indication: Pain; Shoulder; Right; Additional info: Pain after moving a mattress alone TECHNIQUE: Imaging protocol: Radiologic exam of the right shoulder. Views: 2 or more views. COMPARISON: MR shoulder RT wo/w con [id number] 10/14/2019 1:20 PM FINDINGS: Bones/joints: Normal. No fracture or dislocation. No acute osseous or joint abnormality. Soft tissues: Normal. XR/XR shoulder RT min 2V* [id number] IMPRESSION: No acute findings.
[2023-09-04 18:38] VITALS: BP 165/100; PULSE 93; RESP 18; TEMP 36.5; O2SAT 99; BMI 34.7
--- NOTE | 2023-09-04 18:46 | W.ED.EXTPRO ---
HPI - Extremity Problem General: Chief complaint: Extremity Injury, Upper Stated complaint: right shoulder injury Time Seen by Provider: 09/04/23 18:42 Source: patient Mode of arrival: ambulatory Limitations: no limitations History of Present Illness: 38-year-old female states she was moving a mattress 2 days ago by herself states that since then she has been having worsening right shoulder pain she states the pain worsened today. States pain sharp in nature rates it a 5 out of 10 is worse with movement denies any specific injury Associated symptoms: Deny chest pain, fever(s) or rash Review of Systems Const: Denies: fever(s), chills, body aches or change in appetite ENMT: Denies: throat pain or dental pain Card: Denies: chest pain Resp: Denies: dyspnea GI: Denies: abdominal pain, nausea, vomiting or diarrhea Musc: Denies: neck pain or back pain Skin/Breast: Denies: rash Neuro: Denies: headache(s) PFSH ED PFSH: Medical History DANIEL (generalized anxiety disorder) PTSD (post-traumatic stress disorder) Breast mass, right Depression Yung has history of depression and was seen in April 2019 and started on Lexapro 10mg. Surgical History History of carpal tunnel release History of appendectomy History of cholecystectomy History of hysterectomy Family History Other CAD (coronary artery disease) Cancer Diabetes Hypertension Stroke Denies family history of Anesthesia complication Bleeding disorder Social History Smoking and tobacco/nicotine status: current every day tobacco/nicotine user cigarettes Packs smoked per day: 0.5 Years cigarettes smoked: 22 Quit status (tobacco/nicotine): considering quitting Second hand smoke exposure: No Alcohol intake: former Substance/Drug Use: former Date of last use: clean for 13 yeras Adopted: No Caregiver/support person: No Lives independently: Yes Household members: children Housing: Manufactured/Mobile home Marital status: Single Number of children: 2 Number of grandchildren: 0 Highest education level completed: Some College, No Degree service: No Current occupational status: employed 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 Current occupational exposures/hazards: Yes (covid 19) Pets and animals: Yes Pets & animals: cat(s) and dog(s) Leisure activites: art and music Sexually active: No Do you think of yourself as: Straight/Heterosexual Current gender identity: Female Luz/Samaritan: Jew Special luz needs: No Agree to transfusion: Yes Female Reproductive History: Para: 2 Spontaneous abortions: Yes Physical Exam Const: COMMON NORMALS: no acute distress, patient oriented x3 and healthy appearing HENMT: COMMON NORMALS: normocephalic and atraumatic HEAD & SCALP: normocephalic and atraumatic Neck/C-Spine: COMMON NORMALS: full ROM and supple Chest: COMMONS NORMALS: normal inspection of the chest Resp: COMMON NORMALS: normal respiratory effort Extremity: COMMON NORMALS: full ROM NARRATIVE EXTREMITY EXAM: tenderness over right shoulder noted no obvious deformity Neuro: COMMON NORMALS: patient oriented x3, moves all extremities and no focal motor deficits Psych: COMMON NORMALS: mental status grossly normal, Normal thought process present and cooperative THOUGHT PROCESS: Normal thought process present Skin: COMMON NORMALS: no rashes or lesions noted and no wounds GENERAL SKIN EXAM: no rashes or lesions noted Course Vital Signs: Vital signs: Vital Signs Temperature 97.7 F 09/04/23 18:38 Pulse Rate 93 09/04/23 18:38 Respiratory Rate 18 09/04/23 18:38 Blood Pressure 165/100 09/04/23 18:38 Pulse Oximetry 99 09/04/23 18:38 Oxygen Delivery Me thod Room Air 09/04/23 18:38 MDM - Extremity (Nontraumatic) Medical Decision Making Patient presents with right shoulder strain she has full range of motion x-ray shows no fracture we will place her on Naprosyn Robaxin she is to ice she is follow-up with PCP and return if worsening she understands agrees to plan XR interpretation done by ED provider, pending radiology final review ED provider radiology interpretation(s): X-ray right shoulder no acute abnormality Discharge Plan Discharge Patient Disposition: Home Clinical Impression: Right shoulder strain Qualifiers: Encounter type: initial encounter Qualified Code(s): S46.911A - Strain of unspecified muscle, fascia and tendon at shoulder and upper arm level, right arm, initial encounter Prescriptions: New methocarbamol 750 mg tablet 750 mg PO Q6H PRN (Reason: spasms) Qty: 20 0RF Naprosyn 500 mg tablet 500 mg PO BID PRN (Reason: pain) Qty: 20 0RF No Action lorazepam 0.5 mg tablet 0.5 mg PO DAILY PRN (Reason: anxiety) 30 Days Qty: 20 1RF fluoxetine 40 mg capsule 80 mg PO DAILY 30 Days Qty: 60 3RF hydroxyzine HCl 50 mg tablet 50 mg PO BID PRN (Reason: anxiety or sleep) 30 Days Qty: 60 3RF albuterol sulfate 90 mcg/actuation HFA aerosol inhaler 2 puff INHALATION Q6H PRN (Reason: shortness of breath or wheezing) Qty: 6.7 1RF levocetirizine [Xyzal] 5 mg tablet 5 mg PO DAILY Qty: 30 2RF ibuprofen 600 mg tablet 600 mg PO Q6H PRN (Reason: pain) Qty: 30 0RF Discharge Orders: Discharge ED (Routine); Ordered 09/04/23 Ordered By: Shahrzad Boyle Referrals: Winter Munoz FNP [Primary Care Provider] - 1-3 days Discharge Diet: Advance as tolerated Discharge Activity: Resume usual activity Patient Instructions: Shoulder Sprain (ED) Coding Level of Care Code ED Bilingual Counter Sales [employer] for Danae Bowling
[2023-09-04] MEDS: methocarbamol 750 mg Tablet 1500 MG PO (18:54)
[2023-09-04] MEDS: ketorolac 60 mg/2 mL INJ IM (18:54)
== END 2023-09-04 19:56 | disposition home or self-care (01) ==
PROVIDERS: Emergency Provider Emergency Medicine; PCP Nurse Practitioner
DX: S46.911A Strain of unspecified muscle, fascia and tendon at shoulder and upper arm level, right arm, initial encounter (principal); F17.210 Nicotine dependence, cigarettes, uncomplicated; X50.0XXA Overexertion from strenuous movement or load, initial encounter
CPT/HCPCS: 73030; 96372; 99284; J1885

== ENCOUNTER 2024-03-28 21:37 | Emergency (ER) | payer BC, MEDICAID, SELFPAY ==
[2024-03-28 21:51] VITALS: BP 133/88; PULSE 99; RESP 16; TEMP 36.5; O2SAT 98; BMI 27.2
--- NOTE | 2024-03-28 22:26 | XRR_ITS ---
PROCEDURE INFORMATION: Exam: XR Lumbosacral Spine Exam date and time: 03/28/2024 10:34 PM Age: 39 years old Clinical indication: Low back pain; Prior surgery; Surgery date: 6+ months; Surgery type: Laminectomy/discectomy; Additional info: Low back pain, HX of surgery 2y ago TECHNIQUE: Imaging protocol: Radiologic exam of the lumbosacral spine. Views: 2 or 3 views. COMPARISON: CT lumbar spine wo con* [id number] 03/20/2020 1:16 AM FINDINGS: Bones/joints: Normal. No acute fracture. Normal alignment. Soft tissues: Stool throughout the colon. No dilated bowel.. XR/XR lumbar spine 2-3V* [id number] IMPRESSION: No acute findings.
[2024-03-28] MEDS: orphenadrine 30 mg/mL Inj 2 mL 60 MG IM (22:43)
[2024-03-28] MEDS: ketorolac 30 mg/mL INJ 60 MG IM (22:43)
[2024-03-28 22:44] VITALS: RESP 18; O2SAT 97
[2024-03-28] MEDS: oxyCODONE-APAP 5-325 mg Tablet 2 TAB PO (22:44)
--- NOTE | 2024-03-28 22:57 | ED_ITS ---
HPI - Back Pain/Injury General: Chief Complaint: Back Pain/Injury Stated Complaint: Back pain History of Present Illness: 39-year-old female with history of chron ic back pain, and 2 lumbar surgeries in her past. Her last was a couple of years ago. She notes that on , she was helping her kids and family [place] or treat, and her back began to hurt much more. She is experiencing bilateral lumbosacral junction pain, radiating mainly down her right posterior lower extremity. No significant numbness or tingling. That side does feel a bit weak. No saddle anesthesia. No loss of control of bowel or bladder function. No fever. She notes that she has done decently well following her second surgery otherwise. She is not on pain medication chronically. Related Data Previous Rx's Medication Instructions Recorded albuterol sulfate 90 mcg/actuation 2 puff inhalation Q6H PRN 08/22/20 aerosol inhaler shortness of breath or wheezing #6.7 grams levocetirizine 5 mg tablet (Xyzal) 5 mg PO DAILY #30 tabs 08/22/20 fluoxetine 40 mg capsule 80 mg (2 x 40 mg) PO DAILY 30 days 02/27/22 #60 caps hydroxyzine HCl 50 mg tablet 50 mg PO BID PRN anxiety or sleep 02/27/22 30 days #60 tabs lorazepam 0.5 mg tablet 0.5 mg PO DAILY PRN anxiety 30 02/27/22 days #20 tabs ibuprofen 600 mg tablet 600 mg PO Q6H PRN pain #30 tabs 06/15/22 naproxen 500 mg tablet (Naprosyn) 500 mg PO BID PRN pain #20 tabs 09/04/23 hydrocodone 5 mg-acetaminophen 325 1 tab PO Q8H PRN pain #7 tabs 03/28/24 mg tablet methocarbamol 750 mg tablet 750 mg PO Q6H PRN spasms #20 tabs 03/28/24 methylprednisolone 4 mg tablets in See Rx Instructions PO .COMPLEX 03/28/24 a dose pack (Medrol (Jarod)) #21 ea Allergies Allergy/AdvReac Type Severity Reaction Status Date / Time Penicillins Allergy Severe breathing Verified 09/04/23 18:41 problems azithromycin [From Zithromax] Allergy Mild diarrhea Verified 09/04/23 18:41 codeine Allergy ADR-Anxiety Verified 09/04/23 18:41 latex Allergy ALGY-Anaphy Verified 09/04/23 18:41 laxis ondansetron [From Zofran] Allergy ADR-Anxiety Verified 09/04/23 18:41 promethazine [From Phenergan] Allergy ADR-Anxiety Verified 09/04/23 18:41 tramadol Allergy ADR-Anxiety Verified 09/04/23 18:41 hydroxyzine AdvReac throwing up Verified 09/04/23 18:41 PFSH ED PFSH: Medical History DANIEL (generalized anxiety disorder) PTSD (post-traumatic stress disorder) Breast mass, right Depression Yung has history of depression and was seen in April 2019 and started on Lexapro 10mg. Surgical History History of carpal tunnel release History of appendectomy History of cholecystectomy History of hysterectomy Family History Other CAD (coronary artery disease) Cancer Diabetes Hypertension Stroke Denies family history of Anesthesia complication Bleeding disorder Social History Smoking and tobacco/nicotine status: current every day tobacco/nicotine user cigarettes Packs smoked per day: 0.5 Years cigarettes smoked: 22 Quit status (tobacco/nicotine): considering quitting Second hand smoke exposure: No Alcohol intake: former Substance/Drug Use: former Date of last use: clean for 13 yeras Adopted: No Caregiver/support person: No Lives independently: Yes Household members: children Housing: Manufactured/Mobile home Marital status: Single Number of children: 2 Number of grandchildren: 0 Highest education level completed: Some College, No Degree service: No Current occupational status: employed 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 Current occupational exposures/hazards: Yes (covid 19) Pets and animals: Yes Pets & animals: cat(s) and dog(s) Leisure activites: art and music Sexually active: No Do you think of yourself as: Straight/Heterosexual Current gender identity: Female Luz/Roman Catholic: Restorationist Special luz needs: No Agree to transfusion: Yes Female Reproductive History: Para: 2 Spontaneous abortions: Yes Physical Exam Const: COMMON NORMALS: no acute distress GENERAL APPEARANCE: cooperative; not ill appearing and not frail appearing HENMT: COMMON NORMALS: normocephalic, atraumatic and Normal external nose present HEAD & SCALP: normocephalic and atraumatic FACE & SINUS: normal facial exam and face symmetric NOSE: Normal external nose present Eye: COMMON NORMALS: Equal, round and reactive pupils present and EOMs intact bilaterally PUPIL: Yes Equal, round and reactive pupils present Neck/C-Spine: GENERAL: Yes trachea midline Chest: CHEST: Yes Symmetrical chest wall rise Resp: COMMON NORMALS: normal respiratory effort, No retractions, No use of accessory muscles and clear to auscultation bilaterally AUSCULTATION: clear to auscultation bilaterally Cardio: COMMON NORMALS: regular rate and regular rhythm RATE: regular rate RHYTHM: regular rhythm GI: COMMON NORMALS: Normal to inspection, nondistended, normoactive bowel sounds present Back/Pelvis: OTHER: Exam of the lumbar spine reveals tenderness over the lumbosacral junction both in the midline and in the paraspinal musculature. Straight leg raise test causes pain radiating to the buttock and posterior thigh on the right, no radicular pain on the left. Sensation is intact distally. Pulses are normal distally. There is no deformity. Extremity: COMMON NORMALS: no pedal edema Neuro: LUKE COMA SCALE: document GCS findings Luke coma scale eye opening: Spontaneous Seaman coma scale verbal response: Orientated Seaman coma scale motor response: Obey commands Seaman coma scale total score: 15 SENSORY EXAM: Yes extremities (intact) Psych: COMMON NORMALS: speech normal SPEECH: Yes normal speech Skin: COMMON NORMALS: no rashes or lesions noted GENERAL SKIN EXAM: no rashes or lesions noted Course Vital Signs: Vital signs: Vital Signs Temperature 97.7 F 03/28/24 21:51 Pulse Rate 99 03/28/24 21:51 Respiratory Rate 18 03/28/24 22:44 Blood Pressure 133/88 03/28/24 21:51 Pulse Oximetry 97 03/28/24 22:44 Oxygen Delivery Me thod Room Air 03/28/24 21:51 MDM - Back Pain/Injury Medical Decision Making X-rays appear stable. There is no listhesis. Disc spaces are essentially maintained. Foramina appear patent. She is improved after injections here. Will do a tapering burst of steroid, short course of pain medication, outpatient follow-up. Return for worsening symptoms. Labs Radiology Impressions Lumbar Spine X-Ray 03/28/24 22:26 IMPRESSION: No acute findings. All radiology interpretation(s) finalized by discharge Discharge Plan Discharge Patient Disposition: Home Clinical Impression: Lumbar radiculopathy Condition: Stable Prescriptions: New hydrocodone-acetaminophen 5-325 mg tablet 1 tab PO Q8H PRN (Reason: pain) Qty: 7 0RF methylprednisolone [Medrol (Jarod)] 4 mg tablets,dose pack See Rx Instructions .ROUTE .COMPLEX Qty: 21 0RF Rx Instructions: orally per package directions Continued methocarbamol 750 mg tablet 750 mg PO Q6H PRN (Reason: spasms) Qty: 20 0RF No Action lorazepam 0.5 mg tablet 0.5 mg PO DAILY PRN (Reason: anxiety) 30 Days Qty: 20 1RF fluoxetine 40 mg capsule 80 mg PO DAILY 30 Days Qty: 60 3RF hydroxyzine HCl 50 mg tablet 50 mg PO BID PRN (Reason: anxiety or sleep) 30 Days Qty: 60 3RF albuterol sulfate 90 mcg/actuation HFA aerosol inhaler 2 puff INHALATION Q6H PRN (Reason: shortness of breath or wheezing) Qty: 6.7 1RF levocetirizine [Xyzal] 5 mg tablet 5 mg PO DAILY Qty: 30 2RF ibuprofen 600 mg tablet 600 mg PO Q6H PRN (Reason: pain) Qty: 30 0RF Naprosyn 500 mg tablet 500 mg PO BID PRN (Reason: pain) Qty: 20 0RF Discharge Orders: Discharge ED (Routine); Ordered 03/28/24 Ordered By: Vasquez Lal Referrals: Winter Munoz FNP [Primary Care Provider] - 4-7 days Patient Instructions: Lumbar Radiculopathy (ED), Opioid Safety, Pain Management Activity Restrictions/Additional Instructions: Return for worsening pain despite treatment, fever, loss of control of your bladder or bowel function, numbness to the groin, any other concerning symptoms. Call your doctor on Saturday for a follow-up appointment this coming week. Coding Level of Care Code ED Grinder Operator External Tool for Danae Bowling
== END 2024-03-28 23:42 | disposition home or self-care (01) ==
PROVIDERS: Emergency Provider Emergency Medicine; PCP Nurse Practitioner
DX: M54.16 Radiculopathy, lumbar region (principal); F17.210 Nicotine dependence, cigarettes, uncomplicated
CPT/HCPCS: 72100; 96372; 99284; J1885; J2360

== ENCOUNTER → 2024-04-02 15:19 | Outpatient (BNVA) | payer BC, MEDICAID, SELFPAY | PROVIDERS: PCP Nurse Practitioner; Visit Provider Orthopaedic Surgery | DX: M54.9 Dorsalgia, unspecified (principal) | CPT/HCPCS: 72110 ==

== ENCOUNTER 2024-06-13 16:08 | Emergency (ER) | payer BC, MEDICAID, SELFPAY ==
[2024-06-13 16:11] VITALS: BP 146/91; PULSE 95; RESP 18; TEMP 36.5; O2SAT 100
[2024-06-13] MEDS: cefTRIAXone 1,000 MG in water for injection-sterile 2.1 ML 1 MG IM (16:15)
--- NOTE | 2024-06-13 16:20 | ED_ITS ---
HPI - Extremity Problem General: Chief complaint: Extremity Injury, Upper Stated complaint: right arm infection Time Seen by Provider: 06/13/24 16:10 Source: patient Mode of arrival: ambulatory History of Present Illness: 39-year-old female who is here from senior living with an abscess noted to her right upper arm states she has had pain and erythema at the site she rates the pain a 6 out of 10 she had some slight drainage denies any fevers. She has had MRSA in the past Associated symptoms: Deny chest pain, fever(s) or rash Related Data Previous Rx's Medication Instructions Recorded albuterol sulfate 90 mcg/actuation 2 puff inhalation Q6H PRN 08/22/20 aerosol inhaler shortness of breath or wheezing #6.7 grams levocetirizine 5 mg tablet (Xyzal) 5 mg PO DAILY #30 tabs 08/22/20 fluoxetine 40 mg capsule 80 mg (2 x 40 mg) PO DAILY 30 days 02/27/22 #60 caps hydroxyzine HCl 50 mg tablet 50 mg PO BID PRN anxiety or sleep 02/27/22 30 days #60 tabs lorazepam 0.5 mg tablet 0.5 mg PO DAILY PRN anxiety 30 02/27/22 days #20 tabs ibuprofen 600 mg tablet 600 mg PO Q6H PRN pain #30 tabs 06/15/22 naproxen 500 mg tablet (Naprosyn) 500 mg PO BID PRN pain #20 tabs 09/04/23 methocarbamol 750 mg tablet 750 mg PO Q6H PRN spasms #20 tabs 03/28/24 methylprednisolone 4 mg tablets in See Rx Instructions PO .COMPLEX 03/28/24 a dose pack (Medrol (Jarod)) #21 ea hydrocodone 5 mg-acetaminophen 325 1 tab PO Q6H PRN pain #7 tabs 03/30/24 mg tablet prednisone 20 mg tablet 20 mg PO DAILY #15 tabs 05/14/24 cephalexin 500 mg capsule 500 mg PO TID 7 days #21 caps 06/13/24 sulfamethoxazole 800 1 tab PO BID 10 days #20 tabs 06/13/24 mg-trimethoprim 160 mg tablet (Bactrim DS) Allergies Allergy/AdvReac Type Severity Reaction Status Date / Time Penicillins Allergy Severe breathing Verified 09/04/23 18:41 problems azithromycin [From Zithromax] Allergy Mild diarrhea Verified 09/04/23 18:41 codeine Allergy ADR-Anxiety Verified 09/04/23 18:41 latex Allergy ALGY-Anaphy Verified 09/04/23 18:41 laxis ondansetron [From Zofran] Allergy ADR-Anxiety Verified 09/04/23 18:41 promethazine [From Phenergan] Allergy ADR-Anxiety Verified 09/04/23 18:41 tramadol Allergy ADR-Anxiety Verified 09/04/23 18:41 hydroxyzine AdvReac throwing up Verified 09/04/23 18:41 Review of Systems Const: Denies: fever(s), chills, body aches or change in appetite ENMT: Denies: throat pain or dental pain Card: Denies: chest pain Resp: Denies: dyspnea GI: Denies: abdominal pain, nausea, vomiting or diarrhea Musc: Denies: neck pain or back pain Skin/Breast: Denies: rash PFSH ED PFSH: Medical History DANIEL (generalized anxiety disorder) PTSD (post-traumatic stress disorder) Breast mass, right Depression [place] has history of depression and was seen in April 2019 and started on Lexapro 10mg. Surgical History History of carpal tunnel release History of appendectomy History of cholecystectomy History of hysterectomy Family History Other CAD (coronary artery disease) Cancer Diabetes Hypertension Stroke Denies family history of Anesthesia complication Bleeding disorder Social History Smoking and tobacco/nicotine status: never used tobacco/nicotine Quit status (tobacco/nicotine): considering quitting Second hand smoke exposure: No Alcohol intake: former Substance/Drug Use: former Date of last use: clean for 13 yeras Adopted: No Caregiver/support person: No Lives independently: Yes Household members: children Housing: Manufactured/Mobile home Marital status: Single Number of children: 2 Number of grandchildren: 0 Highest education level completed: Some College, No Degree service: No Current occupational status: employed 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 Current occupational exposures/hazards: Yes (covid 19) Pets and animals: Yes Pets & animals: cat(s) and dog(s) Leisure activites: art and music Sexually active: No Do you think of yourself as: Straight/Heterosexual Current gender identity: Female Luz/Yazidi: Methodist Special luz needs: No Agree to transfusion: Yes Female Reproductive History: Para: 2 Spontaneous abortions: Yes Physical Exam Const: COMMON NORMALS: no acute distress, patient oriented x3 and healthy appearing HENMT: COMMON NORMALS: normocephalic and atraumatic HEAD & SCALP: normocephalic and atraumatic Neck/C-Spine: COMMON NORMALS: full ROM and supple Chest: COMMONS NORMALS: normal inspection of the chest Resp: COMMON NORMALS: normal respiratory effort, No retractions, No use of accessory muscles and clear to auscultation bilaterally AUSCULTATION: clear to auscultation bilaterally Cardio: COMMON NORMALS: regular rate, regular rhythm and No murmurs present (Cardio) RATE: regular rate RHYTHM: regular rhythm Extremity: COMMON NORMALS: full ROM Neuro: COMMON NORMALS: patient oriented x3, moves all extremities and no focal motor deficits Psych: COMMON NORMALS: mental status grossly normal, Normal thought process present and cooperative THOUGHT PROCESS: Normal thought process present Skin: COMMON NORMALS: no wounds NARRATIVE SKIN EXAM: Abscess noted to left bicep Procedures Abscess I/D Site: upper extremity Side (if applicable): right Local Anesthetic: lidocaine 1% Amount of anesthesia used (mL): 4 Technique: incised with #11 blade Irrigation: No Packing used?: none Course Vital Signs: Vital signs: Vital Signs Temperature 97.7 F 06/13/24 16:11 Pulse Rate 95 06/13/24 16:11 Respiratory Rate 18 06/13/24 16:11 Blood Pressure 146/91 06/13/24 16:11 Pulse Oximetry 100 06/13/24 16:11 Oxygen Delivery Me thod Room Air 06/13/24 16:11 MDM - Extremity (Nontraumatic) Medical Decision Making Patient presents here with an abscess to right upper arm did incise abscess and drain it we will place her on antibiotics she stable for discharge Medical Records I reviewed the patient's medical records. No radiology studies performed this visit Discharge Plan Discharge Patient Disposition: Home Clinical Impression: Abscess Condition: Stable Prescriptions: New sulfamethoxazole-trimethoprim [Bactrim DS] 800-160 mg tablet 1 tab PO BID 10 Days Qty: 20 0RF cephalexin 500 mg capsule 500 mg PO TID 7 Days Qty: 21 0RF No Action lorazepam 0.5 mg tablet 0.5 mg PO DAILY PRN (Reason: anxiety) 30 Days Qty: 20 1RF fluoxetine 40 mg capsule 80 mg PO DAILY 30 Days Qty: 60 3RF hydroxyzine HCl 50 mg tablet 50 mg PO BID PRN (Reason: anxiety or sleep) 30 Days Qty: 60 3RF prednisone 20 mg tablet 20 mg PO DAILY Qty: 15 0RF Rx Instructions: 60mg for three days, 40mg for two days, 20mg for two days albuterol sulfate 90 mcg/actuation HFA aerosol inhaler 2 puff INHALATION Q6H PRN (Reason: shortness of breath or wheezing) Qty: 6.7 1RF levocetirizine [Xyzal] 5 mg tablet 5 mg PO DAILY Qty: 30 2RF ibuprofen 600 mg tablet 600 mg PO Q6H PRN (Reason: pain) Qty: 30 0RF Naprosyn 500 mg tablet 500 mg PO BID PRN (Reason: pain) Qty: 20 0RF methylprednisolone [Medrol (Jarod)] 4 mg tablets,dose pack See Rx Instructions .ROUTE .COMPLEX Qty: 21 0RF Rx Instructions: orally per package directions methocarbamol 750 mg tablet 750 mg PO Q6H PRN (Reason: spasms) Qty: 20 0RF hydrocodone-acetaminophen 5-325 mg tablet 1 tab PO Q6H PRN (Reason: pain) Qty: 7 0RF Discharge Orders: Discharge ED (Routine); Ordered 06/13/24 Ordered By: Shahrzad Boyle Referrals: Winter Munoz FNP [Primary Care Provider] - Discharge Diet: Advance as tolerated Discharge Activity: Resume usual activity Patient Instructions: Abscess (ED) Coding Level of Care Code ED Tooling Manager for Danae Bowling
[2024-06-13 16:28] VITALS: BP 144/88; PULSE 85; O2SAT 99
== END 2024-06-13 16:32 | disposition home or self-care (01) ==
PROVIDERS: Emergency Provider Emergency Medicine; PCP Nurse Practitioner
DX: L02.413 Cutaneous abscess of right upper limb (principal)
CPT/HCPCS: 10060; 99284; J0696

== ENCOUNTER → 2024-09-15 12:55 | Outpatient (BNVA) | payer OTHER, SELFPAY | PROVIDERS: PCP Nurse Practitioner; Visit Provider Nurse Practitioner | DX: F41.1 Generalized anxiety disorder (principal); F33.1 Major depressive disorder, recurrent, moderate; F43.10 Post-traumatic stress disorder, unspecified | CPT/HCPCS: 80061; 83036 ==

== ENCOUNTER 2024-11-23 11:35 | Outpatient (CLI) | payer MEDICAID, BC, SELFPAY ==
[2024-10-13 15:12] VITALS: BP 147/95; BMI 34.9
--- NOTE | 2024-11-23 11:45 | MR_ITS ---
WS: [id number] MRI LUMBAR SPINE NONCONTRAST TECHNIQUE: Sagittal T1, T2 and STIR imaging. Axial T1 and T2 imaging. CLINICAL INFORMATION: back pain COMPARISON: 2021 FINDINGS: Mild lumbar curve. No acute compression. No high-grade central canal stenosis. Prior laminectomy defects at L4-L5 and L5-S1. L1-L2: Mild facet arthropathy. Spinal canal and foramen are patent. L2-L3: Mild annular bulging with narrowing of the subarticular recess bilaterally. Mild facet arthropathy. Spinal canal and foramen are patent. L3-L4: Mild annular bulging. Narrowing of the RIGHT greater than LEFT subarticular recess with mild central canal stenosis appears progressed compared to previous. Moderate facet arthropathy. L4-L5: Mild annular bulging. Postoperative changes with laminectomy defects. Narrowing of the subarticular recess bilaterally. Foramen are patent. Moderate facet arthropathy. Mild residual narrowing of the thecal sac. L5-S1: Mild annular bulging. RIGHT hemilaminectomy defects. Spinal canal and foramen are patent. Moderate facet arthropathy. Visualized pelvic bony structures: Normal. Paravertebral soft tissues: Normal. MR/MR lumbar spine wo con* [id number] IMPRESSION: 1. Mild central canal stenosis L3-4 with impingement on the RIGHT greater than LEFT subarticular recess. This appears progressed compared to previous. 2. Mild residual narrowing of the thecal sac at L4-5 with prior laminectomy de fects. Mild narrowing of the subarticular recess at this level. 3. RIGHT laminectomy defects L5-S1. 4. Annular bulging L2-3 with slight impingement on the subarticular recess xiomara aterally also progressed compared to previous. 5. Moderate facet arthropathy L3-L5.
== END 2024-11-23 11:36 | disposition home or self-care (01) ==
LOC: RAD 11:36
PROVIDERS: PCP Nurse Practitioner; Visit Provider Orthopaedic Surgery
DX: M48.062 Spinal stenosis, lumbar region with neurogenic claudication (principal); M96.89 Other intraoperative and postprocedural complications and disorders of the musculoskeletal system; M51.369 Other intervertebral disc degeneration, lumbar region without mention of lumbar back pain or lower extremity pain; M47.896 Other spondylosis, lumbar region; M43.8X6 Other specified deforming dorsopathies, lumbar region; M51.379 Other intervertebral disc degeneration, lumbosacral region without mention of lumbar back pain or lower extremity pain; M47.897 Other spondylosis, lumbosacral region
CPT/HCPCS: 72148

== ENCOUNTER → 2024-12-10 10:55 | Outpatient (BNVA) | payer BC, MEDICAID, SELFPAY ==
[2024-10-13 15:12] VITALS: BP 147/95; BMI 34.9
== END ==
PROVIDERS: PCP Nurse Practitioner; Visit Provider Orthopaedic Surgery
DX: Z01.818 Encounter for other preprocedural examination (principal)
CPT/HCPCS: 36415; 80053; 81001; 85025

== ENCOUNTER 2024-12-19 15:46 | Emergency (ER) | payer BC, MEDICAID, SELFPAY ==
[2024-10-13 15:12] VITALS: BP 147/95; BMI 34.9
[2024-12-19 15:52] VITALS: BP 121/85; PULSE 94; RESP 18; TEMP 36.7; O2SAT 98; BMI 35.4
--- OUTSIDE RECORDS SUMMARY | 2024-12-19 15:52 | XMS_ITS | Patient Health Record ---
Author Organization [facility] Address [address] [place], [place] [id number] Care Team Providers Care Stain Sprayer Name Role Phone Jose Luis TAMEZ, Hermes Primary Care Provider Unavailab Marley TAMEZ, Fish Unavailable [phone] Allergies Allergen (clinical drug ingredient) Drug/Non Drug Allergy documented on EMR Reaction Allergy Type Onset Date Status Latex Latex (uncoded) Unknown Allergy Acti ve azithromycin Zithromax stomach upset Drug Allergy Active Zofran Unknown Drug Allergy Active promethazine Phenergan panic Drug Allergy Acti ve codeine codeine Unknown Drug Allergy Active penicillin hives Drug Allergy Active Reason For Referral No Information Medications Medication SIG (Take, Route, Frequency, Duration) Notes Start Date End Date Status Pullman 325 mg-7.5 mg 1-2 tabs po orally Q4-6H prn pain (max 6/day; hold within 4H of planned sleep) for 23 days 03/18/2018 Active FLUoxetine 20 mg 1 cap orally once a day Active Vitamin B-12 500 mcg 1 tab orally once a day Active tiZANidine 4 mg 1-2 tabs po orally TID prn spasm for 30 day(s) Active acetaminophen-hydroco done 325 mg-7.5 mg 1-2 tabs po orally Q4-6H prn pain (max 6/day; hold within 4H of planned sleep) for 30 day(s) Printed prescription given (1-month). Active hydrOXYzine hydrochloride 50 mg 1 tab orally 3 times a day Active Social History Tobacco Use: Social History Observation Description Date Details (start date - stop date) Former Smoker NA - 11/27/2017 alcohol Question Answer Notes Did you have a drink containing alcohol in the p ast year? No Points 0 Interpretation Negative Tobacco use: Question Answer Notes : former smoker When did you stop smoking? 11/27/2017 Problems Problem Type SNOMED Code ICD Code Onset Dates Problem Status W/U Status Risk Notes Problem Low back pain (948110477) Low back pain (M54.5) Active confirmed Problem Lumbosacral spondylosis without myelopathy (34181366) Spondylosis without myelopathy or radiculopathy, lumbar region (M47.816) Active confirmed Problem High risk drug monitoring status (696056516) roasterman (current) use of opiate analgesic (Z79.891) Active confirmed Problem Hypersomnia (21162305) Hypersomnia, unspecified (G47.10) Active confirmed Problem Sleep disorder (96473292) Other sleep disorders (G47.8) Active confirmed Problem Radiculopathy due to lumbar intervertebral disc disorder (849862394275569) Intervertebral disc disorders with radiculopathy, lumbar region (M51.16) Active confirmed Problem Disorder of lumbar disc (895783054) Other intervertebral disc disorders, lumbar region (M51.86) Active confirmed Problem Myalgia (28019896) Myalgia (M79.1) Active confirmed Problem Long-term current use of drug therapy (415708472) Other senior care (current) drug therapy (Z79.899) Active confirmed Problem Muscle pain (11961742) Myalgia, other site (M79.18) Active confirmed Plan Of Treatment No Information Insurance Providers Payer Name Payer Address Payer Phone Subscriber Number Group Number Insured Name Patient Relationship to Insured Coverage Start Date Coverage End Date [facility] ATTN CLAIMS [address] [place] [phone] [id number] Nicolasa Conklin Self - patient is the insured Medical (General) History Medical History History ICD Code Low back pain Per patient statement / ques tionairre: RLS, Depression, PTSD, Severe anxiety, Herniated L1, L2, L3, L4, Sciatica, Chronic migraines, Endometriosis, PCOS, Bilateral carpal tunnel syndrome Surgical History Surgery Date(Month/Year) Laparotomy for endometrial cysts x 3 Oophorectomy, 2004 Appendectomy, 2012 Hysterectomy, 2012 Cholecystectomy, 2014 Right carpal tunnel release, 07/27/16 Left carpal tunnel release, 09/27/16 [place], 04/2017 Hospitalization History Reason Date(Month/Year)
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
[2024-12-19 19:36] VITALS: BP 122/97; PULSE 74; O2SAT 94
== END 2024-12-19 19:39 | disposition home or self-care (01) ==
PROVIDERS: Emergency Provider Physician Assistant; PCP Nurse Practitioner
DX: M54.16 Radiculopathy, lumbar region (principal); F17.210 Nicotine dependence, cigarettes, uncomplicated
CPT/HCPCS: 99283; J7512; J9999

== ENCOUNTER 2025-01-04 11:19 | Observation (INO) | payer BC, MEDICAID, SELFPAY ==
[2024-10-13 15:12] VITALS: BP 147/95; BMI 34.9
[2025-01-04] VITALS (23 sets, daily range): BP systolic 102–145; BP diastolic 61–98; PULSE 77–99; RESP 10–23; TEMP 36.4–36.8; O2SAT 92–100; BMI 36.9
--- NOTE | 2025-01-04 06:08 | ANES.PREANE2 ---
Pre-Anesthetic Assessment Height/Weight: Height 5 ft 9 in Preop Diagnosis: Lumbar stenosis with neurogenic claudication Operation Date: 01/04/25 07:00 Proposed Procedures p Posterior Lumbar Interbody Fusion PLIF(Not Applicable) - Elvis Cunningham, DO Social Tobacco and No alcohol Exam alert, oriented x 3, clear to auscultation bilaterally and regular rate & rhythm Airway Submandibular: within normal limits Cervical ROM: within normal limits Mallampati: Class II Dentition: full Anesthetic Plan ASA status: 3 Anesthesia: General Other: No prior issues with anesthesia NPO since yesterday evening Denies any cardiac issues Current smoker History of PTSD Recent labs reviewed acceptable for procedure EKG showing sinus tachycardia Plan for GETA Medications/Allergies Home Medications ?Medication ?Instructions ?Recorded ?Confirmed ?Last Taken ?Type albuterol sulfate 90 mcg/actuation 2 puff inhalation Q6H PRN 08/22/20 12/31/24 Unknown Rx aerosol inhaler shortness of breath or wheezing #6.7 grams Bone Growth Stimulator #1 ea 12/23/24 Unknown Rx acetaminophen 325 mg capsule 1,000 mg PO PRN PRN Pain 12/31/24 12/31/24 12/29/24 History Allergies Allergy/AdvReac Type Severity Reaction Status Date / Time Penicillins Allergy Severe breathing Verified 12/11/24 11:44 problems azithromycin (From Zithromax) Allergy Mild diarrhea Verified 12/11/24 11:44 codeine Allergy ADR-Anxiety Verified 12/11/24 11:44 latex Allergy ALGY-Anaphy Verified 12/11/24 11:44 laxis ondansetron (From Zofran) Allergy ADR-Anxiety Verified 12/11/24 11:44 promethazine (From Phenergan) Allergy ADR-Anxiety Verified 12/11/24 11:44 tramadol Allergy ADR-Anxiety Verified 12/11/24 11:44 hydroxyzine AdvReac throwing up Verified 12/11/24 11:44 [facility] Anesthesia Medical History (Updated 12/27/24 @ 00:00 by ANNITA Barreto) Other stimulant dependence, in remission Major depressive disorder, recurrent, moderate Psychiatric care DANIEL (generalized anxiety disorder) PTSD (post-traumatic stress disorder) Breast mass, right Depression Paitet has history of depression and was seen in April 2019 and started on Lexapro 10mg. Surgical History History of carpal tunnel release History of appendectomy History of cholecystectomy History of hysterectomy Family History Other Bipolar disorder CAD (coronary artery disease) Cancer Diabetes Hypertension Stroke Suicide Denies family history of Anesthesia complication Bleeding disorder Social History Smoking and tobacco/nicotine status: current every day tobacco/nicotine user cigarettes Packs smoked per day: 0.5 Years cigarettes smoked: 22 Quit status (tobacco/nicotine): considering quitting Second hand smoke exposure: No Alcohol intake: former Substance/Drug Use: former Date of last use: clean for 13 yeras Adopted: No Caregiver/support person: No Lives independently: Yes Household members: children Housing: Manufactured/Mobile home Marital status: Single Number of children: 2 Number of grandchildren: 0 Highest education level completed: Some College, No Degree service: No Current occupational status: employed 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
--- NOTE | 2025-01-04 07:09 | W.PM.OPSUD ---
Surgery/Procedure H&P Update DATE OF PROCEDURE: January 04, 2025 DATE H&P PERFORMED: 12/10/24 H&P UPDATE INFORMATION: I have reviewed H&P completed within last 30 days, I have examined patient prior to procedure and No changes to prior documentation PREOP DIAGNOSIS: Lumbar stenosis with neurogenic claudication PLANNED PROCEDURE: Operation Date: 01/04/25 07:00 Proposed Procedures p Posterior Lumbar Interbody Fusion PLIF(Not Applicable) - Elvis Cunningham DO
[2025-01-04] MEDS: lidocaine-epi 1% 20 mL INJ 10 ML INJECTION (08:36)
[2025-01-04] MEDS: heparin, porcine 1,000 unit/mL INJ 10 mL 10000 UNIT IRRIGATION (08:49)
[2025-01-04] MEDS: tobramycin 40 mg/mL SDV 2mL 120 MG XX (09:11)
--- NOTE | 2025-01-04 10:48 | P.OP_ITS ---
Operative Report Date of procedure: January 04, 2025 Pre-op diagnosis: Lumbar stenosis with neurogenic claudication Post-op diagnosis: same Procedure done: 1. L4/5 Interbody fusion with posterolateral fusion 2. L3/4 interbody fusion with posterolateral fusion 3. Instrumentation posteriorly from L3-L5 4. Cage at L4/5 5. Cage at L3-4 6. L4-5 laminectomy with facetectomy 7. L3-4 laminectomy with facetectomy 8. use of autograft from same incision 9. allograft 10. Bone marrow aspirate from right iliac crest 11. Use of care navigation stereotactic for the spine Surgeon: Elvis Cunningham DO Estimated blood loss (mL): 500 Procedure: 1. L4/5 Interbody fusion with posterolateral fusion 2. L3/4 interbody fusion with posterolateral fusion 3. Instrumentation posteriorly from L3-L5 4. Cage at L4/5 5. Cage at L3-4 6. L4-5 laminectomy with facetectomy 7. L3-4 laminectomy with facetectomy 8. use of autograft from same incision 9. allograft 10. Bone marrow aspirate from right iliac crest 11. Use of care navigation stereotactic for the spine Patient is brought to the operative suite. After undergoing anesthesia, the patient had neuro monitoring attached. Patient was then placed in the prone position on the Tereso table. All areas of impingement were well-padded. Patient was then prepped and draped in the normal sterile fashion. Skin incision was then made L3 check -L5. Subperiosteal dissection was made out to the transverse processes of L3 bilaterally, L4 bilaterally and L5 bilaterally. The [employer] bone marrow aspirate kit was used to aspirate bone marrow aspirate. This was done by using the sharp probe to open up the bone. Aspiration was performed and then the blunt probe was then used to dissect down to through the bone tunnel. An aspirating well drawn back a millimeter approximately 20 cc of bone marrow aspirate was used. And mixed with the allo graft and autograft bone that will be used. Next attention was brought to placing the fiducial for the computer navigation. Was done by placing 2 pins in the right iliac crest which were removed to do in the case. The fiducial was attached. And then the C-arm was brought in and the information from serum was loaded the computer for later used with the computer navigation. The technique for placing the pedicle screws was to use a drill followed by the gearshift probe linked to computer navigation. Followed by the ball probe to feel the superior inferior medial lateral philip of the pedicles. Then placement of the screws using the computer navigation. Was done at each pedicle. Screws were placed at L3 bilaterally, L4 bilaterally and L5 bilaterally . Next attention was brought to performing the laminectomy ofL4. This was done using the high-speed bur Kerrisons and curettes. Once the lamina was removed and then attention was brought to performing a partial facetectomy on the c ontralateral side. This was done again using the high-speed bur curettes and Kerrisons. The ligamentum flavum was taken down bilaterally from L4 to L5. Attention was then brought to the facet on the ipsilateral side. The facet was taken down. The L5 nerve was decompressed as it passed around the L5 pedicle. The laminectomy was done for purposes of decompressing the nerve as well as placement of the cage. The L4 nerve was identified as it traversed through the L4/5 foramen. The thecal sac was identified and retracted. The L4/5 disc base was identified. Using a knife the disc base was opened. And then sequential lee were placed. The first shaver was a 6 and the last shaver was a 9. Using a pituitary and down going curette the endplates were scraped and disc material was removed from the space. Once adequate decompression of the disc base was felt to be had. Osteoamp sponge was packed into the anterior aspect of the disc base. Then a size 10 cage from [employer] was placed after packing osteoamp into the cage. While placing the cage the thecal sac and L5 nerve was protected. C arm was used to ensure that the cages placed in the appropriate position. Next attention was brought to performing the laminectomy ofL3. This was done using the high-speed bur Kerrisons and curettes. Once the lamina was removed and then attention was brought to performing a partial facetectomy on the contralateral side. This was done again using the high-speed bur curettes and Kerrisons. The ligamentum flavum was taken down bilaterally from L3 to L4. Attention was then brought to the facet on the ipsilateral side. The facet was taken down. The L4 nerve was decompressed as it passed around the L4 pedicle. The laminectomy was done for purposes of decompressing the nerve as well as placement of the cage. The L3 nerve was identified as it traversed through the L3/4 foramen. The thecal sac was identified and retracted. The L3/4 disc base was identified. Using a knife the disc base was opened. And then sequential lee were placed. The first shaver was a 6 and the last shaver was a 9. Using a pituitary and down going curette the endplates were scraped and disc material was removed from the space. Once adequate decompression of the disc base was felt to be had. Osteoamp sponge was packed into the anterior aspect of the disc base. Then a size 10 cage from [employer] was placed after packing osteoamp into the cage. While placing the cage the thecal sac and L4 nerve was protected. C arm was used to ensure that the cages placed in the appropriate position. Attention was then brought to attaching the rods to the screws placed in the L3- L5 bilaterally. Caps were torqued into position. Locking the construct in place. Wound was copiously irrigated and then attention was brought to decorticating the facets and transverse processes laterally. Bone that was taken down from the lamina was used along with osteoamp fibers and sponges were packed into the lateral gutters along the facet joints. This was done bilaterally. Wound was then closed in a layered fashion starting with the thoracolumbar fascia. 0-vicryl was used the sub cutaneous tissue was closed with 2-0 vicryl and skin with 4-0 monocryl. Glue was then used to seal the skin and a steril dressing was applied. Patient was then placed in the supine position. The endotracheal tube was removed and patient was transferred to the PACU in stable condition.
[2025-01-04] MEDS: fentaNYL 50 mcg/mL INJ 2mL IVP ×2 (11:40→11:50)
--- NOTE | 2025-01-04 12:06 | ANE.PACU2 ---
Inpatient post-anesthesia follow up: Airway intact: Yes Vital signs: Temperature 98.0 F Pulse Rate 88 Respiratory Rate 17 Blood Pressure 120/73 Pulse Oximetry 95 Oxygen Delivery Me thod Room Air Oxygen Flow Rate 6 Fraction of Inspir ed Oxygen Hydration adequate: Yes Nausea and vomiting: No Pain level: 1 Mental status: Baseline
[2025-01-04] MEDS: HYDROcodone-acetaminophen 5-325 mg Tablet PO ×2 (13:11→18:06)
--- NOTE | 2025-01-04 16:27 | XR_ITS ---
WS: [id number] C-ARM RADIOGRAPHS LUMBAR SPINE; 4 IMAGES HISTORY: PHI PICS COMPARISON: None available. Intraoperative imaging during posterior lumbar fusion from L3-L5. Interbody spacers at L3-4 and L4-5. XR/XR lumbar spine 2-3V* [id number] IMPRESSION: Intraoperative imaging during posterior lumbar spine fusion.
[2025-01-04] MEDS: morphine 4 mg/mL SDV 1 mL 2 MG IVP ×2 (16:30→20:51)
[2025-01-04 19:51] LABS: Hematocrit 32.7 % (36-47); Hemoglobin 10.60 g/dL (11.27-16.99); Mean Corpuscular HGB Conc 32.4 g/dL (30-55); Mean Corpuscular Hemoglobin 27.3 pg (27-33); Mean Corpuscular Volume 84.3 fl (85-98); Nucleated Red Blood Cells % 0 %; Platelet Count 221 10^3/cmm (157-399); Red Blood Count 3.88 10^6/uL (3.85-5.65); White Blood Count 9.87 10^3/uL (3.29-11.43)
[2025-01-04 20:09] LABS: Alanine Aminotransferase 29 U/L (0-33); Albumin Level 3.5 g/dL (3.5-5.2); Alkaline Phosphatase 56 U/L (35-105); Anion Gap 14.6 (5-19); Aspartate Amino Transferase 38 U/L (0-32); Blood Urea Nitrogen 14 mg/dL (6-20); Calcium 8.0 mg/dL (8.5-10.5); Carbon Dioxide 21 mmol/L (22-29); Chloride 105 mmol/L (98-107); Creatinine Clr Calc Pharmacy 147.7913; Globulin 2.4 g/dL (1.3-4.6); Glucose 155 mg/dL (65-115); Osmolality Calculated 286 mOsm/kg (285-295); Potassium 4.6 mmol/L (3.5-5.1); Sodium 136 mmol/L (136-145); Total Protein 5.9 g/dL (6.6-8.7)
[2025-01-05 02:36] VITALS: RESP 16
[2025-01-05] MEDS: morphine 4 mg/mL SDV 1 mL 2 MG IVP ×2 (02:36→07:59)
[2025-01-05 03:55] VITALS: BP 103/67; PULSE 74; RESP 16; TEMP 36.6; O2SAT 97
[2025-01-05] MEDS: HYDROcodone-acetaminophen 5-325 mg Tablet PO ×2 (05:00→10:28)
[2025-01-05 07:36] VITALS: BP 110/64; PULSE 74; RESP 16; TEMP 36.4; O2SAT 97
[2025-01-05 07:59] VITALS: RESP 18
--- NOTE | 2025-01-05 09:59 | PC.CHAP ---
Pastoral Care Encounter/Spiritual Assessment Type of Contact [] Declined ecg technician visit [] Patient/Family/Request visit [] Outpatient visit [] Follow-up visit [] Physician referral [] Code/Alert [x] Routine visit [] Staff referral [] Actively dying [] Patient sleeping [] Family support [] [] Out of room [] Palliative care [] [] Receiving care in room [] Pre-surgical visit [] Trauma [] Long length of stay [] ICU visit [] Other: Relational/Emotional Strength [x] Patient feels connected with others/family/visitors/staff [] Distress [] Loneliness/isolation [] Abandonment Spirituality of Patient [x] Person of Luz [] Attends Protestant of their Luz [x] Believes in Prayer [] Reads Bible or Temple materials [] There are Spiritual issues to be addressed Esthetic Dermatologist Interventions [x] Prayer [x] Active listening [] Non-anxious presence [x] Spiritual/emotional support [] Crisis/trauma care [] Spiritual counseling [] Bereavement support [] Provided bereavement packet [] Provided Bible/devotional materials [] Provided toy/stuffed animal, coloring book to patient or family member [] Provided Communion [] Anointing/[place] [] Salvation [x] Completed spiritual assessment [] Other: Impact on Illness or Injury [] Angry [] Fearful [] Anxious [] Often cries [] Exhaustion [] Unable to work [] Unable to attend confucianist [] Unable to walk/stand [] Unable to read [] Unable to drive [] Unable to eat/drink [] Unable to sleep [] Unable to be with family [] Patient intubated [] Other: Summary Time spent with patient 5 min
[2025-01-05 11:06] VITALS: BP 104/95; PULSE 86; RESP 16; TEMP 36.8; O2SAT 95
[2025-01-05 13:40] VITALS: BP 104/95; PULSE 86; RESP 16; TEMP 36.8; O2SAT 95
== END 2025-01-05 14:00 | disposition home or self-care (01) ==
LOC: MEDSURG 11:20
PROVIDERS: Admitting Provider Orthopaedic Surgery; PCP Nurse Practitioner; Visit Provider Orthopaedic Surgery
PROC: (CPT 22612; principal; 2025-01-04 07:00)
DX: M48.062 Spinal stenosis, lumbar region with neurogenic claudication (principal); F32.9 Major depressive disorder, single episode, unspecified; F41.9 Anxiety disorder, unspecified; F43.10 Post-traumatic stress disorder, unspecified; F15.21 Other stimulant dependence, in remission; F17.210 Nicotine dependence, cigarettes, uncomplicated
CPT/HCPCS: 22633; 22634; 22614 ×2; 63052; 63053; 22853 ×2; 61783; 20930; 20936; 22840; 36415; 51702; 72100; 76000; 80053; 85025; 86850; 86900; 97116; 97161; C1713; C1776; C9359; G0378; J0131; J0330; J1171; J1644; J1885; J2250; J2270; J2704; J3010; J3260; J3373; J3490; J7030; J7120; J9999

== ENCOUNTER 2025-01-07 10:59 | Emergency (ER) | payer BC, MEDICAID, SELFPAY ==
[2024-10-13 15:12] VITALS: BP 147/95; BMI 34.9
[2025-01-07 11:02] VITALS: BP 113/88; PULSE 96; RESP 22; TEMP 37; O2SAT 99
--- OUTSIDE RECORDS SUMMARY | 2025-01-07 11:18 | XMS_ITS | Patient Health Record ---
Author Organization [facility] Address [address] [place], [place] [id number] Care Team Providers Care Pals Specialist Name Role Phone Jose Luis TAMEZ, Hermes Primary Care Provider Unavailab Marley TAMEZ, Fish Unavailable [phone] Allergies Allergen (clinical drug ingredient) Drug/Non Drug [...] Duration) Notes Start Date End Date Status [place] 325 mg-7.5 mg 1-2 tabs po orally Q4-6H prn pain (max 6/day; hold within 4H of planned sleep); Duration: 23 days 03/18/2018 Active FLUoxetine 20 mg 1 cap orally once a day Active Vitamin B-12 500 mcg 1 tab orally once a day Active tiZANidine 4 mg 1-2 tabs po orally TID prn spasm; Duration: 30 day(s) Active acetaminophen-hydroco done 325 mg-7.5 mg 1-2 tabs po orally Q4-6H prn pain (max 6/day; hold within 4H of planned sleep); Duration: 30 day(s) Printed prescription given (1-month). Active [...] Status Risk Notes Problem Low back pain (735138634) Low back pain (M54.5) Active confirmed Problem Lumbosacral spondylosis without myelopathy (05454132) Spondylosis without myelopathy or radiculopathy, lumbar region (M47.816) Active confirmed Problem High risk drug monitoring status (169317201) alf (current) use of opiate analgesic (Z79.891) Active confirmed Problem Hypersomnia (16397939) Hypersomnia, unspecified (G47.10) Active confirmed Problem Sleep disorder (21027692) Other sleep disorders (G47.8) Active confirmed Problem Radiculopathy due to lumbar intervertebral disc disorder (730831998346925) Intervertebral disc disorders with radiculopathy, lumbar region (M51.16) Active confirmed Problem Disorder of lumbar disc (976958912) Other intervertebral disc disorders, lumbar region (M51.86) Active confirmed Problem Myalgia (83792673) Myalgia (M79.1) Active confirmed Problem Long-term current use of drug therapy (413637716) Other halfway (current) drug therapy (Z79.899) Active confirmed Problem Muscle pain (59277113) Myalgia, other site (M79.18) Active confirmed Plan Of Treatment No Information Insurance Providers Payer Name Payer Address Payer Phone Subscriber Number Group Number Insured Name Patient Relationship to Insured Coverage Start Date Coverage End Date [facility] [employer] ATTN CLAIMS [address] [place] [phone] [id number] Nicolasa Conklin Self - patient is the [...]
--- NOTE | 2025-01-07 12:04 | ED_ITS ---
HPI - Back Pain/Injury General: Chief Complaint: Back Pain/Injury Stated Complaint: back pain Time Seen by Provider: 01/07/25 11:13 Source: patient Mode of arrival: EMS Limitations: no limitations History of Present Illness: This patient presents to the emerged part because of acute back pain. She had a lumbar fusion at this facility by Dr. Cunningham on Saturday. She states she was doing well postoperatively and did well yesterday. She states that she had a nightmare or a dream that caused her to jerk in her sleep and she has had increasing pain in her low back with some numbness in her right leg since that episode. She states the pain radiates to both hips. And is exacerbated by any movement and not controlled by her at home pain regimen. She has not had a bowel movement postoperatively yet but does not feel the urge. She is not having difficulty with urinary control and is urinating normally. She denies any specific weakness but states that any movement exacerbates her low back pain. She has had 2 prior decompressive surgeries in the same region in the past. She denies any fevers or chills falls or other injuries. MD elicited complaint: back pain Pertinent past history: back surgery Quality: sharp and stabbing Associated symptoms: Deny abdominal pain, chills, dysuria, fever(s), hematuria, nausea or vomiting Related Data Home Medications ?Medication ?Instructions ?Recorded ?Confirmed hydrocodone 5 mg-acetaminophen 325 1 - 2 tab PO .Q4-6H PRN Pain 01/07/25 01/07/25 mg tablet Previous Rx's ?Medication ?Instructions ?Recorded Bone Growth Stimulator #1 ea 12/23/24 Allergies Allergy/AdvReac Type Severity Reaction Status Date / Time Penicillins Allergy Severe breathing Verified 12/11/24 11:44 problems azithromycin (From Zithromax) Allergy Mild diarrhea Verified 12/11/24 11:44 codeine Allergy ADR-Anxiety Verified 12/11/24 11:44 latex Allergy ALGY-Anaphy Verified 12/11/24 11:44 laxis ondansetron (From Zofran) Allergy ADR-Anxiety Verified 12/11/24 11:44 promethazine (From Phenergan) Allergy ADR-Anxiety Verified 12/11/24 11:44 tramadol Allergy ADR-Anxiety Verified 12/11/24 11:44 hydroxyzine AdvReac throwing up Verified 12/11/24 11:44 Review of Systems Const: Denies: fever(s), chills or body aches ENMT: Denies: odynophagia or nasal discharge Card: Denies: chest pain or palpitations Resp: Denies: dyspnea, productive cough or non-productive cough GI: Denies: abdominal pain, nausea, vomiting or diarrhea : Denies: flank pain, difficulty voiding, dysuria, urinary incontinence or hematuria Musc: Reports: back pain; Denies: neck pain Skin/Breast: Denies: rash or pruritus Neuro: Reports: numbness in extremities; Denies: headache(s) or weakness in extremities PFSH ED PFSH: Medical History (Updated 01/07/25 @ 14:56 by Austin Huggins DO) Other stimulant dependence, in remission Major depressive disorder, recurrent, moderate Psychiatric care DANIEL (generalized anxiety disorder) PTSD (post-traumatic stress disorder) Breast mass, right Depression Yung has history of depression and was seen in April 2019 and started on Lexapro 10mg. Surgical History History of carpal tunnel release History of appendectomy History of cholecystectomy History of hysterectomy Family History Other Bipolar disorder CAD (coronary artery disease) Cancer Diabetes Hypertension Stroke Suicide Denies family history of Anesthesia complication Bleeding disorder Social History Smoking and tobacco/nicotine status: current every day tobacco/nicotine user cigarettes Packs smoked per day: 0.5 Years cigarettes smoked: 22 Quit status (tobacco/nicotine): considering quitting Second hand smoke exposure: No Alcohol intake: former Substance/Drug Use: former Date of last use: clean for 13 yeras Adopted: No Caregiver/support person: No Lives independently: Yes Household members: children Housing: Manufactured/Mobile home Marital status: Single Number of children: 2 Number of grandchildren: 0 Highest education level completed: Some College, No Degree service: No Current occupational status: employed 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 Const: COMMON NORMALS: patient oriented x3, no limitations and alert NUTRITIONAL APPEARANCE: obese HENMT: COMMON NORMALS: Normal nasal mucous membranes and turbinates present and moist oral mucous membranes NOSE: Normal nasal mucous membranes and turbinates present Eye: COMMON NORMALS: Equal, round and reactive pupils present and EOMs intact bilaterally PUPIL: Yes Equal, round and reactive pupils present Neck/C-Spine: COMMON NORMALS: full ROM and supple Chest: COMMONS NORMALS: normal inspection of the chest Resp: COMMON NORMALS: normal respiratory effort and No use of accessory muscles EFFORT & INSPECTION: Yes able to speak in complete sentences Cardio: COMMON NORMALS: regular rate, regular rhythm and Peripheral pulses 2+ throughout RATE: regular rate RHYTHM: regular rhythm PERIPHERAL PULSES: Peripheral pulses 2+ throughout GI: COMMON NORMALS: Normal to inspection, nondistended, normoactive bowel sounds present and Soft to palpation INSPECTION: Yes central obesity PALPATION: Yes Soft to palpation OTHER: There is no palpable bladder noted. Back/Pelvis: OTHER: Examination of her axial spine and lumbar area reveals soft tissue tenderness bilaterally. She has a dressing over her lumbar region which appears to be clean and dry without any evidence of bleeding or other drainage. Again paralumbar soft tissues are also tender to palpation with some guarding and spasm. Limited ability to do straight leg raising as any kind of movement exacerbates her symptoms. Extremity: COMMON NORMALS: normal to inspection, capillary refill normal, no calf tenderness and no pedal edema Neuro: COMMON NORMALS: patient oriented x3, moves all extremities and no focal motor deficits SENSORIUM/ORIENTATION: Yes alert SENSORY EXAM: Yes extremities (Subjective decreased sensation to light touch in the right lower extremity ) Psych: COMMON NORMALS: mental status grossly normal Skin: COMMON NORMALS: no rashes or lesions noted and turgor normal GENERAL SKIN EXAM: no rashes or lesions noted and turgor normal Course Reevaluation(s): Reevaluation #1: Patient is feeling better she is up moving about unaided without difficulty and she is drinking fluids. I reviewed the current findings and the need for close follow-up with her back surgeon as well as return precautions with the emergency department. She voiced understanding and was appreciative of care. Time: 14:55 Vital Signs: Vital signs: Vital Signs Temperature 98.6 F 01/07/25 11:02 Pulse Rate 104 H 01/07/25 14:00 Respiratory Rate 22 H 01/07/25 11:02 Blood Pressure 105/81 01/07/25 14:00 Pulse Oximetry 100 01/07/25 14:00 Oxygen Delivery Me thod Room Air 01/07/25 14:00 MDM - Back Pain/Injury Medical Decision Making Patient presented as noted in the HPI. She just had a recent lumbar fusion at this facility but not by Dr. Cunningham. She had been doing well and then apparently sometime through during the night she had a dream or a nightmare that caused her to jerk and she has had pain in her low back radiating to both hips since that time. She has had no associated falls or other injuries. She had no muscle weakness or perineal numbness or change in sensation or difficulty controlling her urine. She has not had a bowel movement since surgery but she states her intake is not returned back to normal yet and she is not felt the urge to have a bowel movement. Her clinical exam revealed surgical site to be intact and reassuring. She had no midline tenderness other than expected soft tissue tenderness postoperatively. She had no demonstrable neurologic changes or muscle weakness etc. Imaging was obtained to ensure that there was no disruption of her fusion or other concerns which was reassuring. She responded to analgesics with improvement in her symptoms and she was feeling back to where she was 24 hours. She is stable at this time to be discharged she voices understanding of her findings and expected course and return precautions. Labs Radiology Impressions Lumbar Spine CT 01/07/25 12:10 IMPRESSION: 1. Recent postoperative changes pedicle screw fixation L3-L5 with interbody fusion grafts. Dorsal interconnecting rods with bone graft material. 2. Hardware appears in good position. 3. Laminectomy defects with expected recent postoperative changes. 4. No high-grade central canal stenosis considering hardware artifact. No evidence of large hematoma. 5. Expected recent postoperative changes in the subcutaneous soft tissues and laminectomy defects. All radiology interpretation(s) finalized by discharge Discharge Plan Discharge Patient Disposition: Home Clinical Impression: Postoperative back pain Condition: Stable Prescriptions: No Action (DME) Bone Growth Stimulator See Rx Instructions .Route .MEDSUPPLY Qty: 1 0RF Rx Instructions: As directed hydrocodone-acetaminophen 5-325 mg tablet 1 - 2 tab PO .Q4-6H PRN (Reason: Pain) Discharge Orders: Discharge ED (Routine); Ordered 01/07/25 Ordered By: Austin Huggins Referrals: Winter Munoz FNP [Primary Care Provider, Nurse Practitioner] Discharge Diet: Usual diet Discharge Activity: Limit activity as instructed Patient Instructions: Opioid Safety, Pain Management, Patient Portal & Jesus Instructions Activity Restrictions/Additional Instructions: As we discussed there was no evidence of disruption of your surgical site on imaging today. Your symptoms are consistent with likely postoperative pain and spasm triggered by your quick movement in bed last night. Continue with your usual prescribed pain medication. If your symptoms do not continue to improve or worsen anytime or new symptoms develop such as weakness, fever, difficulty with bowel or bladder control or any other concerning symptoms return to the emergency department. Otherwise follow-up with Dr. Cunningham as scheduled. Print Language: Arabic Coding Level of Care Code ED Supervisor Maintenance And Custodians for Danae Bowling
--- NOTE | 2025-01-07 12:10 | CT_ITS ---
WS: [id number] CT LUMBAR SPINE TECHNIQUE: Noncontrast CT of the lumbar spine with coronal and sagittal reformatted images. CLINICAL INFORMATION: 3 days post fusion-increased pain COMPARISON: None. DLP: 1187.[address] scans at [facility] use at least one of these dose optimization techniques: automated exposure control; mA and/or kV adjustment per patient size (includes targeted exams where dose is matched to clinical indication); or iterative reconstruction. FINDINGS: Recent postoperative changes pedicle screw fixation L3-L5 with interbody fusion grafts. Dorsal laminectomy defects with bone graft material. Wide decompressive laminectomy defects. Normal expected postoperative changes in this early postoperative period. No high-grade central canal stenosis visualized. No large hematoma visualized considering hardware artifact. Hardware appears in good position. No other acute findings. Cholecystectomy clips. Adrenal glands are normal. CT/CT lumbar spine wo con* [id number] IMPRESSION: 1. Recent postoperative changes pedicle screw fixation L3-L5 with interbody fu nikia grafts. Dorsal interconnecting rods with bone graft material. 2. Hardware appears in good position. 3. Laminectomy defects with expected recent postoperative changes. 4. No high-grade central canal stenosis considering hardware artifact. No evid ence of large hematoma. 5. Expected recent postoperative changes in the subcutaneous soft tissues and laminectomy defects.
[2025-01-07] MEDS: HYDROmorphone 0.5 MG/0.5 ML INJ 1 MG IVP (12:12)
[2025-01-07 12:30] VITALS: BP 115/72; PULSE 88; O2SAT 96
[2025-01-07 14:00] VITALS: BP 105/81; PULSE 104; O2SAT 100
[2025-01-07] MEDS: HYDROmorphone 0.5 MG/0.5 ML INJ IVP (14:00)
[2025-01-07 15:11] VITALS: BP 112/77; PULSE 96; O2SAT 97
== END 2025-01-07 15:12 | disposition home or self-care (01) ==
PROVIDERS: Emergency Provider Emergency Medicine; PCP Nurse Practitioner
DX: G89.18 Other acute postprocedural pain (principal); F17.210 Nicotine dependence, cigarettes, uncomplicated; M43.26 Fusion of spine, lumbar region; Z98.1 Arthrodesis status
CPT/HCPCS: 72131; 96374; 96376; 99285; J1171

== ENCOUNTER → 2025-02-16 14:04 | Outpatient (BNVA) | payer BC, MEDICAID, SELFPAY ==
[2024-10-13 15:12] VITALS: BP 147/95; BMI 34.9
== END ==
PROVIDERS: PCP Nurse Practitioner; Visit Provider Orthopaedic Surgery
DX: Z98.890 Other specified postprocedural states (principal); Z98.1 Arthrodesis status
CPT/HCPCS: 72100